=== PATIENT | male | born 1950 | race Caucasian/White ===

== ENCOUNTER → 2017-10-17 16:18 | Outpatient (REF) | payer OTHER, SELFPAY ==
[2017-10-17 20:01] LABS: Abs Immature Grans 0.02 k/cumm (0.0-0.09); Absolute Basophil Count 0.05 k/cumm (0.0-0.2); Absolute Eosinophil Count 0.33 k/cumm (0.0-0.7); Absolute Monocyte Count 0.91 k/cumm (0.11-0.7); Absolute Neutrophil Count 6.62 k/cumm (1.2-6.7); Basophils % 0.5; Eosinophils % 3.4; HCT 42.8 % (40.0-50.0); HGB 14.7 g/dL (13.5-17.5); Immature Grans % 0.2; Lymphocytes % 17.7; Mean Corp. HGB Concentration 34.3 g/dL (32.0-36.0); Mean Corpuscular Hemoglobin 30.1 pg (27.0-33.0); Mean Corpuscular Volume 87.5 fL (80-95); Mean Platelet Volume 10.2 fL (8.0-11.0); Monocytes % 9.4; Neutrophils % 68.8; Platelet Count 248 x1000/uL (130-400); RBC 4.89 m/cumm (4.50-6.00); RBC Distribution Width 12.7 % (11.8-14.1); White Blood Cell Count 9.63 k/cumm (4.4-10.8)
[2017-10-17 20:09] LABS: ALT 18 U/L (12-78); AST 12 U/L (15-37); Alkaline Phosphatase 80 U/L (46-116); Anion Gap 8.5 mmol/L (3-11); BUN 22 mg/dL (7-18); Bilirubin, Total 0.5 mg/dL (0.2-1.0); CO2 28.5 mmol/L (21.0-32.0); Calcium 8.8 mg/dL (8.5-10.1); Chloride 102 mmol/L (98-107); Glucose 87 mg/dL (70-100); Potassium 3.2 mmol/L (3.5-5.1); Sodium 139 mmol/L (136-145); Total Protein 7.1 g/dL (6.4-8.2)
== END ==
LOC: LBN 16:18
PROVIDERS: PCP Family Medicine; Visit Provider Family Medicine
DX: R19.7 Diarrhea, unspecified (principal)
CPT/HCPCS: 80053; 85025; 87324

== ENCOUNTER → 2017-10-21 07:20 | Outpatient (REF) | payer OTHER, SELFPAY | LOC: LBN 07:20 | PROVIDERS: PCP Family Medicine; Visit Provider Family Medicine | DX: R19.7 Diarrhea, unspecified (principal) | CPT/HCPCS: 87324 ==

== ENCOUNTER 2017-11-06 07:12 | Outpatient (REF) | payer OTHER, SELFPAY ==
[2017-11-07 11:37] LABS: Campylobacter PCR SEE COMMENTS; Salmonella PCR SEE COMMENTS; Shiga Toxin PCR SEE COMMENTS; Shigella/Enteroinvasive Ecoli SEE COMMENTS
== END 2017-11-06 07:32 ==
LOC: LBN 07:12
PROVIDERS: PCP Family Medicine; Visit Provider Internal Medicine Gastroenterology
DX: R19.7 Diarrhea, unspecified (principal)
CPT/HCPCS: 87329; 87505; 83630; 87324

== ENCOUNTER 2017-12-11 07:24 | Outpatient (CLI) | payer OTHER, SELFPAY ==
[2017-12-11 09:40] LABS: ALT 19 U/L (12-78); AST 14 U/L (15-37); Albumin 4.3 g/dL (3.4-5.0); Alkaline Phosphatase 58 U/L (46-116); Anion Gap 7.6 mmol/L (3-11); BUN 19 mg/dL (7-18); Bilirubin, Total 0.9 mg/dL (0.2-1.0); CO2 32.4 mmol/L (21.0-32.0); CREATININE 0.97 mg/dL (0.70-1.30); Chloride 101 mmol/L (98-107); Glucose 88 mg/dL (70-100); Potassium 3.8 mmol/L (3.5-5.1); Sodium 141 mmol/L (136-145); Total Protein 7.3 g/dL (6.4-8.2)
[2017-12-11 12:41] LABS: Calcium 9.8 mg/dL (8.5-10.1)
[2017-12-11 13:38] LABS: Cholesterol 140 mg/dL (50-200); HDL Cholesterol 49 mg/dL (40-60); LDL CHOLESTEROL 86 mg/dL (<100); Triglyceride 47 mg/dL (30-150)
[2017-12-12 12:15] LABS: PSA, Diagnostic 1.1 ng/ml (0-4.5)
== END 2017-12-11 07:44 ==
PROVIDERS: PCP Family Medicine; Referring Provider Urology; Visit Provider Family Medicine
DX: E78.5 Hyperlipidemia, unspecified (principal); N41.1 Chronic prostatitis; Z12.5 Encounter for screening for malignant neoplasm of prostate
CPT/HCPCS: 36415; 80053; 80061; 83721; 84153

== ENCOUNTER 2018-06-17 08:54 | Outpatient (REF) | payer OTHER, SELFPAY ==
[2018-06-17 13:44] LABS: Lipase 150 U/L (73-393)
[2018-06-17 13:49] LABS: ALT 18 U/L (12-78); AST 12 U/L (15-37); Albumin 4.4 g/dL (3.4-5.0); Alkaline Phosphatase 64 U/L (46-116); Anion Gap 7.4 mmol/L (3-11); BUN 26 mg/dL (7-18); Bilirubin, Total 0.8 mg/dL (0.2-1.0); CO2 30.6 mmol/L (21.0-32.0); CREATININE 1.28 mg/dL (0.70-1.30); Chloride 99 mmol/L (98-107); Estimated GFR 56.23 (mL/min/1.73m2); Glucose 103 mg/dL (70-100); Potassium 3.7 mmol/L (3.5-5.1); Sodium 137 mmol/L (136-145); Total Protein 7.3 g/dL (6.4-8.2)
[2018-06-17 13:59] LABS: Calcium 9.2 mg/dL (8.5-10.1)
[2018-06-18 09:48] LABS: PSA, Diagnostic 1.3 ng/ml (0-4.5)
== END 2018-06-17 09:14 ==
LOC: LBN 08:54
PROVIDERS: Urology; PCP Family Medicine; Visit Provider Family Medicine
DX: R10.9 Unspecified abdominal pain (principal); N40.1 Benign prostatic hyperplasia with lower urinary tract symptoms; N13.8 Other obstructive and reflux uropathy; N41.1 Chronic prostatitis
CPT/HCPCS: 80053; 83690; 84153

== ENCOUNTER 2018-06-18 01:09 | Outpatient (CLI) | payer OTHER, SELFPAY ==
--- NOTE | 2018-06-18 07:08 | DI.US_ITS ---
SYMPTOM/DIAGNOSIS: SPLENIC CYST PREVIOUSLY, NEW PAIN IN SAME AREA, R10.9 ABDOMEN ULTRASOUND: The aorta and vena cava are normal. The liver is normal. The gallbladder is intact. No gallstones are seen. There is no evidence of ductal dilatation. The pancreas is intact. The spleen is unremarkable. The right kidney measures 11 cm. An 8 mm. lateral cyst is demonstrated. The left kidney measures 10.3 cm. There is no evidence of abdominal free fluid. SUMMARY: The study is unremarkable save for an 8 mm. right renal cyst.
== END 2018-06-18 01:29 ==
PROVIDERS: PCP Family Medicine; Visit Provider Family Medicine
DX: R10.9 Unspecified abdominal pain (principal); N28.1 Cyst of kidney, acquired
CPT/HCPCS: 76700

== ENCOUNTER 2018-12-02 19:56 | Inpatient (IN) | payer OTHER, SELFPAY ==
[2018-12-02] VITALS (34 sets, daily range): BP systolic 113–146; BP diastolic 49–86; PULSE 61–90; RESP 12–27; TEMP 36.5–37; O2SAT 92–98
--- NOTE | 2018-12-02 20:11 | ED.GENADUL_ITS ---
Discharge Plan Disposition Patient Disposition: [facility] INPATIENT Condition: Fair Discharge Details Chief Complaint: Chest Pain Clinical Impression: Chest pain Primary Care Provider: Kelvin Hicks ED Provider: Lucio Pratt [place] Meds and New Rx's Prescriptions: No Action finasteride 5 mg tablet 5 mg PO DAILY Qty: 90 RF: 4 glucosam-chond mk-lrrovf-ai ac 1 EACH capsule 1 ea PO BID RF: 0 aspirin 325 MG tablet 325 mg PO DAILY RF: 0 acetaminophen 500 MG tablet 1,500 mg PO BID RF: 0 nitroglycerin [Nitrostat] 0.4 MG tablet, sublingual 0.4 mg Sublingual PRN Qty: 30 RF: 12 pantoprazole [Protonix] 40 mg tablet,delayed release (DR/EC) 40 mg PO DAILY Qty: 90 RF: 3 metoprolol succinate 100 mg tablet extended release 24 hr 100 mg PO DAILY Qty: 90 RF: 3 rosuvastatin [Crestor] 10 mg tablet 10 mg PO DAILY Qty: 90 RF: 3 moexipril-hydrochlorothiazide 15-25 mg tablet 1 tab PO DAILY Qty: 90 RF: 3 tamsulosin 0.4 mg capsule 0.4 mg PO BID RF: 0 Medical Decision Making Patient presenting with nonexertional chest pain that radiates to left arm. Occurring more frequently and lasting longer since initial symptoms a week to week and a half ago. No associated symptoms. Atypical presentation for coronary disease in the past with normal stress testing but continued symptoms and positive calf. ACS is a strong consideration. Initial EKG does not show acute ST changes. IV in place. He does take 325 of aspirin a day and took it this morning. He is given a half dose chewable aspirin here. Laboratory studies and chest x-ray ordered. Will discuss with hospitalist observation admission for cardiology eval tomorrow. Patient's initial laboratory studies unremarkable other than hypokalemia which is replaced orally. Chest x-ray unremarkable. Case discussed with hospitalist who agrees with observation admission. Patient remained pain-free and stable here. Medical Records Medical records reviewed: Yes I reviewed the patient's medical records. Lab Data Lab results reviewed: Yes I reviewed the patient's lab results. ECG Data Attestation: I personally reviewed and interpreted this ECG (s) as follows: Prior ECG tracings: available for review Interpretation: Normal sinus rhythm at a rate of 83. Frequent PVCs. Normal intervals and axis otherwise. No acute ST changes. No significant change from previous other than the PVCs. HPI General Mode of arrival: ambulatory . Date/Time Provider Initiated Documentation: 12/02/18 20:08 . Limitations to Documentation: no limitations . Information obtained by: patient, family, RN notes reviewed and old records reviewed . HPI Narrative: Patient presents to ED with complaint of intermittent chest pain occurring on and off for the last week to week and a half. Described as a burning sensation in the left chest that radiates to shoulder. The last few times it has been radiating down the arm. It is been random and not exertional. There are no associated symptoms. He does have known coronary disease with previous stenting. He had atypical presentations at that time with some shortness of breath on exertion not so much chest pain. Per his and patient stress testing was always negative but because of continued symptoms he was cathed and found to have greater than 95% occlusion. Today's episodes of pain have been prolonged. Currently no symptoms. He does take 325 of aspirin a day. He is off Plavix. Related Data Home Medications Medication Instructions Recorded Confirmed glucosam-chond mp-giufyc-to ac 1 ea PO BID 05/23/12 12/02/18 aspirin 325 mg PO DAILY tab-cap 05/28/12 12/02/18 acetaminophen 1,500 mg PO BID tab-cap 11/30/16 12/02/18 nitroglycerin [Nitrostat] 0.4 mg SUBLINGUAL PRN #30 tab 11/30/16 12/02/18 pantoprazole 40 mg tablet,delayed 40 mg PO DAILY #90 tab 05/23/18 12/02/18 release finasteride 5 mg tablet 5 mg PO DAILY #90 tab 06/02/18 12/02/18 metoprolol succinate 100 mg 100 mg PO DAILY #90 tab 08/12/18 12/02/18 tablet,extended release 24 hr rosuvastatin 10 mg tablet 10 mg PO DAILY #90 tab 09/01/18 12/02/18 moexipril 15 1 tab PO DAILY #90 tab-cap 10/13/18 12/02/18 mg-hydrochlorothiazide 25 mg tablet tamsulosin 0.4 mg PO BID 12/02/18 12/02/18 Previous Rx's Medication Instructions Recorded nitroglycerin [Nitrostat] 0.4 mg SUBLINGUAL PRN #30 tab 11/30/16 pantoprazole 40 mg tablet,delayed 40 mg PO DAILY #90 tab 05/23/18 release finasteride 5 mg tablet 5 mg PO DAILY #90 tab 06/02/18 metoprolol succinate 100 mg 100 mg PO DAILY #90 tab 08/12/18 tablet,extended release 24 hr rosuvastatin 10 mg tablet 10 mg PO DAILY #90 tab 09/01/18 moexipril 15 1 tab PO DAILY #90 tab-cap 10/13/18 mg-hydrochlorothiazide 25 mg tablet Allergies Allergy/AdvReac Type Severity Reaction Status Date / Time iohexol [From Omnipaque] Allergy Intermediate RASH HEAD Verified 12/02/18 20:04 TO TOE atorvastatin Allergy Unknown Skin Rash Verified 12/02/18 20:04 General Stated Complaint: Chest Pain MORRIS: 2 Review of Systems Review of Systems Narrative: 12/08 Review of Systems completed and is negative except as stated above in HPI (Systems reviewed: Const, Eyes, ENT, Resp, CV, GI, , MSK, Skin, Neuro) PFSH Medical History 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) Cor athrscl-uns vessel (Chronic 06/09/07) 2 CHIQUITA stents RCA 05/2007; and one RCA 03/2010; Heitzman Essential hypertension (Chronic 11/28/12) Gastroesophageal reflux disease (Chronic 02/25/03) EGD Dr Rapp ([facility] [place]) 2003; senior care PPI Other and unspecified hyperlipidemia (Chronic 05/28/12) LDL baseline 167 Surgical History History of heart artery stent (Chronic) Social History Smoking/Tobacco Use Status: Never Alcohol Intake: current Alcohol Intake frequency: a few times a month Alcohol type: beer Drug use: Never Substance use type: does not use Adopted: Yes Household members: spouse Housing: house Number of Children: 2 number of grandchildren: 2 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 Mildly hypertensive. Otherwise normal vital signs and room air pulse symmetry. Const: WDWN male in NAD. HEENT: NC/AT. Normal facial exam. Eyes: Normal conjunctiva and sclera. Neck: Supple. Trachea midline. Lungs: Normal respiratory effort. Lungs are clear. Cor: RRR without murmur/gallop. Good radial pulses. GI: Soft. NT/ND. No guarding or rebound. Neuro: A+O x 3. CN grossly in tact. Good strength and no focal deficit. Ext: No C/C/E. No calf tenderness. Skin: Warm and dry without rash. Course Vital Signs Vital signs: Vital Signs Temperature 98.1 F 12/02/18 19:56 Pulse 75 12/02/18 19:56 Respiratory Rate 20 12/02/18 19:56 Blood Pressure 146/77 H 12/02/18 19:56 Pulse Oximetry 97 12/02/18 19:56 Temperature 98.1 F 12/02/18 19:56 Temperature Source Skin 12/02/18 19:56 Pulse 75 12/02/18 19:56 Respiratory Rate 20 12/02/18 19:56 Respiratory Effort 12/02/18 20:07 Blood Pressure 146/77 H 12/02/18 19:56 Blood Pressure Position Sitting 12/02/18 19:56 Pulse Oximetry 97 12/02/18 19:56 Oxygen Delivery Method Room Air 12/02/18 19:56 Oxygen Flow Rate 0 12/02/18 19:56 Pain Level 2 12/02/18 19:56 Comment points to left side of chest 12/02/18 19:56
--- NOTE | 2018-12-02 20:24 | DI.RAD_ITS ---
EXAM: XR CHEST 2V PA LATERAL INDICATION: chest pain. COMPARISON: CHEST 2 VIEWS PA,LAT from 06/05/2017 TECHNIQUE: 2D digital imaging was performed. FINDINGS: The lungs are well expanded and free of infiltrate. There is no pleural effusion. The cardiovascular structures are intact. IMPRESSION: Normal chest.
[2018-12-02] MEDS: Aspirin 81 MG CHEW 243 MG CH (20:36)
[2018-12-02] MEDS: Normal Saline Flush 10 ML SYR IVP (20:37)
[2018-12-02 20:53] LABS: Abs Immature Grans 0.03 k/cumm (0.0-0.09); Absolute Basophil Count 0.03 k/cumm (0.0-0.2); Absolute Eosinophil Count 0.52 k/cumm (0.0-0.7); Absolute Lymphocyte Count 2.23 k/cumm (1.2-3.4); Absolute Monocyte Count 0.63 k/cumm (0.11-0.7); Basophils % 0.4; Eosinophils % 6.8; HCT 43.1 % (40.0-50.0); HGB 14.6 g/dL (13.5-17.5); Immature Grans % 0.4; Lymphocytes % 29.2; Mean Corp. HGB Concentration 33.9 g/dL (32.0-36.0); Mean Corpuscular Hemoglobin 30.1 pg (27.0-33.0); Mean Corpuscular Volume 88.9 fL (80-95); Mean Platelet Volume 9.9 fL (8.0-11.0); Monocytes % 8.2; Platelet Count 212 x1000/uL (130-400); RBC 4.85 m/cumm (4.50-6.00); RBC Distribution Width 12.3 % (11.8-14.1); White Blood Cell Count 7.64 k/cumm (4.4-10.8)
[2018-12-02 20:57] LABS: ALT 15 U/L (16-63); AST 11 U/L (15-37); Albumin 4.1 g/dL (3.4-5.0); Alkaline Phosphatase 59 U/L (46-116); BUN 27 mg/dL (7-18); Bilirubin, Total 0.4 mg/dL (0.2-1.0); CREATININE 1.22 mg/dL (0.70-1.30); Calcium 8.9 mg/dL (8.5-10.1); Chloride 100 mmol/L (98-107); Estimated GFR 59.43 (mL/min/1.73m2); Glucose 96 mg/dL (70-100); Magnesium 2.1 mg/dL (1.8-2.4); Potassium 3.2 mmol/L (3.5-5.1); Sodium 140 mmol/L (136-145); Total Protein 7.4 g/dL (6.4-8.2); Troponin I < 0.05 ng/mL (0.00-0.06)
[2018-12-02 20:59] LABS: PTT Activated 25.4 sec (21.0-31.4); Prothrombin Time 10.3 sec (9.3-11.0)
--- NOTE | 2018-12-02 21:02 | DI.VRAD_ITS ---
PROCEDURE INFORMATION: Exam: XR Chest, 2 Views Exam date and time: 12/02/2018 8:49 PM Clinical history: 68 years old, male; Other: Chest pain TECHNIQUE: Imaging protocol: XR of the chest Views: 2 views. COMPARISON: CR CHEST 2 VIEWS PA,LAT 06/05/2017 7:52 AM FINDINGS: Lungs: Unremarkable. No consolidation. Pleural space: Unremarkable. No pleural effusion. No pneumothorax. Heart/Mediastinum: Unremarkable. No cardiomegaly. Bones/joints: Unremarkable. IMPRESSION: No acute findings. Dictated and Authenticated by: Meagan Baum MD. Ordering:TEE Valdes MD
[2018-12-02] MEDS: Potassium Chloride 20 MEQ TABCR 40 MEQ PO (21:28)
--- NOTE | 2018-12-02 21:41 | HPE_ITS ---
Date of service: 12/02/18 Time of Service: 21:41 Assessment and Plan Assessment and plan (1) Chest pain: Status: Acute Assessment and plan: Chest pain, possible ACS. Will trend enzymes, further evaluation based thereupon. Note that he reports stress testing has always been negative but would still likely be place to start (assuming negative enzymes), but low threshold for cath given history. Ectopy noted, will replace potassium, could be the operative factor, though could be non-specific sign of cardiac injury. Reviewed Advance directives, requests full code. History of Present Illness History of Present Illness Chief Complaint: Chest pain Narrative: 68 male with remote h/o CAD, s/p stent 2007 and 2010. Usually quite active without CP. For past week has noted accelerating episodes of non-exertional CP: left sided, radiation to left shoulder and arm, without associated SOB, nausea or diaphoresis. Duration initially quite brief, but today lasting up to 30 minutes. Here in ER (pain free) initial w/u of note for negative CXR, EKG showing old q waves leads V1-2, no acute ST-TW changes, and frequent PVCs (he denies history of such). Troponin negative and has been symptom free here in ER. he is admitted for further evaluation. 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 What type of physical activity do you participate in: walking Frequency: 3-4 times per week Do you feel safe at home: Yes Do you feel safe in your relationship?: Yes Meds Home Medications and Allergies Home Medications Medication Instructions Recorded Confirmed Type glucosam-chond tm-pyzaqh-mv ac 1 ea PO BID 05/23/12 12/02/18 History aspirin 325 mg PO DAILY tab-cap 05/28/12 12/02/18 History acetaminophen 1,500 mg PO BID tab-cap 11/30/16 12/02/18 History nitroglycerin [Nitrostat] 0.4 mg SUBLINGUAL PRN #30 tab 11/30/16 12/02/18 Rx pantoprazole 40 mg tablet,delayed 40 mg PO DAILY #90 tab 05/23/18 12/02/18 Rx release finasteride 5 mg tablet 5 mg PO DAILY #90 tab 06/02/18 12/02/18 Rx metoprolol succinate 100 mg 100 mg PO DAILY #90 tab 08/12/18 12/02/18 Rx tablet,extended release 24 hr rosuvastatin 10 mg tablet 10 mg PO DAILY #90 tab 09/01/18 12/02/18 Rx moexipril 15 1 tab PO DAILY #90 tab-cap 10/13/18 12/02/18 Rx mg-hydrochlorothiazide 25 mg tablet tamsulosin 0.4 mg PO BID 12/02/18 12/02/18 History Allergies Allergy/AdvReac Type Severity Reaction Status Date / Time iohexol [From Omnipaque] Allergy Intermediate RASH HEAD Verified 12/02/18 20:04 TO TOE atorvastatin Allergy Unknown Skin Rash Verified 12/02/18 20:04 Exam Narrative Exam Narrative: 122/54, 70, 13-27 (recorded, toni exam RR 18), 36.7. HEENT AT /NC; neck supple w/o JVD; lungs clear; heart frequent ectopic w/o m/r/g; abdomen soft NT; extremities no edema, calves NT, pul 2+/=; neuro non-focal Results Labs Result diagrams: 12/02/18 20:24 12/02/18 20:24 Labs: Laboratory Results - last 24 hr 12/02/18 12/02/18 12/02/18 20:24 20:24 20:24 WBC 7.64 RBC 4.85 Hgb 14.6 Hct 43.1 MCV 88.9 MCH 30.1 MCHC 33.9 RDW 12.3 Plt Count 212 MPV 9.9 Immature Gran % 0.4 Neutrophils % 55.0 Lymphocytes % 29.2 Monocytes % 8.2 Eosinophils % 6.8 Basophils % 0.4 Absolute Neutrophils 4.20 Absolute Lymphocytes 2.23 Absolute Monocytes 0.63 Absolute Eosinophils 0.52 Absolute Basophils 0.03 PT 10.3 INR 1.0 APTT 25.4 Sodium 140 Potassium 3.2 L Chloride 100 Carbon Dioxide 30.0 Anion Gap 10.0 BUN 27 H Creatinine 1.22 Estimated GFR/1.73 m2 59.43 Glucose 96 Calcium 8.9 Magnesium 2.1 Total Bilirubin 0.4 AST 11 L ALT 15 L Alkaline Phosphatase 59 Troponin I < 0.05 Total Protein 7.4 Albumin 4.1 Last Vital Signs Temp 36.7 C 12/02/18 19:56 Pulse 70 12/02/18 21:16 Resp 27 H 12/02/18 21:16 BP 122/54 L 12/02/18 21:16 Pulse Ox 98 12/02/18 21:16
[2018-12-02] MEDS: Potassium Chloride 20 MEQ TABCR PO (22:00)
[2018-12-02] MEDS: Normal Saline 1,000 ML 50 ML IV (22:30)
[2018-12-02] MEDS: POTASSIUM CHLORIDE 10 MEQ/100 ML BAG 100 MEQ IVPB (22:33)
[2018-12-03] VITALS (69 sets, daily range): BP systolic 113–154; BP diastolic 59–98; PULSE 51–70; RESP 10–26; O2SAT 95–97
[2018-12-03 01:08] LABS: Troponin I < 0.05 ng/mL (0.00-0.06)
[2018-12-03 06:50] LABS: Potassium 3.6 mmol/L (3.5-5.1)
[2018-12-03 07:12] LABS: Troponin I < 0.05 ng/mL (0.00-0.06)
[2018-12-03] MEDS: Metoprolol CR 100 MG TABCR PO (07:58)
[2018-12-03] MEDS: hydroCHLOROthiazide 25 MG TAB PO (07:58)
[2018-12-03] MEDS: Aspirin 325 MG TAB PO (07:58)
[2018-12-03] MEDS: Finasteride 5 MG TAB PO (07:58)
[2018-12-03] MEDS: Tamsulosin 0.4 MG CAPCR PO (07:58)
[2018-12-03] MEDS: Rosuvastatin 10 MG TAB PO (07:59)
[2018-12-03] MEDS: Pantoprazole 40 MG TABCR PO (07:59)
--- NOTE | 2018-12-03 08:43 | W.PM.PROGNOT ---
Date of Service Date of service: 12/03/18 Time of Service: 12:11 Assessment and Plan Assessment and plan (1) Chest pain: Status: Acute Assessment and plan: I am most concerned about this morning's episode, which according to the patient started at rest. I am not sure why there is a discrepancy with the nursing story. The patient is a good historian. Await echo results. If echo is normla, the patient should have a nuclear stress test in am. If it is abnormal, will discuss with cardiology - but likely proceed with a transfer for a cardiac cath. For now, continue aspirin, rosuvastatin, toprol XL. (2) Other and unspecified hyperlipidemia: Status: Chronic Assessment and plan: At goal - continue rosuvastatin (3) Gastroesophageal reflux disease: Status: Chronic Assessment and plan: Continue protonix (4) Essential hypertension: Status: Chronic Assessment and plan: Hold Rome-i at this time (may need cardiac cath). (5) DVT prophylaxis: Status: Acute Assessment and plan: lovenox sc (6) Discharge planning issues: Status: Acute Assessment and plan: Full code Dispo dependent on cardiac workup. Subjective Subjective Interval history since last seen: Per nursing, CP happened this morning while urinating, though the patient states it was at rest. Did not have dizziness, radiation to the arm like he did yesterday, shortness of breath or nausea. It lasted for about 10 minutes. Yesterday's episodes - 1st three with exertion, last one after a meal. States last echo was done at [facility] [place], and it sounds like it was a stress echo. EKG - no changes with the chest pain. SBP was in 120's, HR in 60's, SR. Right now chest pain free. Exam Narrative Exam Narrative: General: very pleasant, mildly anxious middle-aged male, looks comfortable in bed, A&Ox3, speaking with a slight speech impediment HEENT: EOMI, MMM Heart: RRR, no m/r/g Lungs: CTAB GI: abdomen is soft, nontender, nondistended Extremities: no e/c/c BLE's Objective Objective Clinical Data: Abnormal lab results 12/02/18 Range/Units 20:24 Potassium 3.2 L (3.5-5.1) mmol/L BUN 27 H (7-18) mg/dL AST 11 L (15-37) U/L ALT 15 L (16-63) U/L Vital Signs Temperature 36.5 C 12/02/18 23:29 Temperature Source Temporal Artery Scan 12/02/18 23:29 Pulse 61 12/03/18 07:46 Pulse Rhythm Regular 12/03/18 08:04 Pulse 56 L 12/03/18 06:32 Respiratory Rate 16 12/03/18 07:46 Respiratory Effort Non-Labored 12/03/18 08:04 Respiratory Depth Normal 12/03/18 08:04 Respiratory Pattern Normal 12/03/18 08:04 Blood Pressure 138/79 12/03/18 07:46 Blood Pressure Mean 81 12/03/18 06:32 Blood Pressure Position Sitting 12/02/18 23:29 Pulse Oximetry 95 12/03/18 06:20 Oxygen Delivery Method Room Air 12/02/18 23:29 Oxygen Flow Rate 0 12/02/18 23:29 Pain Level 2 12/03/18 06:19 Comment points to left side of chest 12/02/18 19:56 Intake & Output 12/02/18 12/02/18 12/03/18 11:59 23:59 11:59 Intake Total 240 / 240 Output Total 700 / 700 Balance -460 / -460 Weight 72.9 kg Intake: Oral 240 / 240 Output: Urine 700 / 700 Other: Urine Color Yellow Urine Appearance Clear Voiding Methods Urinal Laboratory Results WBC 7.64 k/cumm (4.4-10.8) 12/02/18 20:24 RBC 4.85 m/cumm (4.50-6.00) 12/02/18 20:24 Hgb 14.6 g/dL (13.5-17.5) 12/02/18 20:24 Hct 43.1 % (40.0-50.0) 12/02/18 20:24 MCV 88.9 fL (80-95) 12/02/18 20:24 MCH 30.1 pg (27.0-33.0) 12/02/18 20:24 MCHC 33.9 g/dL (32.0-36.0) 12/02/18 20:24 RDW 12.3 % (11.8-14.1) 12/02/18 20:24 Plt Count 212 x1000/uL (130-400) 12/02/18 20:24 MPV 9.9 fL (8.0-11.0) 12/02/18 20:24 Immature Gran % 0.4 12/02/18 20:24 Neutrophils % 55.0 12/02/18 20:24 Lymphocytes % 29.2 12/02/18 20:24 Monocytes % 8.2 12/02/18 20:24 Eosinophils % 6.8 12/02/18 20:24 Basophils % 0.4 12/02/18 20:24 Absolute Neutrophils 4.20 k/cumm (1.2-6.7) 12/02/18 20:24 Absolute Lymphocytes 2.23 k/cumm (1.2-3.4) 12/02/18 20:24 Absolute Monocytes 0.63 k/cumm (0.11-0.7) 12/02/18 20:24 Absolute Eosinophils 0.52 k/cumm (0.0-0.7) 12/02/18 20:24 Absolute Basophils 0.03 k/cumm (0.0-0.2) 12/02/18 20:24 PT 10.3 sec (9.3-11.0) 12/02/18 20:24 INR 1.0 (0.9-1.1) 12/02/18 20:24 APTT 25.4 sec (21.0-31.4) 12/02/18 20:24 Sodium 140 mmol/L (136-145) 12/02/18 20:24 Potassium 3.6 mmol/L (3.5-5.1) 12/03/18 06:15 Chloride 100 mmol/L (98-107) 12/02/18 20:24 Carbon Dioxide 30.0 mmol/L (21.0-32.0) 12/02/18 20:24 Anion Gap 10.0 mmol/L (3-11) 12/02/18 20:24 BUN 27 mg/dL (7-18) H 12/02/18 20:24 Creatinine 1.22 mg/dL (0.70-1.30) 12/02/18 20:24 Estimated GFR/1.73 m2 59.43 (mL/min/1.73m2) 12/02/18 20:24 Glucose 96 mg/dL (70-100) 12/02/18 20:24 Calcium 8.9 mg/dL (8.5-10.1) 12/02/18 20:24 Magnesium 2.1 mg/dL (1.8-2.4) 12/02/18 20:24 Total Bilirubin 0.4 mg/dL (0.2-1.0) 12/02/18 20:24 AST 11 U/L (15-37) L 12/02/18 20:24 ALT 15 U/L (16-63) L 12/02/18 20:24 Alkaline Phosphatase 59 U/L (46-116) 12/02/18 20:24 Troponin I < 0.05 ng/mL (0.00-0.06) 12/03/18 06:15 Total Protein 7.4 g/dL (6.4-8.2) 12/02/18 20:24 Albumin 4.1 g/dL (3.4-5.0) 12/02/18 20:24
[2018-12-03 09:36] LABS: Anion Gap 8.3 mmol/L (3-11); BUN 25 mg/dL (7-18); CO2 30.7 mmol/L (21.0-32.0); CREATININE 1.21 mg/dL (0.70-1.30); Calcium 8.6 mg/dL (8.5-10.1); Calculated LDL 47 mg/dL; Chloride 102 mmol/L (98-107); Cholesterol 123 mg/dL (50-200); Glucose 121 mg/dL (70-100); HDL Cholesterol 35 mg/dL (40-60); Magnesium 2.1 mg/dL (1.8-2.4); Potassium 3.2 mmol/L (3.5-5.1); Sodium 141 mmol/L (136-145); Triglyceride 208 mg/dL (30-150)
--- NOTE | 2018-12-03 10:30 | DI.US_ITS ---
APPROVED REPORT EXAM: Comprehensive 2D, Doppler, and color-flow Echocardiogram Patient Location: In-Patient Inspector Eyeglass: ALEXUS Dia (AE) Indications: chest pain , ? WMA Left Ventricle The left ventricle is normal size. Left ventricular systolic function is mildly decreased. There is n ormal left ventricular wall thickness. The entire anterior wall is hypokinetic The basal and mid ante rolateral kay are hypokinetic The remaining kay are within normal limits The left ventricular rene stolic function is normal. LVEF is 50-55%. Right Ventricle The right ventricle is normal size. The right ventricular systolic function is normal. Atria The left atrium size is normal. The right atrium size is normal. Aortic Valve The aortic valve is normal in structure. There is no aortic valvular stenosis. Mild aortic regurgitat ion is present Mitral Valve The mitral valve is normal in structure. There is trace mitral valve regurgitation Tricuspid Valve The tricuspid valve is normal in structure. There is mild tricuspid regurgitation. TR V-max =2.2 m/s This corresponds to an RVSP 25-30 mmHg Pulmonic Valve The pulmonary valve is normal in structure. Trace pulmonic regurgitation. Great Vessels The aortic root is normal in size. The aortic root is normal in size. The IVC is dilated with normal collapse Pericardium There is no pericardial effusion. 2D Dimensions IVSd 1.0 cm M: 0.6-1.2 LA Volume Index A4C 34.0 mL/m2 PWd 0.8 cm M: 0.6 - 1.2 LA Area A4C 19.0 cm2 LVDd 5.4 cm M: 4.2 - 5.9 LVDs 4.2 cm M: 2.5 - 4.0 Aortic Root 3.3 cm M: 3.1 - 3.7 RA Area A4C 19.0 cm2 LVOT 2.2 cm (M/F) 1.5-2.5 Ascending Aorta 3.3 cm M: 2.6 - 3.4 LVEF (Stafford's) 48.9 % M: 52 - 72 FS 22.4 % LV Diastology E Decel Time 195.0 (160-240 msec) E/A Ratio 0.9 MED E' 0.1 (<0.07 m/s) LV E/e MED 8.7 (>14) LAT E' 0.1 (<0.1 m/s) LV E/e LAT 6.7 (>14) Aortic Valve LVOT Peak Boogie. 0.7 m/s LVOT Peak Gr. 2.0 mmHg LVOT Mean Gr. 1.1 mmHg LVOT VTI 0.2 m EDIL (VTI) 2.5 (2.5-4.5 cm2) EDIL (VTI) Index 1.5 cm/m2 Mitral Valve MV A Velocity 0.7 (0.4-1.3 m/s) E/A Ratio 0.9 MV Decel. Time 195.3 (160-240 msec) MV PHT 56.6 msec MVA PHT 3.9 cm2 Tricuspid Valve TR P. Velocity 2.2 m/s TR P. Gradient 19.8 mmHg Conclusion Left Ventricle : The left ventricle is normal size. There is normal left ventricular wall thickness. Wall motion abnormalities: The entire anterior wall is hypokinetic The basal and mid anterolateral w alls are hypokinetic. The remaining kay are within normal limits. Right Ventricle : The right ventricle is normal size. The right ventricular systolic function is norm al. Atria : The left atrium size is normal. The right atrium size is normal. Mitral Valve : The mitral valve is normal in structure. There is trace mitral valve regurgitation Aortic Valve : The aortic valve is normal in structure. Mild aortic regurgitation is present Tricuspid Valve : The tricuspid valve is normal in structure. There is mild tricuspid regurgitation. TR V-max =2.2 m/s This corresponds to an RVSP 25-30 mmHg Pulmonic Valve : The pulmonary valve is normal in structure. Trace pulmonic regurgitation. Great Vessels : The aortic root is normal in size. The aortic root is normal in size. The IVC is dil ated with normal collapse Pericardium : There is no pericardial effusion. There is no echocardiogram available for comparison
--- NOTE | 2018-12-03 11:07 | PHARADMIT ---
Admission Pharmacy Clinical Review Code Status Full Code Current Weight 72.9 kg Renally Cleared and Narrow Therapeutic Index Meds CrCl ~61 QTc Value / Action Taken QTc 426 BP Control, Fever BP 138/79, afebrile Electrolytes reviewed Na 141, K+ 3.2, Mag 2.1 DVT Prophylaxis Aspirin 325 Opiate Usage / Scheduled Bowel Regimen Ordered None Plt/SCr for Heparin / Enoxaparin Plt 212, Scr 1.22 INR for Warfarin H/H stable, WBC/Bands H/H 14.6/43.1, WBC 7.64 Antibiotic appropriateness Cultures and Sensitivities Surgical ABX d/c within 24 hr DM control / Insulin Dosing Heart Failure (Check EF%) (JATINDER's, B-Block, Diuretics) HCTZ, metoprolol IV to PO Switch Home Meds Reviewed Yes - all ok Home Meds Not Ordered Moexipril -- will need to switch to another ACEi if continuing while here (lisinpril 20mg) Comments Hx of two stents, will have ECHO today/tomorrow
[2018-12-03 11:21] LABS: Hemoglobin A1C 5.6 % (4.5-6.2)
--- NOTE | 2018-12-03 12:46 | INITIAL_ITS ---
- If Service Date Differs Date of service: 12/03/18 Time of Service: 12:46 Care Management Initial Assess REASON FOR HOSPITALIZATION:: chest pain PAST MEDICAL HISTORY/PAST SURGICAL HISTORY:: Medical History: 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). Cor athrscl-uns vessel (Chronic 06/09/07). 2 CHIQUITA stents RCA 05/2007; and one RCA 03/2010; [place]. Essential hypertension (Chronic 11/28/12). Gastroesophageal reflux disease (Chronic 02/25/03). 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 Other and unspecified hyperlipidemia (Chronic 05/28/12). LDL baseline 167. Surgical History: History of heart artery stent (Chronic) PREVIOUS FUNCTIONAL STATUS/SOCIAL/FAMILY SUPPORTS:: Clark lives in a single family home in [facility] with his Kortney. They have 2 children: a son and a daughter. Both children live locally with their families and provide a strong support system to Clark and his . Clark retired about a year ago but continues to work 2-3 days a week at [employer]. He is independent at baseline. CURRENT FUNCTIONAL STATUS:: Clark was sitting up in bed visiting with his daughter when CM met with him. He was pleasant and cooperative and readily engaged in conversation. He denies chest pain, SOB or any other symptoms. It is unclear if he will be transferred to [facility] at this time as the results of testing are not as yet available. He has had cardiac events in the past requiring stenting. ADVANCE DIRECTIVES:: Not completed at this time but requested and was given copies of the [facility] AD forms by CM. Has patient been provided with information about the portal?: No Did the patient sign up for the portal?: No CODE STATUS:: Full Code INSURANCE COVERAGE / FINANCIAL ISSUES:: [employer] CURRENT HOME/COMMUNITY SERVICES/EQUIPMENT:: none PRIMARY CARE PHYSICIAN:: Kelvin Hicks POTENTIAL DISCHARGE NEEDS:: uncertain at this time, pending disposition PATIENT/FAMILY EDUCATION NEEDS:: Discharge plan, limitations, follow up plan, Ask Me Three TRANSPORTATION:: to be determined by disposition - home vs emergent transfer to [facility] PLAN:: Clark is undergoing testion for chest pain. he has had cardiac surgery in the past and may require transfer. CM to continue to support patient, family and discharge planning needs.
--- NOTE | 2018-12-03 13:15 | W.CARDCONSUL ---
Date of service: 12/03/18 Time of Service: 13:15 Assessment and Plan Assessment and plan (1) Chest pain: Status: Acute Assessment and plan: Echo 12/03/2018 Conclusion Left Ventricle : The left ventricle is normal size. There is normal left ventricular wall thickness. Wall motion abnormalities: The entire anterior wall is hypokinetic The basal and mid anterolateral kay are hypokinetic. The remaining kay are within normal limits. Right Ventricle : The right ventricle is normal size. The right ventricular systolic function is normal. Atria : The left atrium size is normal. The right atrium size is normal. Mitral Valve : The mitral valve is normal in structure. There is trace mitral valve regurgitation Aortic Valve : The aortic valve is normal in structure. Mild aortic regurgitation is present Tricuspid Valve : The tricuspid valve is normal in structure. There is mild tricuspid regurgitation. TR V-max =2.2 m/s This corresponds to an RVSP 25-30 mmHg Pulmonic Valve : The pulmonary valve is normal in structure. Trace pulmonic regurgitation. Great Vessels : The aortic root is normal in size. The aortic root is normal in size. The IVC is dilated with normal collapse Pericardium : There is no pericardial effusion. There is no echocardiogram available for comparison 1. Chest pain: The patient has a concerning history with worsening typical chest pain. His EKG is unchanged from baseline and troponins are negative. That said, his echocardiogram is concerning with anterior wall motion abnormalities and drop in EF. We do not have a prior echo to compare but nuclear stress test in 2018 was normal without wall motion abnormalities. According to [facility] records the patient had stenting to his RCA but had additional non-hemodynamic significant lesions as well. 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 History of Present Illness History of Present Illness Chief Complaint: Chest pain Narrative: Mr Mcdonald is a 68-year-old male with a past medical history significant for coronary artery disease status post stenting in both 2007 and 2010 (RCA) who was admitted yesterday for chest pain. The patient states that for the last 3 weeks he has been noting intermittent episodes of chest pain the last about 10 minutes. He says that the pain starts in his chest and moves to his shoulder up his neck and down his left arm. They come mostly with exercise but occasionally with rest and always resolve on their own spontaneously. He denies taking nitroglycerin. Yesterday he had 4 episodes of this chest pain which was more than he normally has in the day. He also had a severe episode while at rest and these 2 things together made him concerned enough to come to the emergency room. He denies diaphoresis or shortness of breath associated with the pain. He denies nausea vomiting or lightheadedness. Patient has a known history of frequent PVCs for which she is treated with metoprolol. He had a nuclear perfusion scan in May 2017 which did not show any perfusion abnormalities. He had an echocardiogram done today which shows anterior wall motion abnormalities. There is no echo available for comparison. 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 Other and unspecified hyperlipidemia (Chronic 05/28/12) LDL baseline 167 Surgical History History of heart artery stent (Chronic) Social History Smoking/Tobacco Use Status: Never Alcohol Intake: current Alcohol Intake frequency: a few times a month Alcohol type: beer Drug use: Never Substance use type: does not use Adopted: Yes Household members: spouse Housing: house Number of Children: 2 number of grandchildren: 2 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 What type of physical activity do you participate in: walking Frequency: 3-4 times per week Do you feel safe at home: Yes Do you feel safe in your relationship?: Yes Exam Const General: comfortable and no acute distress [facility] Head: normocephalic and atraumatic Eyes General: appearance normal, both eyes and all related structures Resp Effort & Inspection: normal respiratory effort Auscultation: clear to auscultation bilaterally Cardio Jugular venous pressure: no JVD Palpation: normal PMI Rate: regular rate Rhythm: regular rhythm Heart Sounds: S1 normal and S2 normal (No Murmurs, Rubs or Gallops) GI Palpation: soft Auscultation: normoactive bowel sounds Skin General skin exam: no rashes or lesions noted Extrem General: normal to inspection and no clubbing, cyanosis or edema Psych Appearance: grossly normal Results Last Vital Signs Temp 36.5 C 12/02/18 23:29 Pulse 61 12/03/18 07:46 Resp 16 12/03/18 07:46 BP 138/79 12/03/18 07:46 Pulse Ox 95 12/03/18 06:20 Labs Result diagrams: 12/02/18 20:24 12/03/18 06:15 Labs: Laboratory Results - last 24 hr 12/02/18 12/02/18 12/02/18 20:24 20:24 20:24 WBC 7.64 RBC 4.85 Hgb 14.6 Hct 43.1 MCV 88.9 MCH 30.1 MCHC 33.9 RDW 12.3 Plt Count 212 MPV 9.9 Immature Gran % 0.4 Neutrophils % 55.0 Lymphocytes % 29.2 Monocytes % 8.2 Eosinophils % 6.8 Basophils % 0.4 Absolute Neutrophils 4.20 Absolute Lymphocytes 2.23 Absolute Monocytes 0.63 Absolute Eosinophils 0.52 Absolute Basophils 0.03 PT 10.3 INR 1.0 APTT 25.4 Sodium 140 Potassium 3.2 L Chloride 100 Carbon Dioxide 30.0 Anion Gap 10.0 BUN 27 H Creatinine 1.22 Estimated GFR/1.73 m2 59.43 Glucose 96 Hemoglobin A1c Calcium 8.9 Magnesium 2.1 Total Bilirubin 0.4 AST 11 L ALT 15 L Alkaline Phosphatase 59 Troponin I < 0.05 Total Protein 7.4 Albumin 4.1 Triglycerides Total Cholesterol LDL Cholesterol, Calc HDL Cholesterol 12/02/18 12/03/18 12/03/18 20:24 00:43 06:15 WBC RBC Hgb Hct MCV MCH MCHC RDW Plt Count MPV Immature Gran % Neutrophils % Lymphocytes % Monocytes % Eosinophils % Basophils % Absolute Neutrophils Absolute Lymphocytes Absolute Monocytes Absolute Eosinophils Absolute Basophils PT INR APTT Sodium 141 Potassium 3.2 L 3.6 Chloride 102 Carbon Dioxide 30.7 Anion Gap 8.3 BUN 25 H Creatinine 1.21 Estimated GFR/1.73 m2 60.00 Glucose 121 H Hemoglobin A1c 5.6 Calcium 8.6 Magnesium 2.1 Total Bilirubin AST ALT Alkaline Phosphatase Troponin I < 0.05 Total Protein Albumin Triglycerides 208 H Total Cholesterol 123 LDL Cholesterol, Calc 47 HDL Cholesterol 35 L 12/03/18 06:15 WBC RBC Hgb Hct MCV MCH MCHC RDW Plt Count MPV Immature Gran % Neutrophils % Lymphocytes % Monocytes % Eosinophils % Basophils % Absolute Neutrophils Absolute Lymphocytes Absolute Monocytes Absolute Eosinophils Absolute Basophils PT INR APTT Sodium Potassium Chloride Carbon Dioxide Anion Gap BUN Creatinine Estimated GFR/1.73 m2 Glucose Hemoglobin A1c Calcium Magnesium Total Bilirubin AST ALT Alkaline Phosphatase Troponin I < 0.05 Total Protein Albumin Triglycerides Total Cholesterol LDL Cholesterol, Calc HDL Cholesterol EKG interpretations EKG EKG results cardiology: interpreted by SHAY, sinus rhythm and normal axis PR, pacemaker, normal Myocardial infarction: anterior PR (old age or indeterminate) (Unchanged from prior in 2018)
[2018-12-03] MEDS: Enoxaparin 40 MG/0.4 ML SYR SC (13:36)
--- NOTE | 2018-12-03 14:12 | DSE_ITS ---
Date of service: 12/03/18 Time of Service: 14:12 DS: Diagnosis Discharge Diagnosis (1) Unstable angina: Status: Acute (2) Systolic dysfunction: Status: Acute (3) BPH w urinary obs/LUTS: Status: Chronic (4) Essential hypertension: Status: Chronic (5) Gastroesophageal reflux disease: Status: Chronic (6) Other and unspecified hyperlipidemia: Status: Chronic Discharge Plan Disposition Patient Disposition: [facility] Condition: Fair Discharge Details Chief Complaint: Chest Pain Clinical Impression: Chest pain Reason For Visit: CHEST PAIN Admit Date/Time: 12/02/18 21:56 Admit Provider: Ronnie Alvarez Attending Provider: Ronnie Alvarez Primary Care Provider: Kelvin Hicks ED Provider: Lucio Pratt [facility] Course Hospital Course: Mr Mcdonald is a 68 year old male with PMHx of CAD s/p 2 stents, as well as hypertension, GERD, and BPH, who was observed on [facility] hospitalist service from 12/02/18 until 12/03/18 for chest pain, which initially occured with exertion. The morning of 12/03/18, he had a L-sided chest pain at rest, which resolved after about 10 minutes. While his troponins were negative and EKGs showed no ischemic changes, his echocardiogram does reveal wall motion abnormalities (hypokinesis of the entire anterior wall, basal and mid anterolateral kay). Unfortunately, we have not been able to locate prior echocardiogram results for the patient, but there is a strong suspicion that his chest pain at rest and wall motion abnormalities may represent unstable angina. The patient was initiated on plavix 75 mg daily. He was continued on aspirin and rosuvastatin. As he had received DVT prophylaxis dose of lovenox, we gave the balance of the 1 mg/kg dose of lovenox (a total of 70 mg of SC lovenox given around 1400). The patient was evaluated by Dr Suarez of cardiology, who feels that the patient would benefit from a cardiac catheterization, which is unavailable at [facility]. He was accepted in transfer by Dr Frias of cardiology at [facility], whose assistance is appreciated. The patient is stable for transfer and concents to transfer. The care for patient as well as preparation of his transfer summary on day of transfer took 1 hour. Home Meds and New Rx's Prescriptions: New clopidogrel [Plavix] 75 mg Tablet 75 mg PO DAILY Qty: 0 RF: 0 enoxaparin 60 mg/0.6 mL Syringe 70 mg subcut Q12H Qty: 0 RF: 0 Continued finasteride 5 mg tablet 5 mg PO DAILY Qty: 90 RF: 4 glucosam-chond lg-aknyam-ux ac 1 EACH capsule 1 ea PO BID RF: 0 aspirin 325 MG tablet 325 mg PO DAILY RF: 0 acetaminophen 500 MG tablet 1,500 mg PO BID RF: 0 nitroglycerin [Nitrostat] 0.4 MG tablet, sublingual 0.4 mg Sublingual PRN Qty: 30 RF: 12 pantoprazole [Protonix] 40 mg tablet,delayed release (DR/EC) 40 mg PO DAILY Qty: 90 RF: 3 metoprolol succinate 100 mg tablet extended release 24 hr 100 mg PO DAILY Qty: 90 RF: 3 rosuvastatin [Crestor] 10 mg tablet 10 mg PO DAILY Qty: 90 RF: 3 tamsulosin 0.4 mg capsule 0.4 mg PO BID RF: 0 Discontinued moexipril-hydrochlorothiazide 15-25 mg tablet 1 tab PO DAILY Qty: 90 RF: 3 Discharge Instructions Instructions: Acute Coronary Syndrome (DC), Heart Catheterization (DC) Activity:: Activity as Tolerated Equipment/Supplies:: No Equipment Needed Diet:: NPO Discharge Orders Discharge Orders: Discharge Order (Routine); Ordered 12/03/18 Ordered By: Angelica Austin DS: Summary Status at Discharge Functional status at discharge: independent ambulation Overall status at discharge: patient is not back to baseline Mental Status: mental status grossly normal Speech and Movement: speech and movement normal Mood: congruent mood Affect: normal affect Exam Narrative Exam Narrative: General: very pleasant, mildly anxious middle-aged male, looks comfortable in bed, A&Ox3, speaking with a slight speech impediment HEENT: EOMI, MMM Heart: RRR, no m/r/g Lungs: CTAB GI: abdomen is soft, nontender, nondistended Extremities: no e/c/c BLE's Psych Mental Status: mental status grossly normal Speech and Movement: speech and movement normal Mood: congruent mood Affect: normal affect DS: Data Vitals/I&O Vitals and I&O: Vital Signs Temperature 36.5 C 12/02/18 23:29 Temperature Source Temporal Artery Scan 12/02/18 23:29 Pulse 61 10/09/19 07:46 Pulse Rhythm Regular 12/03/18 08:04 Pulse 56 L 12/03/18 06:32 Respiratory Rate 16 12/03/18 07:46 Respiratory Effort Non-Labored 12/03/18 08:04 Respiratory Depth Normal 12/03/18 08:04 Respiratory Pattern Normal 12/03/18 08:04 Blood Pressure 138/79 12/03/18 07:46 Blood Pressure Mean 81 12/03/18 06:32 Blood Pressure Position Sitting 12/02/18 23:29 Pulse Oximetry 95 12/03/18 06:20 Oxygen Delivery Method Room Air 12/02/18 23:29 Oxygen Flow Rate 0 12/02/18 23:29 Pain Level 2 12/03/18 06:19 Comment points to left side of chest 12/02/18 19:56 Intake & Output 12/02/18 12/03/18 12/03/18 23:59 11:59 23:59 Intake Total 340 / 440 100 / 440 Output Total 900 / 900 Balance -560 / -460 100 / -460 Weight 72.9 kg Intake: Oral 340 / 440 100 / 440 Output: Urine 900 / 900 Other: Urine Color Yellow Urine Appearance Clear Voiding Methods Urinal Data Completed and Pending Completed studies during hospitalization [Text1]: CXR: Normal chest. Echo: Left Ventricle : The left ventricle is normal size. There is normal left ventricular wall thickness. Wall motion abnormalities: The entire anterior wall is hypokinetic The basal and mid anterolateral kay are hypokinetic. The remaining kay are within normal limits. Right Ventricle : The right ventricle is normal size. The right ventricular systolic function is normal. Atria : The left atrium size is normal. The right atrium size is normal. Mitral Valve : The mitral valve is normal in structure. There is trace mitral valve regurgitation Aortic Valve : The aortic valve is normal in structure. Mild aortic regurgitation is present Tricuspid Valve : The tricuspid valve is normal in structure. There is mild tricuspid regurgitation. TR V-max =2.2 m/s This corresponds to an RVSP 25-30 mmHg Pulmonic Valve : The pulmonary valve is normal in structure. Trace pulmonic regurgitation. Great Vessels : The aortic root is normal in size. The aortic root is normal in size. The IVC is dilated with normal collapse Pericardium : There is no pericardial effusion. There is no echocardiogram available for comparison Labs on day of discharge: Labs from last 24 hours 12/03/18 12/03/18 12/03/18 06:15 06:15 00:43 WBC RBC Hgb Hct MCV MCH MCHC RDW Plt Count MPV Immature Gran % Neutrophils % Lymphocytes % Monocytes % Eosinophils % Basophils % Absolute Neutrophils Absolute Lymphocytes Absolute Monocytes Absolute Eosinophils Absolute Basophils PT INR APTT Sodium 141 Potassium 3.6 3.2 L Chloride 102 Carbon Dioxide 30.7 Anion Gap 8.3 BUN 25 H Creatinine 1.21 Estimated GFR/1.73 m2 60.00 Glucose 121 H Hemoglobin A1c Calcium 8.6 Magnesium 2.1 Total Bilirubin AST ALT Alkaline Phosphatase Troponin I < 0.05 < 0.05 Total Protein Albumin Triglycerides 208 H Total Cholesterol 123 LDL Cholesterol, Calc 47 HDL Cholesterol 35 L 12/02/18 12/02/18 12/02/18 20:24 20:24 20:24 WBC 7.64 RBC 4.85 Hgb 14.6 Hct 43.1 MCV 88.9 MCH 30.1 MCHC 33.9 RDW 12.3 Plt Count 212 MPV 9.9 Immature Gran % 0.4 Neutrophils % 55.0 Lymphocytes % 29.2 Monocytes % 8.2 Eosinophils % 6.8 Basophils % 0.4 Absolute Neutrophils 4.20 Absolute Lymphocytes 2.23 Absolute Monocytes 0.63 Absolute Eosinophils 0.52 Absolute Basophils 0.03 PT 10.3 INR 1.0 APTT 25.4 Sodium Potassium Chloride Carbon Dioxide Anion Gap BUN Creatinine Estimated GFR/1.73 m2 Glucose Hemoglobin A1c 5.6 Calcium Magnesium Total Bilirubin AST ALT Alkaline Phosphatase Troponin I Total Protein Albumin Triglycerides Total Cholesterol LDL Cholesterol, Calc HDL Cholesterol 12/02/18 20:24 WBC RBC Hgb Hct MCV MCH MCHC RDW Plt Count MPV Immature Gran % Neutrophils % Lymphocytes % Monocytes % Eosinophils % Basophils % Absolute Neutrophils Absolute Lymphocytes Absolute Monocytes Absolute Eosinophils Absolute Basophils PT INR APTT Sodium 140 Potassium 3.2 L Chloride 100 Carbon Dioxide 30.0 Anion Gap 10.0 BUN 27 H Creatinine 1.22 Estimated GFR/1.73 m2 59.43 Glucose 96 Hemoglobin A1c Calcium 8.9 Magnesium 2.1 Total Bilirubin 0.4 AST 11 L ALT 15 L Alkaline Phosphatase 59 Troponin I < 0.05 Total Protein 7.4 Albumin 4.1 Triglycerides Total Cholesterol LDL Cholesterol, Calc HDL Cholesterol [facility] Medical History 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) Cor athrscl-uns vessel (Chronic 06/09/07) 2 CHIQUITA stents RCA 05/2007; and one RCA 03/2010; [place] Essential hypertension (Chronic 11/28/12) Gastroesophageal reflux disease (Chronic 02/25/03) EGD Dr Rapp ([facility]) 2003; fpc PPI Other and unspecified hyperlipidemia (Chronic 05/28/12) LDL baseline 167 Surgical History History of heart artery stent (Chronic) Social History Smoking/Tobacco Use Status: Never Alcohol Intake: current Alcohol Intake frequency: a few times a month Alcohol type: beer Drug use: Never Substance use type: does not use Adopted: Yes Household members: spouse Housing: house Number of Children: 2 number of grandchildren: 2 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
[2018-12-03] MEDS: Clopidogrel 75 MG TAB PO (14:19)
[2018-12-03] MEDS: Enoxaparin 30 MG/0.3 ML SYR SC (14:19)
[2018-12-03] MEDS: Acetaminophen 325 MG TAB 650 MG PO (14:20)
== END 2018-12-03 16:30 | disposition short-term general hospital (02) | DRG 303 ==
LOC: ER 22:42 → ICU 23:16
PROVIDERS: Admitting Provider General Practice; Emergency Provider Emergency Medicine; PCP Family Medicine; Visit Provider Internal Medicine
DX: I25.110 Atherosclerotic heart disease of native coronary artery with unstable angina pectoris (principal); N13.8 Other obstructive and reflux uropathy; I08.2 Rheumatic disorders of both aortic and tricuspid valves; I10 Essential (primary) hypertension; Z95.5 Presence of coronary angioplasty implant and graft; K21.9 Gastro-esophageal reflux disease without esophagitis; N40.1 Benign prostatic hyperplasia with lower urinary tract symptoms; E78.5 Hyperlipidemia, unspecified
CPT/HCPCS: 36415; 80048; 80053; 80061; 93005; 99222; 99225; 99239; 99255; 99285; J1650; 71046; 83036; 83735; 84132; 84484; 85025; 85610; 85730; 93010; 93306; 99218; G0378; J3480

== ENCOUNTER 2018-12-12 08:51 | Outpatient (RCR) | payer OTHER, SELFPAY | END 2018-12-25 23:59 | disposition home or self-care (01) | LOC: CR 08:51 | PROVIDERS: PCP Family Medicine; Visit Provider Family Medicine | DX: I25.110 Atherosclerotic heart disease of native coronary artery with unstable angina pectoris (principal) ==

== ENCOUNTER 2018-12-26 05:10 | Outpatient (RCR) | payer OTHER, SELFPAY | END 2019-01-24 23:59 | disposition home or self-care (01) | LOC: CR 05:10 | PROVIDERS: PCP Family Medicine; Visit Provider Family Medicine | DX: Z51.89 Encounter for other specified aftercare (principal) ==

== ENCOUNTER 2019-01-16 08:48 | Outpatient (CLI) | payer OTHER, SELFPAY | END 2019-01-16 09:08 | PROVIDERS: PCP Family Medicine; Visit Provider Internal Medicine Cardiovascular Disease | DX: I25.10 Atherosclerotic heart disease of native coronary artery without angina pectoris (principal); I10 Essential (primary) hypertension; E78.5 Hyperlipidemia, unspecified | CPT/HCPCS: 93005; 93010 ==

== ENCOUNTER 2019-01-25 05:06 | Outpatient (RCR) | payer OTHER, SELFPAY | END 2019-02-24 23:59 | disposition home or self-care (01) | LOC: CR 05:06 | PROVIDERS: PCP Family Medicine; Visit Provider Family Medicine | DX: Z51.89 Encounter for other specified aftercare (principal) ==

== ENCOUNTER 2019-02-02 12:22 | Outpatient (CLI) | payer OTHER, SELFPAY ==
[2019-02-02 14:29] LABS: Anion Gap 9.3 mmol/L (3-11); BUN 21 mg/dL (7-18); CO2 27.7 mmol/L (21.0-32.0); CREATININE 1.08 mg/dL (0.70-1.30); Calcium 9.1 mg/dL (8.5-10.1); Chloride 106 mmol/L (98-107); Glucose 100 mg/dL (74-106); Potassium 4.4 mmol/L (3.5-5.1); Sodium 143 mmol/L (136-145)
== END 2019-02-02 12:42 ==
PROVIDERS: PCP Family Medicine; Visit Provider Internal Medicine Cardiovascular Disease
DX: I10 Essential (primary) hypertension (principal)
CPT/HCPCS: 36415; 80048

== ENCOUNTER 2019-07-10 02:26 | Outpatient (CLI) | payer OTHER, SELFPAY ==
[2019-07-10 10:49] LABS: ALT 21 U/L (16-63); AST 13 U/L (15-37); Albumin 4.3 g/dL (3.4-5.0); Alkaline Phosphatase 63 U/L (46-116); Anion Gap 8.4 mmol/L (3-11); BUN 23 mg/dL (7-18); Bilirubin, Total 0.6 mg/dL (0.2-1.0); CO2 28.6 mmol/L (21.0-32.0); CREATININE 1.26 mg/dL (0.70-1.30); Calculated LDL 74 mg/dL (<100); Chloride 103 mmol/L (98-107); Cholesterol 129 mg/dL (<200); Estimated GFR 57.08 (mL/min/1.73m2); Glucose 95 mg/dL (74-106); HDL Cholesterol 40 mg/dL (40-60); Potassium 4.7 mmol/L (3.5-5.1); Sodium 140 mmol/L (136-145); Total Protein 7.3 g/dL (6.4-8.2); Triglyceride 78 mg/dL (<150)
[2019-07-13 10:53] LABS: PSA, Screening 1.2 ng/mL (0.0-4.5)
== END 2019-07-10 02:46 ==
PROVIDERS: PCP Family Medicine; Visit Provider Urology
DX: E78.5 Hyperlipidemia, unspecified (principal); N13.8 Other obstructive and reflux uropathy; N40.1 Benign prostatic hyperplasia with lower urinary tract symptoms; Z12.5 Encounter for screening for malignant neoplasm of prostate
CPT/HCPCS: 36415; 80053; 80061; 84153

== ENCOUNTER 2019-07-29 02:09 | Outpatient (CLI) | payer OTHER, SELFPAY ==
--- NOTE | 2019-07-29 07:58 | DI.RAD_ITS ---
EXAM: XR CERVICAL SPINE COMP 4-5V CLINICAL HISTORY: Worsening chronic neck pain,m54.2,cervicalgia TECHNIQUE: COMPARISON: No exams were available for comparison FINDINGS: Five views were obtained. There are very prominent hypertrophic changes facet joints throughout the cervical region with endplate hypertrophy also present particularly C6-7. Mild disc space narrowing C6-7 noted. Otherwise intervertebral disc spaces appear fairly well maintained. There appears to be narrowing of the neural foramen on the right at C3-4. Neural foraminal narrowing may also be presen t on the right at C6-7. On the left, there is probable neural foraminal narrowing at C 2 3 and C6-7 and possibly also at C3-4. No erosive or destructive lesion seen. Prevertebral soft tissues appear intact. Incidental posterio r longitudinal ligament ossification noted. IMPRESSION: Degenerative changes of the cervical spine as described above. Possible bilateral neural foraminal n arrowing, please see above discussion.
== END 2019-07-29 02:29 ==
PROVIDERS: PCP Family Medicine; Visit Provider Family Medicine
DX: M54.2 Cervicalgia (principal); M50.223 Other cervical disc displacement at C6-C7 level; M47.812 Spondylosis without myelopathy or radiculopathy, cervical region
CPT/HCPCS: 72050

== ENCOUNTER 2020-06-29 04:44 | Outpatient (CLI) | payer OTHER, SELFPAY ==
[2020-06-29 16:54] LABS: PSA, Diagnostic 1.9 ng/mL (0.0-4.5)
== END 2020-06-29 04:45 | disposition home or self-care (01) ==
LOC: LBO 04:44
PROVIDERS: PCP Family Medicine; Visit Provider Urology
DX: N41.1 Chronic prostatitis (principal)
CPT/HCPCS: 84153

== ENCOUNTER 2020-10-13 15:07 | Outpatient (REF) | payer OTHER, SELFPAY ==
[2020-10-13 16:53] LABS: Bilirubin Negative (Negative); Blood Small (Negative); Clarity Sl Cloudy (Clear); Glucose Negative (Negative); Ketones Negative (Negative); Leukocyte Esterase Small (Negative); Nitrite Negative (Negative); Specific Gravity >= 1.030 (1.005-1.025); Urobilinogen 0.2 EU/dL (Up TO 0.2)
[2020-10-13 16:56] LABS: C & S Indicated? C&S Done As Ordered
[2020-10-13 17:33] LABS: Bacteria Many HPF (Negative); Crystals Negative HPF (Negative); Epithelial Cells Few HPF (Negative); Mucus Negative (Negative); Other Cells Few Transitional (Negative); RBC Negative HPF (0-2); WBC >50 HPF (0-5)
== END 2020-10-13 15:08 | disposition home or self-care (01) ==
LOC: LBN 15:07
PROVIDERS: PCP Family Medicine; Visit Provider Nurse Practitioner Gerontology
DX: R30.0 Dysuria (principal)
CPT/HCPCS: 87077; 81003; 81015; 87086; 87186

== ENCOUNTER 2021-01-30 03:13 | Outpatient (CLI) | payer OTHER, SELFPAY ==
[2021-01-30 08:32] LABS: Anion Gap 8.3 mmol/L (3-11); BUN 25 mg/dL (7-18); CO2 29.7 mmol/L (21.0-32.0); CREATININE 1.3 mg/dL (0.70-1.30); Calcium 9.4 mg/dL (8.5-10.1); Chloride 102 mmol/L (98-107); Glucose 95 mg/dL (74-106); Potassium 4.7 mmol/L (3.5-5.1); Sodium 140 mmol/L (136-145)
== END 2021-01-30 03:14 | disposition home or self-care (01) ==
LOC: LBO 03:14
PROVIDERS: PCP Family Medicine; Visit Provider Family Medicine
DX: I10 Essential (primary) hypertension (principal)
CPT/HCPCS: 36415; 80048

== ENCOUNTER 2021-07-07 20:13 | Outpatient (REF) | payer MEDICARE, SELFPAY ==
[2021-07-07 22:50] LABS: PSA, Diagnostic 2.1 ng/mL (<=4.5)
== END 2021-07-07 20:14 | disposition home or self-care (01) ==
LOC: NCHCN 20:13
PROVIDERS: PCP Family Medicine; Visit Provider Urology
DX: N40.1 Benign prostatic hyperplasia with lower urinary tract symptoms; N41.1 Chronic prostatitis
CPT/HCPCS: 84153

== ENCOUNTER → 2021-09-12 11:39 | Outpatient (BNVA) | payer MEDICARE, OTHER, SELFPAY | PROVIDERS: PCP Family Medicine; Referring Provider Family Medicine; Visit Provider Urology | DX: R39.89 Other symptoms and signs involving the genitourinary system (principal); N40.1 Benign prostatic hyperplasia with lower urinary tract symptoms; N13.8 Other obstructive and reflux uropathy; N41.1 Chronic prostatitis | CPT/HCPCS: 51798; 81003; 99213 ==

== ENCOUNTER → 2021-09-18 14:10 | Outpatient (BNVA) | payer MEDICARE, OTHER, SELFPAY | PROVIDERS: PCP Family Medicine; Referring Provider Family Medicine; Visit Provider Urology | DX: N40.1 Benign prostatic hyperplasia with lower urinary tract symptoms (principal); N41.1 Chronic prostatitis; N13.8 Other obstructive and reflux uropathy | CPT/HCPCS: 51798; 81003; 99214 ==

== ENCOUNTER → 2022-01-01 08:21 | Outpatient (BNVA) | payer MEDICARE, OTHER, SELFPAY | PROVIDERS: PCP Family Medicine; Referring Provider Family Medicine; Visit Provider Urology | DX: R39.89 Other symptoms and signs involving the genitourinary system (principal); N41.1 Chronic prostatitis | CPT/HCPCS: 51798; 99213 ==

== ENCOUNTER 2022-01-24 03:16 | Outpatient (CLI) | payer MEDICARE, OTHER, SELFPAY ==
[2022-01-24 08:50] LABS: Anion Gap 4.7 mmol/L (3-11); BUN 22 mg/dL (7-18); CO2 30.3 mmol/L (21.0-32.0); CREATININE 1.3 mg/dL (0.70-1.30); Calcium 9.2 mg/dL (8.5-10.1); Chloride 103 mmol/L (98-107); Estimated GFR 59.47 (mL/min/1.73m2); Glucose 99 mg/dL (74-106); Potassium 4.1 mmol/L (3.5-5.1); Sodium 138 mmol/L (136-145)
== END 2022-01-24 03:17 | disposition home or self-care (01) ==
LOC: LBO 03:21
PROVIDERS: PCP Family Medicine; Visit Provider Family Medicine
DX: N18.9 Chronic kidney disease, unspecified (principal); I10 Essential (primary) hypertension
CPT/HCPCS: 36415; 80048

== ENCOUNTER 2022-02-22 10:05 | Outpatient (CLI) | payer MEDICARE, OTHER, SELFPAY ==
--- NOTE | 2022-02-22 10:00 | RT.EKG_ITS ---
APPROVED REPORT Exam: Resting ECG Reason for Exam: CAD Patient Location: O HR:77 bpm ECG Measurements Heart Rate 77 AXIS IL 144 P 27 QRSd 86 QRS -9 QT 373 T 60 QTc 423 Conclusion Sinus arrhythmia...V-rate 70- 82, variation>10% Multiple ventricular premature complexes... Poor R wave progression
== END 2022-02-22 10:06 | disposition home or self-care (01) ==
LOC: DI.CARD 10:06
PROVIDERS: PCP Family Medicine; Visit Provider Internal Medicine Cardiovascular Disease
DX: I25.10 Atherosclerotic heart disease of native coronary artery without angina pectoris (principal); I10 Essential (primary) hypertension; I49.8 Other specified cardiac arrhythmias; I49.3 Ventricular premature depolarization
CPT/HCPCS: 93010

== ENCOUNTER → 2022-02-22 10:32 | Outpatient (BNVA) | payer MEDICARE, OTHER, SELFPAY | PROVIDERS: PCP Family Medicine; Referring Provider Family Medicine; Visit Provider Internal Medicine Cardiovascular Disease | DX: I25.10 Atherosclerotic heart disease of native coronary artery without angina pectoris (principal); I10 Essential (primary) hypertension; E78.5 Hyperlipidemia, unspecified | CPT/HCPCS: 93005; 99214; 99213 ==

== ENCOUNTER 2022-03-06 09:20 | Outpatient (REF) | payer MEDICARE, OTHER, SELFPAY | END 2022-03-06 09:21 | disposition home or self-care (01) | LOC: LBN 09:20 | PROVIDERS: PCP Family Medicine; Visit Provider Urology | DX: N40.0 Benign prostatic hyperplasia without lower urinary tract symptoms (principal) | CPT/HCPCS: 87086 ==

== ENCOUNTER → 2022-03-30 08:04 | Outpatient (BNVA) | payer MEDICARE, OTHER, SELFPAY | PROVIDERS: PCP Family Medicine; Referring Provider Family Medicine; Visit Provider Urology | DX: N40.1 Benign prostatic hyperplasia with lower urinary tract symptoms (principal); N13.8 Other obstructive and reflux uropathy; N41.1 Chronic prostatitis; N18.9 Chronic kidney disease, unspecified; N39.0 Urinary tract infection, site not specified; R30.0 Dysuria | CPT/HCPCS: 51798; 76857; 81003; 99214 ==

== ENCOUNTER 2022-03-30 10:24 | Outpatient (REF) | payer MEDICARE, OTHER, SELFPAY | END 2022-03-30 10:25 | disposition home or self-care (01) | LOC: LBN 10:24 | PROVIDERS: PCP Family Medicine; Visit Provider Urology | DX: N39.0 Urinary tract infection, site not specified (principal) | CPT/HCPCS: 87086 ==

== ENCOUNTER 2022-04-10 16:42 | Outpatient (REF) | payer MEDICARE, OTHER, SELFPAY ==
[2022-04-10 15:44] LABS: Abs Immature Grans 0.06 10^3/uL (0.0-0.06); Absolute Basophil Count 0.04 10^3/uL (0.0-0.2); Absolute Monocyte Count 0.74 10^3/uL (0.1-0.8); Absolute Neutrophil Count 9.63 10^3/uL (1.2-6.7); Basophils % 0.3; Eosinophils % 1.5; HCT 44.8 % (40.0-50.0); HGB 15.1 g/dL (13.5-17.5); Immature Grans % 0.5; MCH 30.4 pg (27.0-33.0); MCHC 33.7 % (32.0-36.0); MCV 90 fL (80-95); MPV 9.4 fL (8.0-11.0); Neutrophils % 77.7; Platelet Count 293 10^3/uL (130-400); RBC 4.97 10^6/uL (4.36-5.78); RDW 11.8 % (11.8-14.1); RDW-SD 38.7 fL; WBC 12.39 10^3/uL (4.4-10.8)
[2022-04-10 15:51] LABS: ALT 15 U/L (16-63); AST 14 U/L (15-37); Albumin 3.9 g/dL (3.4-5.0); Alkaline Phosphatase 77 U/L (46-116); Anion Gap 5.9 mmol/L (3-11); BUN 21 mg/dL (7-18); Bilirubin, Total 0.4 mg/dL (0.2-1.0); CO2 30.1 mmol/L (21.0-32.0); CREATININE 1.2 mg/dL (0.70-1.30); Calcium 9.2 mg/dL (8.5-10.1); Chloride 101 mmol/L (98-107); Estimated GFR 65.06 (mL/min/1.73m2); Glucose 102 mg/dL (74-106); Potassium 4.2 mmol/L (3.5-5.1); Sodium 137 mmol/L (136-145); Total Protein 7.7 g/dL (6.4-8.2)
[2022-04-10 15:55] LABS: Absolute Eosinophil Count 0.19 10^3/uL (0.0-0.7); Absolute Lymphocyte Count 1.73 10^3/uL (1.2-3.4)
[2022-04-10 17:33] LABS: Bilirubin Negative (Negative); Blood Large (Negative); Clarity Cloudy (Clear); Glucose Negative (Negative); Ketones Negative (Negative); Leukocyte Esterase Moderate (Negative); Nitrite Negative (Negative); Specific Gravity 1.025 (1.005-1.025); Urobilinogen 0.2 EU/dL (Up TO 0.2); pH 5.5 (5-8)
[2022-04-10 17:44] LABS: Bacteria Moderate HPF (Negative); C & S Indicated? Yes; Casts Negative LPF (Negative); Crystals Negative HPF (Negative); Epithelial Cells Rare HPF (Negative); Mucus Moderate (Negative); RBC >50 HPF (0-2)
== END 2022-04-10 16:43 | disposition home or self-care (01) ==
LOC: LBN 16:42
PROVIDERS: PCP Family Medicine; Visit Provider Urology
DX: N41.1 Chronic prostatitis (principal); N18.9 Chronic kidney disease, unspecified; R82.998 Other abnormal findings in urine
CPT/HCPCS: 80053; 81003; 81015; 85025; 87086

== ENCOUNTER 2022-06-29 01:41 | Outpatient (CLI) | payer MEDICARE, OTHER, SELFPAY ==
[2022-06-29 21:10] LABS: PSA, Diagnostic 0.7 ng/mL (<=6.5)
== END 2022-06-29 01:42 | disposition home or self-care (01) ==
LOC: LBO 01:44
PROVIDERS: PCP Family Medicine; Visit Provider Urology
DX: N40.1 Benign prostatic hyperplasia with lower urinary tract symptoms (principal); R30.0 Dysuria; N41.1 Chronic prostatitis; N13.8 Other obstructive and reflux uropathy
CPT/HCPCS: 36415; 84153

== ENCOUNTER 2023-01-23 03:05 | Outpatient (CLI) | payer MEDICARE, OTHER, SELFPAY ==
[2023-01-23 08:16] LABS: ALT 20 U/L (16-63); AST 13 U/L (15-37); Albumin 4.1 g/dL (3.4-5.0); Alkaline Phosphatase 68 U/L (46-116); Anion Gap 6.2 mmol/L (3-11); BUN 26 mg/dL (7-18); Bilirubin, Total 0.5 mg/dL (0.2-1.0); CO2 30.8 mmol/L (21.0-32.0); CREATININE 1.2 mg/dL (0.70-1.30); Calcium 9.1 mg/dL (8.5-10.1); Chloride 102 mmol/L (98-107); Estimated GFR 65.06 (mL/min/1.73m2); Glucose 92 mg/dL (74-106); Potassium 4.1 mmol/L (3.5-5.1); Sodium 139 mmol/L (136-145); Total Protein 7.7 g/dL (6.4-8.2)
== END 2023-01-23 03:06 | disposition home or self-care (01) ==
LOC: LBO 03:05
PROVIDERS: PCP Family Medicine; Referring Provider Family Medicine; Visit Provider Family Medicine
DX: I10 Essential (primary) hypertension (principal)
CPT/HCPCS: 36415; 80053

== ENCOUNTER → 2023-02-21 10:30 | Outpatient (BNVA) | payer MEDICARE, OTHER, SELFPAY | PROVIDERS: PCP Family Medicine; Visit Provider Internal Medicine Interventional Cardiology | DX: E78.5 Hyperlipidemia, unspecified (principal); I25.10 Atherosclerotic heart disease of native coronary artery without angina pectoris; I10 Essential (primary) hypertension | CPT/HCPCS: 99213 ==

== ENCOUNTER → 2023-08-22 00:15 | Outpatient (CLI) | payer MEDICARE, OTHER, SELFPAY ==
--- NOTE | 2023-08-22 07:00 | DI.NM_ITS ---
APPROVED REPORT Exam: Pharmacologic Patient Location: Out-Patient Room/Bed: Stress Nurse: Elder Fair RN and Flaca Aquino RN Ordering Provider:KULDEEP CHAVEZ, Contact Number: [phone] BMI: 24.10 Baseline Rhythm: Sinus Rhythm. Comment: Frequent PVC's. Indications: Known CAD; Recent chest tightness while exerting; Coronary Atherosclerosis - Unknown ves jeanie. Medical History Medical History: CAD; CKD; Hyperlipidemia; Hypertension; EF 50-55 percent; Anxiety; GERD. Cardiac Medications: Amlodipine; Aspirin; Lisinopril; Metoprolol; Nitroglycerin; Pantoprazole; Rosuva statin. Allergies: Atorvastatin; Iohexol. Cardiac Risk Factors: Hyperlipidemia; Hypertension; CVD. Previous Cardiac Procedures: PCI with Stenting x6. Pretest Chest Pain Characteristics: None. Exercise History: Indeterminate. Physical Disabilities: None. Lung Sounds: Clear bilaterally throughout, anterior and posterior. Heart Sounds: S1 and S2 auscultated. Stress Test Details Test: Pharmacologic stress was paired with low level exercise. Reason for pharmacologic stress test: Pt. took their metoprolol and would be unable to meet their t arget heart rate.. Nuclear Acquisition: Rest Tc-99m/Stress Tc-99m 1 day Rest Isotope: Tc-99m Sestamibi. Dose: 10.0 Date: 08/22/2023 Injection Time: 0900 Stress Isotope: Tc-99m Sestamibi. Dose: 30.0 Date: 08/22/2023 Injection Time: 1020 HR Resting HR Supine: 61 bpm Max Heart Rate (APMHR): 149.517542 bpm Resting HR Standin bpm Target HR (85% APMHR): 126.704598 bpm Max HR Achieved: 110 bpm % of APMHR: 73.83 Recovery HR: 81 bpm HR response to stress: Normal HR response to stress. Comment: Frequent PVC's. BP Resting BP Supine: 128/86 mmHg Resting BP Standin/86 mmHg Max BP: 140/80 mmHg Recovery BP: 112/68 mmHg BP response to stress: Normal blood pressure response to stress. ECG Resting ECG: Sinus Rhythm. Ectopy: Frequent PVC's. Stress ECG: Sinus Tachycardia. ST Change: Nondiagnostic low heart rate. Arrhythmia: Frequent PVC's. Recovery ECG: Sinus Rhythm. Recovery ST Change: Nondiagnostic low heart rate Recovery Arrhythmia: Frequent PVC's. Clinical Stress Symptoms: Pt. states he felt flushed and had a headache. Angina Score: None Rate Pressure Product: [id number] Stress ECG Conclusion 1. Resting EKG showed poor R wave progression, nondiagnostic ST-T abnormalities 2. Testing was performed using low-level exercise along with pharmacologic stress with regadenoson 3. Peak heart rate achieved was 74% of maximal predicted for age 4. The electrocardiographic portion of the test was nondiagnostic 5. PVCs were noted 6. See MPI report Stress Test Summary STAGE HR BP SpO2 Symptoms NOTES Supine 61 128/86 98 Standing 71 124/86 1 min post Lexiscan injection 94 140/80 98 Pt. states that he feels flushed. 3 min post Lexiscan injection 82 134/82 Pt. states that he has a headache. 6 min post Lexiscan injection 81 112/68 95 Pt. states that he no longer feels flushed, but does still have a headache. Pt. encouraged to drink some coffee and have a snack to help relieve his headache. MPI Conclusion Myocardial perfusion is normal. There is no ischemia or evidence of prior infarction Ejection fraction is 37%, moderate global hypokinesis Radiologist Interpretation Radiologist Interpretation by: Lucio Betancourt MD Interpretation Date/Time: 08/22/2023 17:01:00
[2023-08-22] MEDS: Regadenoson 0.4 MG/5 ML SYR IVP (10:19)
== END ==
PROVIDERS: PCP Family Medicine; Visit Provider Family Medicine
DX: I25.10 Atherosclerotic heart disease of native coronary artery without angina pectoris (principal); R07.89 Other chest pain
CPT/HCPCS: 78452; 93016; 93018; 93017; J2785

== ENCOUNTER → 2023-12-31 09:46 | Outpatient (BNVA) | payer MEDICARE, OTHER, SELFPAY | PROVIDERS: PCP Family Medicine; Referring Provider Family Medicine; Visit Provider Urology | DX: N41.1 Chronic prostatitis (principal); R39.14 Feeling of incomplete bladder emptying | CPT/HCPCS: 51798; 99213 ==

== ENCOUNTER 2024-02-03 02:22 | Outpatient (CLI) | payer MEDICARE, OTHER, SELFPAY ==
[2024-02-03 07:30] LABS: ALT 19 U/L (16-63); AST 16 U/L (15-37); Albumin 4.2 g/dL (3.4-5.0); Alkaline Phosphatase 66 U/L (46-116); Anion Gap 7.9 mmol/L (3-11); BUN 22 mg/dL (7-18); Bilirubin, Total 0.51 mg/dL (0.2-1.0); CO2 29.1 mmol/L (21.0-32.0); CREATININE 1.3 mg/dL (0.70-1.30); Calcium 9.2 mg/dL (8.5-10.1); Calculated LDL 84 mg/dL (<100); Chloride 107 mmol/L (98-107); Cholesterol 148 mg/dL (<200); Estimated GFR 58.73 (mL/min/1.73m2); Glucose 99 mg/dL (74-106); HDL Cholesterol 51 mg/dL (40-60); Potassium 4.1 mmol/L (3.5-5.1); Sodium 144 mmol/L (136-145); Total Protein 7.6 g/dL (6.4-8.2); Triglyceride 69 mg/dL (<150)
== END 2024-02-03 02:23 | disposition home or self-care (01) ==
PROVIDERS: PCP Family Medicine; Referring Provider Family Medicine; Visit Provider Family Medicine
DX: N18.9 Chronic kidney disease, unspecified (principal); I25.10 Atherosclerotic heart disease of native coronary artery without angina pectoris
CPT/HCPCS: 36415; 80053; 80061

== ENCOUNTER 2024-02-25 09:43 | Outpatient (CLI) | payer MEDICARE, OTHER, SELFPAY ==
--- NOTE | 2024-02-25 09:30 | RT.EKG_ITS ---
APPROVED REPORT Exam: Resting ECG Reason for Exam: CAD Patient Location: O HR:100 bpm ECG Measurements Heart Rate 100 AXIS MD 181 P 86 QRSd 91 QRS -8 QT 369 T 69 QTc 476 Conclusion Sinus tachycardia...rate> 99 Ventricular bigeminy...bigeminy string>4 w/ V complexes Possible anteroseptal infarct, old...Q >40mS, V1-V2
== END 2024-02-25 09:44 | disposition home or self-care (01) ==
LOC: DI.CARD 09:44
PROVIDERS: PCP Family Medicine; Visit Provider Internal Medicine Cardiovascular Disease
DX: I25.10 Atherosclerotic heart disease of native coronary artery without angina pectoris (principal)
CPT/HCPCS: 93010

== ENCOUNTER → 2024-02-25 09:44 | Outpatient (BNVA) | payer MEDICARE, OTHER, SELFPAY | PROVIDERS: PCP Family Medicine; Visit Provider Internal Medicine Cardiovascular Disease | DX: I47.11 Inappropriate sinus tachycardia, so stated (principal); I25.10 Atherosclerotic heart disease of native coronary artery without angina pectoris | CPT/HCPCS: 93005; 99214 ==

== ENCOUNTER 2024-03-05 03:44 | Outpatient (CLI) | payer MEDICARE, OTHER, SELFPAY ==
--- NOTE | 2024-03-05 12:00 | DI.US_ITS ---
APPROVED REPORT EXAM: Comprehensive 2D, Doppler, and color-flow Echocardiogram Patient Location: Out-Patient Choral Teacher: Laura Rodriguez RDCS (AE) Indications: Check LV function, Atherosclerotic heart disease Other Information Study Quality: Fair. Technically limited study due to body habitus. Conclusion Normal left ventricular wall thickness and chamber size. Ejection fraction is 40%. There is global hypokinesis Right ventricle is normal in size but mildly hypocontractile Both atria are normal in size There are no structural valvular abnormalities There is mild mitral and aortic regurgitation Wall motion Left Ventricle The left ventricle is normal size. Left ventricular systolic function is moderately decreased. There is normal left ventricular wall thickness. There is global hypokinesis of the left ventricle. There i s no ventricular septal defect visualized. LVEF is 40%. Right Ventricle The right ventricle is normal size. Right ventricle is mildly hypokinetic. Atria The left atrium size is normal. The right atrium size is normal. The interatrial septum is intact wit h no evidence for an atrial septal defect. Aortic Valve The aortic valve is normal in structure. Aortic valve is trileaflet. There is no aortic valvular sten osis. Mild aortic regurgitation. Mitral Valve The mitral valve is normal in structure. No evidence of mitral valve stenosis. Mild mitral regurgita tion. Tricuspid Valve The tricuspid valve is normal in structure. There is no tricuspid valve stenosis. Trace tricuspid reg urgitation. Pulmonic Valve The pulmonary valve is normal in structure. There is no pulmonic valvular stenosis. Trace pulmonic re gurgitation. Great Vessels The aortic root is normal in size. The ascending aorta is normal in size. The IVC was not clearly vis ualized. Technically limited subcostal imaging. Pericardium Technically l 2D Dimensions IVSD d PLAX 0.81 cm M: 0.6-1.2 Ao Root d 3.62 cm M: 3.1 - 3.7 LVPW d PLAX 0.81 cm M: 0.6 - 1.2 Ao Asc Diam d 3.35 cm M: 2.6 - 3.4 LVID d PLAX 5.52 cm M: 4.2 - 5.8 LVDs 4.43 cm M: 2.5 - 4.0 LV EF Teichholz 40.1 % FS 19.76 % LV EDV (Teich) 148.5 mL LV ESV (Teich) 89.0 mL M-Mode TAPSE 1.82 cm (M/F) >1.7 Auto EF LV EDV A4C 128.9 mL LV EDV A2C 114.5 mL LV EDV BP 120.6 mL LV ESV A4C 77.9 mL LV ESV A2C 69.2 mL LV ESV BP 74.7 mL LVEF(%) A4C 39.6 % LVEF(%) A2C 39.6 % LVEF(%) BP 38.0 % LV SV A4C 51.0 ml LV SV A2C 45.4 ml LV SV BP 45.9 ml LV CO A4C 3.1 L/min LV CO A2C 2.8 L/min LV CO BP 3.0 L/min HR A4C 61.65 BPM HR A2C 62.83 BPM LV EDV Index (BP) LA Volume LA Length A4C 5.5 cm LA Length A2C 5.2 cm LA Area A4C s 19.79 cm2 LA Area A2C s 17.43 cm2 LA Vol A4C A-L 60.03 mL LA Vol A2C A-L 49.60 mL LA Vol Biplane A-L 56.3 mL LA Vol/BSA A4C A-L LA Vol/BSA A2C A-L LA Vol/BSA BP A-L 29.2 mL/m2 LA Vol A4C MOD 56.5 mL LA Vol A2C MOD 45.4 mL LA Vol BP MOD 52.1 mL RA Volume RA Area A4C 14.6 cm2 RA ESV A4C (A-L) 40.4mL RA Vol/BSA A4C A-L RA Length A4C 4.5 cm RA ESV A4C (MOD) 37.7mL LV Diastology MV E' medial 0.037 (>0.07 m/s) MV E Vmax 0.55 (0.4-1.3 m/s) MV E/E' MED 14.74 (<14) MV A Vmax 0.70 (0.4-1.3 m/s) MV E' lateral 0.054 (>0.1 m/s) E/A Ratio 0.8 MV E/E' LAT 10.21 (<14) MV E' Average 0.046 m/s MV E/E'(average) 12.07 Aortic Valve AoV Vmax 1.06 m/s LVOT Vmax 0.71 m/s AoV Peak Grad 34.4 mmHg LVOT Peak Grad 2.0 mmHg AoV Area (Vmax) 2.14 cm2 LVOT VTI 0.149 m AoV VTI 0.210 m LVOT Mean Grad 1.0 mmHg AoV Mean Boogie. 0.79 m/s LVOT SV 47.53 mL AoV Mean Grad 2.7 mmHg LVOT Diam s 2.00 cm AoV Area (VTI) 2.26 cm2 AV Regurg Peak Gr. 4.47 mmHg Velocity Ratio 0.67 AR Decel [place] 1.5m/sec2 AR DT 2664 msec AR PHT 773 msec AR Vmax 4.01 m/s Mitral Valve MV DT 279 (160-240 msec) MV Vmax TIPS 0.76 m/s MV Mean Grad 1.0 (<2mmHg) MV VTI 0.315 m Pulmonary Valve PV Vmax 0.77 (0.5-1.5 m/s) RVOT Vmax 0.50 m/s PV Peak Grad 2.4 mmHg RVOT Peak Gr. 1.0 mmHg PV Mean Boogie 0.55 m/s RVOT VTI 0.125 m PV Mean Grad 1.3 mmHg RVOT Mean Gr. 0.6 mmHg Tricuspid Valve TV S' 0.10 m/s
== END 2024-03-05 04:04 ==
LOC: DI 03:44
PROVIDERS: PCP Family Medicine; Visit Provider Internal Medicine Cardiovascular Disease
DX: I25.10 Atherosclerotic heart disease of native coronary artery without angina pectoris (principal)
CPT/HCPCS: 93306

== ENCOUNTER → 2024-05-22 10:51 | Outpatient (BNVA) | payer MEDICARE, OTHER, SELFPAY | PROVIDERS: PCP Family Medicine; Referring Provider Family Medicine; Visit Provider Internal Medicine Cardiovascular Disease | DX: I25.10 Atherosclerotic heart disease of native coronary artery without angina pectoris (principal) | CPT/HCPCS: 99213 ==

== ENCOUNTER 2024-10-27 06:13 | Observation (INO) | payer MEDICARE, OTHER, SELFPAY ==
[2024-10-27] VITALS (69 sets, daily range): BP systolic 107–156; BP diastolic 66–104; PULSE 57–82; RESP 0–31; TEMP 36.6–36.8; O2SAT 92–100
--- NOTE | 2024-10-27 06:00 | RT.EKG_ITS ---
APPROVED REPORT Exam: Resting ECG Reason for Exam: chest pain Patient Location: E HR:81 bpm ECG Measurements Heart Rate 81 AXIS [place] 147 P 32 QRSd 96 QRS -9 QT 392 T 44 QTc 456 Conclusion Sinus rhythm...normal P axis, V-rate 60- 99 Ventricular trigeminy...trigeminy string>6 w/ V complexes Anterior infarct, old...Q >40mS, abnormal ST-T, V2-V5 Normal [address] depression in V4 - V6 new compared to 02/25/24. Minimal depression in inferior leads.
--- NOTE | 2024-10-27 06:16 | ED.GENADUL_ITS ---
Discharge Plan Discharge Details Chief Complaint: Chest Pain Primary Care Provider: Kelvin Hicks ED Provider: Lucio Pratt [place] Meds and New Rx's Prescriptions: No Action nitroglycerin [Nitrostat] 0.4 mg tablet, sublingual 0.4 mg Sublingual Q5M PRN (Reason: chest pain) Qty: 30 12RF Rx Instructions: Call EMS if needed, up to 3 doses. amlodipine 5 mg tablet 5 mg PO DAILY Qty: 90 3RF lisinopril 10 mg tablet 10 mg PO DAILY Qty: 90 3RF metoprolol succinate 100 mg tablet extended release 24 hr 100 mg PO DAILY Qty: 90 3RF pantoprazole [Protonix] 40 mg tablet,delayed release (DR/EC) 40 mg PO DAILY Qty: 90 3RF rosuvastatin 10 mg tablet 10 mg PO DAILY Qty: 90 3RF glucosam-chond ts-mbxylj-pb ac 1 EACH capsule 1 ea PO BID Rx Instructions: takes 2 caps qd acetaminophen 500 mg tablet 1,500 mg PO BID PRN (Reason: pain) Qty: 270 3RF Rx Instructions: for musculoskeletal discomfort - TDD ~ 3,900mg aspirin 325 mg tablet 325 mg PO DAILY Qty: 90 3RF HPI General Mode of arrival: ambulatory . Date/Time Provider Initiated Documentation: 10/27/24 06:16 . Limitations to Documentation: no limitations . Information obtained by: patient, RN notes reviewed and old records reviewed . HPI Narrative: Patient presents to ED after waking up with chest pressure in the center of his chest with associated shortness of breath. Patient reports over the last couple of days he has been experiencing chest discomfort and shortness of breath with exertion. Initially was thinking it might just be heartburn but then woke up and had symptoms at rest. He took a nitroglycerin this morning which helped with the pain. Pain is coming back now that he is in the ED. He does feel short of breath. He denies diaphoresis, lightheadedness, nausea/vomiting, radiation of pain. He has a history of multiple catheterizations with stents. Denies any recent fever or cough. Denies any leg pain or swelling. Related Data Home Medications ?Medication ?Instructions ?Recorded ?Confirmed [id number]-[id number]-marcbfur-hyalur 1 ea PO BID 04/2610/13/24 ac 375 mg-300 mg-175 mg-2 mg cap acetaminophen 500 mg tablet 1,500 mg (3 x 500 mg) PO B ID PRN 08/17/21 10/13/24 pain #270 tab-caps aspirin 325 mg tablet 325 mg PO DAILY #90 tabs 10/13/24 amlodipine 5 mg tablet 5 mg PO DAILY #90 tabs 08/1010/13/24 lisinopril 10 mg tablet 10 mg PO DAILY #90 tabs 07/2610/13/24 metoprolol succinate 100 mg 100 mg PO DAILY #90 tabs 0 08/10/24 10/13/24 tablet,extended release 24 hr pantoprazole 40 mg tablet,delayed 40 mg PO DAILY #90 t abs 08/10/24 10/13/24 release (Protonix) rosuvastatin 10 mg tablet 10 mg PO DAILY #90 tabs 07/2610/13/24 nitroglycerin 0.4 mg sublingual 0.4 mg sublingual Q5M PRN chest 10/13/24 tablet (Nitrostat) pain #30 tabs Previous Rx's ?Medication ?Instructions ?Recorded acetaminophen 500 mg tablet 1,500 mg (3 x 500 mg) PO B ID PRN 08/17/21 pain #270 tab-caps aspirin 325 mg tablet 325 mg PO DAILY #90 tabs amlodipine 5 mg tablet 5 mg PO DAILY #90 tabs 08/10 lisinopril 10 mg tablet 10 mg PO DAILY #90 tabs 07/26 08/19 metoprolol succinate 100 mg 100 mg PO DAILY #90 tabs 0 08/10/24 tablet,extended release 24 hr pantoprazole 40 mg tablet,delayed 40 mg PO DAILY #90 t abs 08/10/24 release (Protonix) rosuvastatin 10 mg tablet 10 mg PO DAILY #90 tabs 07/26 08/19 nitroglycerin 0.4 mg sublingual 0.4 mg sublingual Q5M PRN chest 10/13/24 tablet (Nitrostat) pain #30 tabs Allergies Allergy/AdvReac Type Severity Reaction Status Date / Time iohexol (From [email or web address]) Allergy Intermediate RASH HEAD Verified 10/27/24 06:23 TO TOE atorvastatin Allergy Unknown Skin Rash Verified 10/27/24 06:23 avocado AdvReac Severe Anaphylaxis Verified 10/27/24 06:23 melatonin AdvReac Intermediate Hives Verified 10/27/24 06:23 General MORRIS: 2 Exam Narrative Exam Narrative: Const: WDWN elderly male in NAD. VS per triage. HEENT: NC/AT. Normal facial exam. Neck: Supple. Trachea midline. Lungs: Mildly tachypneic with a very few crackles at the bases. Cor: Irregular rhythm without murmur. Good radial pulses. GI: Soft/ND/NT. Neuro: A+O x 3. Normal speech, mentation, gait. Cranial nerves II - XII grossly intact. No gross motor or sensory deficit. Ext: No C/C/E. Medical Decision Making 74-year-old male patient presenting with chest pain and shortness of breath. Initially started 2 days ago and was exertional. Now occurred after he woke up. Improved with nitroglycerin he took at home but worsening again here. His EKG is a little concerning for ST depression in his lateral leads V4 through V6. Has very subtle depression in his inferior limb leads. Symptoms seem very consistent with ACS and unstable angina. Will give full dose aspirin and apply Nitropaste. IV established and laboratory studies obtained. Portable chest x- ray ordered. Patient's pain has essentially resolved and his shortness of breath is gone after nitroglycerin paste applied. His portable chest x-ray per my review shows no infiltrate or edema. His CBC is normal. His other laboratory studies are pending. He will be signed out to oncoming ED physician, Dr. Hall, will follow-up on the rest of his labs and plan discussion with [facility] cardiology. Medical Records Medical records reviewed: Yes I reviewed the patient's medical records. Medical records narrative: Cardiology note Imaging Data Radiologic Study: Attestation: I personally reviewed and interpreted this imaging study as follows: Imaging: X-Ray My impression: See [facility] ECG Data Attestation: I personally reviewed and interpreted this ECG (s) as follows: Prior ECG tracings: available for review Interpretation: See EKG/MDM PFSH All Active Problems BPPV (benign paroxysmal positional vertigo) (Acute) 10/15/24. [facility]. 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 Tinajero imiquimod cream, excessive reaction Irritant dermatitis (Acute 01/28/14) Dr. Tinajero rgt anterior tovar Chronic rhinitis (Acute 05/04/11) Benign prostatic hyperplasia (Acute 03/12/13) Medical History Anxiety CAD (coronary artery disease) Surgical History History of heart artery [place] [place] cont lesion; ,mid 1 RCA lesion Social History Smoking/Tobacco Use Status: Never Smoking risk assessment performed?: Yes Alcohol Intake: current Alcohol Intake frequency: a few times a month Alcohol type: beer Drug use: Never Substance use type: does not use Adopted: Yes Caregiver/Support person: No Household members: spouse Housing: house Number of Children: 2 number of grandchildren: 2 Communication Needs: None Do you need help understanding health information?: Rarely 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 Pets and animals: Yes Pets and animals: cat(s) and horse(s) What is your relationship status?: Panel score (0-1 are the most socially isolated patients): 1 What type of physical activity do you participate in: walking Frequency: 3-4 times per week Seatbelt use: always Helmet use: Yes Drive intox or ride w/intox 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
--- NOTE | 2024-10-27 06:30 | DI.RAD_ITS ---
Exam(s) XR PORTABLE CHEST AP EXAM: XR PORTABLE CHEST AP CLINICAL HISTORY: CP TECHNIQUE: 2D digital imaging was performed. COMPARISON: CR XR CHEST 2V PA LATERAL from 12/02/2018 FINDINGS: LUNGS: Clear. No pleural abnormality seen. HEART: Normal size. AORTA: Normal diameter. BONES: Unremarkable for age. Soft tissues: Unremarkable. IMPRESSION: No acute findings. The preliminary [facility] report was reviewed. DATA REPOSITORY: RADIATION DOSE DELIVERED:
[2024-10-27] MEDS: Aspirin 81 MG CHEW 324 MG CH (06:32)
[2024-10-27] MEDS: nitroGLYcerin 2% 1 INCH/1 GM PKT TP (06:32)
[2024-10-27 06:35] LABS: Abs Immature Grans 0.06 10^3/uL (0.0-0.06); HCT 47.7 % (40.0-50.0); HGB 16.1 g/dL (13.5-17.5); Immature Grans % 0.7 %; MCH 30.4 pg (27.0-33.0); MCHC 33.8 % (32.0-36.0); MCV 90 fL (80-95); MPV 9.3 fL (8.0-11.0); Platelet Count 227 10^3/uL (130-400); RBC 5.29 10^6/uL (4.36-5.78); RDW 11.9 % (11.8-14.1); RDW-SD 38.8 fL; WBC 9.18 10^3/uL (4.4-10.8)
[2024-10-27 06:52] LABS: ALT 25 U/L (16-63); AST 17 U/L (15-37); Albumin 4.3 g/dL (3.4-5.0); Alkaline Phosphatase 74 U/L (46-116); Anion Gap 7.7 mmol/L (3-11); BUN 31 mg/dL (7-18); Bilirubin, Total 0.5 mg/dL (0.2-1.0); CO2 30.3 mmol/L (21.0-32.0); Calcium 9.4 mg/dL (8.5-10.1); Chloride 103 mmol/L (98-107); Estimated GFR 64.25 (mL/min/1.73m2); Glucose 99 mg/dL (74-106); Magnesium 2.1 mg/dL (1.8-2.4); Potassium 3.9 mmol/L (3.5-5.1); Sodium 141 mmol/L (136-145); Total Protein 7.9 g/dL (6.4-8.2); Troponin I 9 ng/L (<or=76)
--- NOTE | 2024-10-27 06:52 | DI.[facility]_ITS ---
PROCEDURE INFORMATION: Exam: XR Chest Exam date and time: 10/27/2024 6:46 AM Age: 74 years old Clinical indication: Other: Cp; Chest pain TECHNIQUE: Imaging protocol: Radiologic exam of the chest. Views: 1 view. COMPARISON: CR XR CHEST 2V PA LATERAL 12/02/2018 8:47 PM FINDINGS: Lungs: No focal consolidation seen. Pleural spaces: No large pleural effusion seen. Heart/Mediastinum: Cardiac silhouette magnified by AP technique. Bones/joints: No acute abnormality. IMPRESSION: No acute findings to explain reported symptoms. Dictated and Authenticated by: Denice Gordon MD. Orderin Terence Valdes MD
[2024-10-27 07:01] LABS: D-Dimer 618 ng/mlFEU (<500)
--- NOTE | 2024-10-27 07:07 | NUR.NOTE ---
Nursing Note: PT denied all CP at this time, LS clear in all long
--- NOTE | 2024-10-27 07:18 | ED.PROG_ITS ---
Date of service: 10/27/24 Time of Service: 07:31 Medical Decision Making In brief, this is a 74-year-old male patient with a significant past cardiac history including 6-7 stents, history of CKD, GERD, hypertension, and frequent PVCs, presenting for chest pain and shortness of breath. Please see the prior provider's note for full details, in brief the patient has had several days of chest discomfort and shortness of breath with exertion, and woke up this morning with similar symptoms at rest. His symptoms have resolved with nitroglycerin, concerning for unstable angina versus NSTEMI. At the time that I took over this patient's care, he was awaiting completion of the laboratory workup. He had an EKG that showed a sinus rhythm with a rate of 81, with ventricular trigeminy which is stable and typical for him, but with new subtle depressions in V4 through V6. He had a chest x-ray without focal find ings to explain his symptoms. He received aspirin and nitroglycerin and his symptoms have completely resolved with those interventions. I independently interpreted the laboratory studies, which show no significant leukocytosis, anemia, or thrombocytopenia. The chemistry panel is without evidence of electrolyte abnormality, kidney dysfunction, or liver injury. Initial troponin is negative, and the patient has a negative D-dimer using age- adjusted criteria. I do not see an indication at this time to proceed with CT pulmonary embolism study. 1 hour delta troponin is 10, 3-hour delta is 15, which is quite reassuring. The patient remains chest pain-free after the Nitropaste. Given his significant cardiac history I did reach out to cardiology at [facility], who recommended echo which was performed. This appears largely stable compared to priors, with an LVEF of 34 to 37%, and global hypokinesis of the left ventricle. Cardiology note from 3 months ago references an echo performed in January with similar findings. They recommended initiation of Imdur 30 mg, which I provided in the ED. The internet webmaster and I discussed this patient's history and case, and I feel that he is quite high risk and would benefit from transfer to a cath-capable facility. Dr. Rogers with cardiology is excepting for this patient, bed availability will not be likely until tomorrow. For this reason I reach out to the hospitalist who has graciously accepted this patient for admission while awaiting bed placement at [facility]. The patient remained hemodynamically appropriate and chest pain free throughout his time under my care, and was transferred from this department without incident. Dania Hall MD Medical Records Medical records reviewed: Yes I reviewed the patient's medical records. Lab Data Lab results reviewed: Yes I reviewed the patient's lab results. Critical Care Time Critical Care Time Critical Care Time: Yes Total Critical Care Time: 45 Attestation: Upon my evaluation, this patient had a high probability of imminent or life- threatening deterioration due to unstable angina/ACS with active chest pain, which required my direct attention, intervention, and personal management. I have personally provided 45 minutes of critical care time exclusive of time spent on separately billable procedures. Time includes review of laboratory data, radiology results, discussion with consultants, and monitoring for potential decompensation. Interventions were performed as documented above. Dania Hall MD Discharge Plan Disposition Patient Disposition: Admit to [facility] Condition: Fair Discharge Details Clinical Impression: Unstable angina, Cor athrscl-uns vessel, Chronic kidney disease (CKD), Hyperlipidemia, Essential hypertension, Gastroesophageal reflux disease Admit Date/Time: 10/27/24 11:32 Admit Provider: Lucio Odell Attending Provider: Lucio Odell Primary Care Provider: Kelvin Hicks ED Provider: Dania Hall
[2024-10-27 08:05] LABS: Troponin I 10 ng/L (<or=76)
--- NOTE | 2024-10-27 10:30 | DI.US_ITS ---
APPROVED REPORT EXAM: Comprehensive 2D, Doppler, and color-flow Echocardiogram Patient Location: ER Room/Bed: 1 Integration Manager: Rubin Machado RDCS (AE) Indications: Chest pain Other Information Study Quality: Fair. Technically limited study due to poor subcostal windows. Conclusion Mildly dilated left ventricle. Ejection fraction is 35 to 40%. There is global hypokinesis Normal right ventricular size and function Both atria are normal in size There are no structural or hemodynamically significant valvular abnormalities Wall motion Left Ventricle Left ventricle is mildly dilated. Left ventricular systolic function is mildly decreased. There is normal left ventricular wall thickness. There is global hypokinesis of the left ventricle. LVEF is 35-40%. Right Ventricle The right ventricle is normal size. The right ventricular systolic function is normal. Atria The left atrium size is normal. The right atrium size is normal. Aortic Valve The aortic valve is normal in structure. There is no aortic valvular stenosis. Trace aortic regurgitation. Mitral Valve The mitral valve is normal in structure. No evidence of mitral valve stenosis. Trace mitral regurgitation. Tricuspid Valve The tricuspid valve is normal in structure. There is no tricuspid valve stenosis. Mild tricuspid regurgitation. Pulmonic Valve The pulmonary valve is normal in structure. There is no pulmonic valvular stenosis. Mild pulmonic regurgitation. Great Vessels The aortic root is normal in size. The ascending aorta is normal in size. Aortic arch is not well visualized. The IVC was not visualized. Pericardium There is no pericardial effusion. 2D Dimensions IVSD d PLAX 0.80 cm M: 0.6-1.2 Ao Root d 2.88 cm M: 3.1 - 3.7 LVPW d PLAX 0.79 cm M: 0.6 - 1.2 Ao Asc Diam d 3.46 cm M: 2.6 - 3.4 LVID d PLAX 4.83 cm M: 4.2 - 5.8 LVDs 3.98 cm M: 2.5 - 4.0 LV EF Teichholz 36.7 % FS 17.64 % LV EDV (Teich) 109.2 mL LV ESV (Teich) 69.2 mL Stroke Vol Index (Teich) 20.64 M-Mode TAPSE 2.45 cm (M/F) >1.7 Auto EF LV EDV A4C 116.5 mL LV EDV A2C 91.0 mL LV EDV BP 105.7 mL LV ESV A4C 76.4 mL LV ESV A2C 57.7 mL LV ESV BP 67.0 mL LVEF(%) A4C 34.4 % LVEF(%) A2C 36.6 % LVEF(%) BP 36.7 % LV SV A4C 40.1 ml LV SV A2C 33.3 ml LV SV BP 38.8 ml LV CO A4C 2.5 L/min LV CO A2C 2.2 L/min LV CO BP 2.3 L/min HR A4C 62.94 BPM HR A2C 65.22 BPM LV EDV Index (BP) LA Volume LA Length A4C 4.6 cm LA Length A2C 4.6 cm LA Area A4C s 12.87 cm2 LA Area A2C s 11.81 cm2 LA Vol A4C A-L 30.64 mL LA Vol A2C A-L 26.01 mL LA Vol Biplane A-L 28.3 mL LA Vol/BSA A4C A-L LA Vol/BSA A2C A-L LA Vol/BSA BP A-L 14.6 mL/m2 LA Vol A4C MOD 28.8 mL LA Vol A2C MOD 24.3 mL LA Vol BP MOD 26.6 mL RA Volume RA Area A4C 13.7 cm2 RA ESV A4C (A-L) 29.9mL RA Vol/BSA A4C A-L RA Length A4C 5.3 cm RA ESV A4C (MOD) 29.9mL LV Diastology MV E' medial 0.056 (>0.07 m/s) MV E Vmax 0.54 (0.4-1.3 m/s) MV E/E' MED 9.65 (<14) MV A Vmax 0.85 (0.4-1.3 m/s) MV E' lateral 0.069 (>0.1 m/s) E/A Ratio 0.6 MV E/E' LAT 7.85 (<14) MV E' Average 0.063 m/s MV E/E'(average) 8.66 Aortic Valve AoV Vmax 1.03 m/s LVOT Vmax 0.73 m/s AoV Peak Grad 4.3 mmHg LVOT Peak Grad 2.1 mmHg AoV Area (Vmax) 2.42 cm2 LVOT VTI 0.165 m AoV VTI 0.214 m LVOT Mean Grad 1.2 mmHg AoV Mean Boogie. 0.82 m/s LVOT SV 56.57 mL AoV Mean Grad 2.8 mmHg LVOT Diam s 2.05 cm AoV Area (VTI) 2.65 cm2 AV Regurg Peak Gr. 4.26 mmHg Velocity Ratio 0.71 Mitral Valve MV DT 245 (160-240 msec) Pulmonary Valve PV Vmax 0.59 (0.5-1.5 m/s) RVOT Vmax 0.49 m/s PV Peak Grad 1.4 mmHg RVOT Peak Gr. 1.0 mmHg PV Mean Boogie 0.41 m/s RVOT VTI 0.104 m PV Mean Grad 0.8 mmHg RVOT Mean Gr. 0.5 mmHg
[2024-10-27 10:57] LABS: Troponin I 15 ng/L (<or=76)
--- NOTE | 2024-10-27 11:33 | HPE_ITS ---
Date of service: 10/27/24 Time of Service: 11:33 Assessment and Plan Assessment and plan (1) Chest pain: Status: Acute Assessment and plan: working diagnosis is unstable angina, consult with [facility] [place] and plan to transfer when bed available for cardiac catheterization. No recommendations for heparin, patient is now pain free after nitro started on Imdur 30 mg daily echo completed in ED, results pending. accepting is Dr Ken ESPOSITO after midnight routine cardiac monitoring serial troponin remain negative, EKG with no ischemic changes. (2) Other and unspecified hyperlipidemia: Status: Chronic Assessment and plan: continue rosuvastatin (3) Gastroesophageal reflux disease: Status: Chronic Assessment and plan: Continue protonix (4) Essential hypertension: Status: Chronic Assessment and plan: Hold Rome-i at this time pending cardiac cath). Did not take a.m. metoprolol succinate will give half dose tartrate this evening (5) DVT prophylaxis: Status: Acute Assessment and plan: lovenox sc (6) Discharge planning issues: Status: Acute Assessment and plan: Full code transfer to [facility] [place] pending discussed with DR Odell History of Present Illness Narrative: This is a 74-year-old male patient past medical history significant for coronary artery disease status post 6-7 stents, kidney disease, GERD, hypertension who presented to the emergency department for complaints of pain with shortness of breath on exertion. Reportedly having several days of exertional chest pain and shortness of breath relieved with rest. On the morning of presentation he woke up and noted that he had chest pain and shortness of breath while at rest. He was brought to the emergency department for evaluation. His symptoms resolved with nitroglycerin. His workup in the emergency department did show EKG with normal sinus rhythm no acute ST segment changes. Negative troponin. No significant lab abnormalities. He remained chest pain-free after receiving the nitroglycerin. His case was discussed with cardiology at [facility] with recommendations to start on Imdur 30 mg daily which was started in the emergency department. He also had an echocardiogram completed while down there which showed a EF of 34 to 37% with global hypokinesis of the left ventricle. When compared to echocardiogram 3 months ago these were similar findings. As there was no beds available at [facility] he will stay on the MedSurg unit for further monitoring while a bed becomes available. He is accepted by Dr. Rogers. Review of Systems All systems reviewed & are unremarkable except as noted in HPI and below PFSH All Active Problems (Updated 10/27/24 @ 11:38 by Fidelia Aparicio NP) Unstable angina (Acute) Discharge planning issues (Acute) DVT prophylaxis (Acute) Chest pain (Acute) 12/04/18- cardiac catheterization. [facility] [place] Mamadou Gordon MD BPPV (benign paroxysmal positional vertigo) (Acute) 10/15/24. [facility]. 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 Tinajero imiquimod cream, excessive reaction Irritant dermatitis (Acute 01/28/14) Dr. Tinajero rgt anterior tovar Chronic rhinitis (Acute 05/04/11) Benign prostatic hyperplasia (Acute 03/12/13) Medical History (Updated 10/27/24 @ 11:38 by Fidelia Aparicio NP) Anxiety CAD (coronary artery disease) Surgical History History of heart artery stent 12/04/18-[facility] [place]; mid TEODORA cont lesion; ,mid 1 RCA lesion Social History Smoking/Tobacco Use Status: Never Smoking risk assessment performed?: Yes Alcohol Intake: current Alcohol Intake frequency: a few times a month Alcohol type: beer Drug use: Never Substance use type: does not use Adopted: Yes Caregiver/Support person: No Household members: spouse Housing: house Number of Children: 2 number of grandchildren: 2 Communication Needs: None Do you need help understanding health information?: Rarely 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: No Water heater temp set <120 deg: Yes Working smoke detector in home: Yes Fire extinguisher in home: Yes Carbon monox detector in home: Yes Do you feel safe at home: Yes Do you feel safe in your relationship?: Yes Victim of physical abuse: No Victim of emotional abuse: No Victim of sexual abuse: No Meds Allergies and Home Medications Allergies Allergy/AdvReac Type Severity Reaction Status Date / Time iohexol (From Omnipaque) Allergy Intermediate RASH HEAD Verified 10/27/24 06:23 TO TOE atorvastatin Allergy Unknown Skin Rash Verified 10/27/24 06:23 avocado AdvReac Severe Anaphylaxis Verified 10/27/24 06:23 melatonin AdvReac Intermediate Hives Verified 10/27/24 06:23 Home Medications ?Medication ?Instructions ?Recorded ?Confirmed ?Type iuwmxmudfw-sqrwfyjonj-xwgcozdx-hyalur 1 ea PO BID 04/2610/27/24 History ac 375 mg-300 mg-175 mg-2 mg cap acetaminophen 500 mg tablet 1,500 mg (3 x 500 mg) PO B ID PRN 08/17/21 10/27/24 Rx pain #270 tab-caps aspirin 325 mg tablet 325 mg PO DAILY #90 tabs 10/27/24 Rx amlodipine 5 mg tablet 5 mg PO DAILY #90 tabs 08/1010/27/24 Rx lisinopril 10 mg tablet 10 mg PO DAILY #90 tabs 07/2610/27/24 Rx metoprolol succinate 100 mg 100 mg PO DAILY #90 tabs 0 08/10/24 10/27/24 Rx tablet,extended release 24 hr pantoprazole 40 mg tablet,delayed 40 mg PO DAILY #90 t abs 08/10/24 10/27/24 Rx release (Protonix) rosuvastatin 10 mg tablet 10 mg PO DAILY #90 tabs 07/2610/27/24 Rx nitroglycerin 0.4 mg sublingual 0.4 mg sublingual Q5M PRN chest 10/13/24 10/27/24 Rx tablet (Nitrostat) pain #30 tabs Exam Narrative Exam Narrative: Obese white male of stated age no acute distress head is atraumatic eyes nonicteric noninjected oral mucosas moist neck full range of motion no JVD cardiovascular regular rate and rhythm no murmurs respirations even and unlabored breath sounds are clear bilaterally abdomen is soft nontender moves all extremities equally no peripheral edema neurologic he is awake alert oriented no focal deficits psychiatric appropriate mood and affect Results Labs 10/27/24 06:24 10/27/24 06:24 Labs: Laboratory Results - last 24 hr 10/27/24 10/27/24 10/27/24 06:24 07:35 10:02 WBC 9.18 RBC 5.29 Hgb 16.1 Hct 47.7 MCV 90 MCH 30.4 MCHC 33.8 RDW 11.9 Plt Count 227 MPV 9.3 Immature Gran % 0.7 Neutrophils % 62.5 Lymphocytes % 21.9 Monocytes % 8.6 Eosinophils % 5.8 Basophils % 0.5 Nucleated RBC % 0.0 Absolute Neutrophils 5.74 Absolute Lymphocytes 2.01 Absolute Monocytes 0.79 Absolute Eosinophils 0.53 Absolute Basophils 0.05 D-Dimer 618 H Sodium 141 Potassium 3.9 Chloride 103 Carbon Dioxide 30.3 Anion Gap 7.7 BUN 31 H Creatinine 1.2 Est GFR (CKD-EPI 2020) 64.25 Glucose 99 Calcium 9.4 Magnesium 2.1 Total Bilirubin 0.5 AST 17 ALT 25 Alkaline Phosphatase 74 Troponin I 9 10 15 Total Protein 7.9 Albumin 4.3 Last Vital Signs Pulse 59 L 10/27/24 10:01 Resp 13 10/27/24 10:01 BP 114/70 10/27/24 10:01 Pulse Ox 96 10/27/24 10:01 Time Spent Time spent with Patient: 55-74 minutes Time was spent: preparing to see the patient(eg.review tests), obtaining and/or reviewing separately otained hiistory, ordering medications,tests, procedures, referring, communicating with other health childcare aide, indepentently interpreting results and counseling the patient
[2024-10-27] MEDS: Normal Saline Flush 10 ML SYR IVP ×2 (11:44→21:04)
[2024-10-27] MEDS: Isosorbide Mononitrate 30 MG TABCR PO (11:44)
--- NOTE | 2024-10-27 12:44 | W.PC.ACHO ---
Registration Status: ADM EREN Primary Language: Preferred Language: Yoruba ED Information & Data Chief Complaint Chest Pain 10/27/24 06:19 Chief Complaint Chest Pain 10/27/24 06:16 Triage Note arrives via \POV from home, 10/27/24 06:16 c/o chest pain and SOB that he has had for the last 3-4 days, woke up with worsening pain around 430 this morning. took a nitro and had some relief but worse now since he got here. Hx 6- 7 stents. Denies N/V. Medical / Surgical History (Last Reviewed 10/27/24 @ 06:38 by Lucio Pratt MD) Anxiety CAD (coronary artery disease) (Last Reviewed 10/27/24 @ 06:38 by Lucio Pratt MD) History of heart artery stent Most Recent Vital Signs Pulse 65 10/27/24 12:21 Pulse 65 10/27/24 12:21 Respiratory Rate 14 10/27/24 12:21 Respiratory Effort Normal, Non-Labored 10/27/24 06:21 Respiratory Depth Normal 10/27/24 06:21 Respiratory Pattern Normal 10/27/24 06:21 Blood Pressure 129/75 10/27/24 12:21 Blood Pressure Mean 91 10/27/24 12:21 Blood Pressure Position Supine 10/27/24 06:16 Pulse Oximetry 96 10/27/24 12:21 Oxygen Delivery Method Room Air 10/27/24 06:16 Oxygen Flow Rate 0 10/27/24 06:16 Pain Level 6 10/27/24 06:21 Allergies iohexol (From Omnipaque) Allergy (Intermediate, Verified 10/27/24 06:23) RASH HEAD TO TOE CARDIAC CATH REACTION atorvastatin Allergy (Unknown, Verified 10/27/24 06:23) Skin Rash avocado Adverse Reaction (Severe, Verified 10/27/24 06:23) Anaphylaxis melatonin Adverse Reaction (Intermediate, Verified 10/27/24 06:23) Hives Developed rash & hives; went away when he stopped taking Precautions Isolation Standard precaution 10/27/24 06:19 Active Medications Generic Name Dose Route Start Last Admin Trade Name Freq PRN Reason Stop Dose Admin Sodium Chloride 0 ml 10/27/24 08:30 10/27/24 11:44 Normal Saline Flush 10 Ml Syr IVP 10 ml BID PRIMO Administration IV IV Catheter Type [Right Diffusics Forearm] Diet Orders Category Date Time Status Regular/Normal [DIET] Nutrition 10/27/24 Lunch Active Diagnostics 10/27/24 10/27/24 10/27/24 Range/Units 10:02 07:35 06:24 WBC 9.18 (4.4-10.8) 10^3/uL RBC 5.29 (4.36-5.78) 10^6/uL Hgb 16.1 (13.5-17.5) g/dL Hct 47.7 (40.0-50.0) % MCV 90 (80-95) fL MCH 30.4 (27.0-33.0) pg MCHC 33.8 (32.0-36.0) % RDW 11.9 (11.8-14.1) % Plt Count 227 (130-400) 10^3/uL MPV 9.3 (8.0-11.0) fL Immature Gran % 0.7 % Neutrophils % 62.5 % Lymphocytes % 21.9 % Monocytes % 8.6 % Eosinophils % 5.8 % Basophils % 0.5 % Nucleated RBC % 0.0 (0.0-0.3) % Absolute Neutrophils 5.74 (1.2-6.7) 10^3/uL Absolute Lymphocytes 2.01 (1.2-3.4) 10^3/uL Absolute Monocytes 0.79 (0.1-0.8) 10^3/uL Absolute Eosinophils 0.53 (0.0-0.7) 10^3/uL Absolute Basophils 0.05 (0.0-0.2) 10^3/uL D-Dimer 618 H (<500) ng/mlFEU Sodium 141 (136-145) mmol/L Potassium 3.9 (3.5-5.1) mmol/L Chloride 103 (98-107) mmol/L Carbon Dioxide 30.3 (21.0-32.0) mmol/L Anion Gap 7.7 (3-11) mmol/L BUN 31 H (7-18) mg/dL Creatinine 1.2 (0.70-1.30) mg/dL Est GFR (CKD-EPI 2020) 64.25 (mL/min/1.73m2) Glucose 99 (74-106) mg/dL Calcium 9.4 (8.5-10.1) mg/dL Magnesium 2.1 (1.8-2.4) mg/dL Total Bilirubin 0.5 (0.2-1.0) mg/dL AST 17 (15-37) U/L ALT 25 (16-63) U/L Alkaline Phosphatase 74 (46-116) U/L Troponin I 15 10 9 (<or=76) ng/L Total Protein 7.9 (6.4-8.2) g/dL Albumin 4.3 (3.4-5.0) g/dL Intake and Output - 24 Hour Total 10/27/24 06:13 thru 10/27/24 06:16 Weight 76.204 kg Falls Risk Assessment History of Falls No History 10/27/24 06:19 Contributing Factors No Factors 10/27/24 06:19 Ambulatory Aids Independent 10/27/24 06:19 Tubes/Lines None 10/27/24 06:19 Gait Evaluation No gait disturbance 10/27/24 06:19 Cognition No cognitive impairment 10/27/24 06:19 Fall Total Score 0 10/27/24 06:19 Level of Risk Standard/Low Risk 10/27/24 06:19 Problems (Last Reviewed 10/27/24 @ 06:38 by Lucio Pratt MD) Discharge planning issues (Acute) DVT prophylaxis (Acute) Chest pain (Acute) Other and unspecified hyperlipidemia (Chronic 05/28/12) Gastroesophageal reflux disease (Chronic 02/25/03) Essential hypertension (Chronic 11/28/12) Notes 10/27/24 07:07 Nursing Notes by Taylor Borjas Nursing Note: PT denied all CP at this time, LS clear in all long Initialized on 10/27/24 07:07 - END OF NOTE v v v v v v v v v Sending and/or Receiving Nurses: Please use comment section below to note any information pertinent to the patient hand-off not included above. Information / Comments: Pt arrived to floor via stretcher from ED. REceived report from Destiney ED RN that pt is stable with VS and is independent with ambulation at baseline. Report received from: Destiney
[2024-10-27] MEDS: Acetaminophen 325 MG TAB 650 MG PO (18:17)
[2024-10-27] MEDS: Metoprolol 50 MG TAB PO (18:32)
[2024-10-27] MEDS: Metoprolol 25 MG TAB PO (21:04)
[2024-10-28] MEDS: Acetaminophen 500 MG TAB 1000 MG PO ×2 (01:28→18:28)
[2024-10-28 06:17] VITALS: BP 158/81; PULSE 64; RESP 28; TEMP 36.5; O2SAT 98
[2024-10-28] MEDS: Isosorbide Mononitrate 30 MG TABCR PO (06:38)
[2024-10-28] MEDS: Pantoprazole 40 MG TABCR PO (06:38)
[2024-10-28 06:53] LABS: Abs Immature Grans 0.06 10^3/uL (0.0-0.06); HCT 43.2 % (40.0-50.0); HGB 14.5 g/dL (13.5-17.5); Immature Grans % 0.6 %; MCH 30.5 pg (27.0-33.0); MCHC 33.6 % (32.0-36.0); MCV 91 fL (80-95); MPV 9.5 fL (8.0-11.0); Platelet Count 197 10^3/uL (130-400); RBC 4.75 10^6/uL (4.36-5.78); RDW 11.6 % (11.8-14.1); RDW-SD 38.7 fL; WBC 9.96 10^3/uL (4.4-10.8)
[2024-10-28 07:04] LABS: Anion Gap 8.4 mmol/L (3-11); BUN 33 mg/dL (7-18); CO2 27.6 mmol/L (21.0-32.0); Calcium 8.9 mg/dL (8.5-10.1); Chloride 103 mmol/L (98-107); Estimated GFR 71.32 (mL/min/1.73m2); Glucose 93 mg/dL (74-106); Potassium 4.2 mmol/L (3.5-5.1); Sodium 139 mmol/L (136-145)
[2024-10-28 07:59] VITALS: BP 106/83; PULSE 75; RESP 19; TEMP 36.5; O2SAT 94
--- NOTE | 2024-10-28 08:08 | PDOC.CMIN ---
Date of service: 10/28/24 Time of Service: 15:59 Care Management Initial Assmt Initial Assessment Reason for Hospitalization: unstable angina Functional Status/Living Situation Patient Presentation: Clark was laying down in bed visiting with his Kortney when CM met with him. Clark presented to the ED yesterday morning with chest pressure in the center of his chest with associated shortness of breath. Per report, he has been accepted [place] [facility] [place]. Today, Clark appears eager to go to [facility] and states that he just wants to get there and get it over with. Clark shares that he lives in [place] with Kortney. He has local family who are good supports. Clark states he is independent at baseline, including drive. He denies being affiliated with any community organizations, and denies the need at this time. Clark does have advanced directives, see document. CM will continue to follow. Town of Residence: [place] Resides with: Spouse (Kortney ) Significant Other/Family: Local Natural Supports: Family Instrumental Activities of Daily Living (ADLs): Independent Activities/Hobbies/SocialSupport: Spending time with family, working outside Medications Medication Management: No Issues/Barriers identified Physical Functioning/Mobility Assistive Device: None Advance Directives Advance Directives: Do you have an Advance Directive: Y 10/27/24, 06:49 AD On File at [facility]: Y 10/27/24, 06:49 Date Asked 01/23/24 10/27/24, 07:12 AD Date Reviewed 10/27/24 10/27/24, 06:49 COLST On File at [facility] COLST Date Scanned Code Status Resuscitation Status Full Code Portal Pt does not currently have a portal and education provided: Yes Insurance Coverage/Financial Issues Insurance: Medicare Part A & B - [id number] [employer] Medicare Supplement Ins - [id number] Care Team Visit Care Team Role Provider Type Fidelia Aparicio NP NURSE PRACTITIONER Kelvin Hicks DO Primary Care Provider OSTEOPATHIC DOCTOR Dania Hall MD Emergency Provider [facility] STAFF PHYSICIAN Lucio Odell MD Admit Provider [facility] STAFF PHYSICIAN Attending Provider Discharge Potential Discharge Needs: PCP F/U Appt Anticipated Barriers to Discharge: Medical Status Patient/Family Education Needs: Review discharge instructions, discuss Ask Me Three Transportation: EMS Plan: Anticipate Clark will be transferred to [facility] [place] cardiac cauterization placement once there is an available bed, he will be transported by EMS. CM will continue to follow. Social Determinants of Health Screening Social Determinants of health last assessed in clinic: 10/28/24 Will the Patient Participate in the Screening?: Yes Do you worry about having a steady place to live?: no Problems where you live: no known problems In the past 12 months, have you had to go without electric, gas, oil or water in your home?: no 1. Within the past 12 months, we worried whether our food would run out before we got money to buy more.: Never true 2. Within the past 12 months, the food we bought just didn't last and we didn't have money to get more.: Never true Has lack of transportation kept you from medical appointments or from doing things needed for daily living?: no Has anyone in your life made you feel unsafe or unsupported?: no How hard is it for you to pay for the very basics like food, housing, medical care, and heating? Would you say it is:: Not hard at all Do you want help finding or keeping work or a job?: I do not need or want help If for any reason you need help with day-to-day activities such as bathing, preparing meals, shopping, managing finances, etc., do you get the help you need?: I don?t need any help How often do you feel lonely or isolated from those around you?: Never Do you speak a language other than Kinyarwanda at home?: No Does the patient want assistance with any of the above?: No PFSH All Active Problems (Updated 10/28/24 @ 09:40 by Lorelei Perkins APRN) HFrEF (heart failure with reduced ejection fraction) (Acute) Unstable angina (Acute) Discharge planning issues (Acute) DVT prophylaxis (Acute) Chest pain (Acute) 12/04/18- cardiac catheterization. [facility] Mamadou Gordon MD BPPV (benign paroxysmal positional vertigo) (Acute) 10/15/24. [facility]. Combined forms of age-related cataract, left eye (Acute) Positive self-administered antigen test for COVID-19 (Acute) Chronic kidney disease (CKD) (Chronic) Nocturnal leg cramps (Acute) Cervicalgia (Acute) Hyperlipidemia (Acute) Systolic dysfunction (Acute) EF 50-55% Other and unspecified hyperlipidemia (Chronic 05/28/12) LDL baseline 167 Gastroesophageal reflux disease (Chronic 02/25/03) EGD Dr Rapp 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 Tinajero imiquimod cream, excessive reaction Irritant dermatitis (Acute 01/28/14) Dr. Tinajero rgt anterior tovar Chronic rhinitis (Acute 05/04/11) Benign prostatic hyperplasia (Acute 03/12/13) Medical History (Updated 10/28/24 @ 09:40 by Lorelei Perkins APRN) Anxiety CAD (coronary artery disease) Surgical History [place] [place] lesion; ,mid 1 RCA lesion Social History Smoking/Tobacco Use Status: Never Smoking risk assessment performed?: Yes Alcohol Intake: current Alcohol Intake frequency: a few times a month Alcohol type: beer Drug use: Never Substance use type: does not use Adopted: Yes Caregiver/Support person: No Household members: spouse Housing: house Number of Children: 2 number of grandchildren: 2 Communication Needs: None Do you need help understanding health information?: Rarely 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 Pets and animals: Yes Pets and animals: cat(s) and horse(s) What is your relationship status?: Panel score (0-1 are the most socially isolated patients): 1 What type of physical activity do you participate in: walking Frequency: 3-4 times per week Seatbelt use: always Helmet use: Yes Drive intox or ride w/intox 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
[2024-10-28] MEDS: Aspirin E.C. 81 MG TABEC PO (08:59)
[2024-10-28] MEDS: Metoprolol CR 100 MG TABCR PO (08:59)
[2024-10-28] MEDS: amLODIPine 5 MG TAB PO (08:59)
[2024-10-28] MEDS: Normal Saline Flush 10 ML SYR IVP ×2 (09:00→21:39)
--- NOTE | 2024-10-28 09:09 | W.PM.PROGNOT ---
Date of Service Date of service: 10/28/24 Time of Service: 09:09 Assessment and Plan Assessment and plan (1) Chest pain: Status: Acute Assessment and plan: working diagnosis is unstable angina, consult with [facility] and plan to transfer when bed available for cardiac catheterization. No recommendations for heparin, patient is now pain free after nitro Ongoing Imdur 30 mg daily echocardiogram completed on 10/27/24 with the following findings: Conclusion Mildly dilated left ventricle. Ejection fraction is 35 to 40%. There is global hypokinesis Normal right ventricular size and function Both atria are normal in size There are no structural or hemodynamically significant valvular abnormalities Accepted by Dr Rogers at [facility] - not bed as off 17:05 today Resume diet then NPO after midnight Ongoing cardiac monitoring PRN troponin for ACS symptoms. Serial troponin remain negative, EKG with no ischemic changes. Labs in AM (2) HFrEF (heart failure with reduced ejection fraction): Status: Acute Assessment and plan: As per LVEF 35-40%- previously around 40% GDMT: Initiating Jardiance - ACEI's on hold- should not be restarted - transition to Entresto s/p cath - On metorprolol CR -Consider adding mineralocorticoid receptor antagonist as per CV TECH f/u or cardiology (3) Other and unspecified hyperlipidemia: Status: Chronic Assessment and plan: continue rosuvastatin (4) Gastroesophageal reflux disease: Status: Chronic Assessment and plan: On protonix (5) Essential hypertension: Status: Chronic Assessment and plan: Hold Rome-i at this time (pending cardiac cath), then transition to Entresto On daily metoprolol CR 100 mg (6) DVT prophylaxis: Status: Acute Assessment and plan: LMWH ordered (7) Discharge planning issues: Status: Acute Assessment and plan: Full code transfer to [facility] pending but not bed today , most likely tomorrow discussed with DR Odell Subjective Subjective Patient reports: tolerating liquids well, tolerating a regular diet, voiding w/o difficulty and flatus; denies still having pain, diarrhea, nausea, vomiting, shortness of breath or fever Exam Narrative Exam Narrative: &4 years old male looking younger than stated age no acute distress , neurologic alert oriented w/o focal deficit, nonicteric noninjected , no JVD cardiovascular regular rate and rhythm, tele SR with PVC's, no murmurs, respirations even and unlabored w clear bilateral breath sounds , abdomen is soft nontender moves all extremities equally no peripheral edema psychiatric appropriate mood and affect Objective Last Vital Signs Temp 36.5 C 10/28/24 07:59 Pulse 75 10/28/24 07:59 Resp 19 10/28/24 07:59 BP 106/83 10/28/24 07:59 Pulse Ox 94 10/28/24 07:59 Laboratory Results - last 24 hr 10/27/24 10/28/24 10:02 06:00 WBC 9.96 RBC 4.75 Hgb 14.5 Hct 43.2 MCV 91 MCH 30.5 MCHC 33.6 RDW 11.6 L Plt Count 197 MPV 9.5 Immature Gran % 0.6 Neutrophils % 69.6 Lymphocytes % 17.7 Monocytes % 7.8 Eosinophils % 3.8 Basophils % 0.5 Nucleated RBC % 0.0 Absolute Neutrophils 6.93 H Absolute Lymphocytes 1.76 Absolute Monocytes 0.78 Absolute Eosinophils 0.38 Absolute Basophils 0.05 Sodium 139 Potassium 4.2 Chloride 103 Carbon Dioxide 27.6 Anion Gap 8.4 BUN 33 H Creatinine 1.1 Est GFR (CKD-EPI 2020) 71.32 Glucose 93 Calcium 8.9 Troponin I 15 Time Spent with Patient Time Spent with Patient: >50 minutes Time was spent: preparing to see the patient(eg.review tests), obtaining and/or reviewing separately otained hiistory, ordering medications,tests, procedures, referring, communicating with other health director long term care, indepentently interpreting results, counseling the patient and care coordination
[2024-10-28 10:01] LABS: Lab Add On Test DONE
[2024-10-28] MEDS: Empaglifozin 10 MG TAB PO (10:14)
[2024-10-28] MEDS: Enoxaparin 40 MG/0.4 ML SYR SC (10:14)
[2024-10-28 10:33] LABS: NT-proBNP 76 pg/mL (<300)
--- NOTE | 2024-10-28 11:18 | PHACLINREV_ITS ---
Pharmacy Admission Review Admission Clinical Review Admission Pharmacy Review: HFrEF (heart failure with reduced ejection fraction) (Acute) Discharge planning issues (Acute) DVT prophylaxis (Acute) Chest pain (Acute) iohexol (From Omnipaque) Allergy (Intermediate, Verified 10/27/24 06:23) RASH HEAD TO TOE atorvastatin Allergy (Unknown, Verified 10/27/24 06:23) Skin Rash avocado Adverse Reaction (Severe, Verified 10/27/24 06:23) Anaphylaxis melatonin Adverse Reaction (Intermediate, Verified 10/27/24 06:23) Hives Resuscitation Status Full Code Height 5 ft 10 in Weight 77.111 kg Comments Comments/Follow Ups: [facility] transfer pending bed Pharmacy Admission Review Renal Dosing Renal Dosing: BUN 33 mg/dL (7-18) H 10/28/24 06:00 Creatinine 1.1 mg/dL (0.70-1.30) 10/28/24 06:00 Medications needing adjustments: Reviewed (CrCl 66.21 mL/min, BUN increased from 31) List of meds needing interventions: Current medications are okay Anticoagulation Anticoagulation: Hgb 14.5 g/dL (13.5-17.5) 10/28/24 06:00 Hct 43.2 % (40.0-50.0) 10/28/24 06:00 Plt Count 197 10^3/uL (130-400) 10/28/24 06:00 Creatinine 1.1 mg/dL (0.70-1.30) 10/28/24 06:00 DVT Prophylaxis: Intervened (Reached out to provider as H+P mentioned Lovenox but was not ordered. Provider put in order) Medications: Enoxaparin (40mg daily) Relevant Labs Relevant Labs: Sodium 139 mmol/L (136-145) 10/28/24 06:00 Potassium 4.2 mmol/L (3.5-5.1) 10/28/24 06:00 Chloride 103 mmol/L (98-107) 10/28/24 06:00 Magnesium 2.1 mg/dL (1.8-2.4) 10/27/24 06:24 Electrolytes, C-Reactive P, ESR: Reviewed Cardiac Review Cardiac Review: Troponin I 15 ng/L (<or=76) 10/27/24 10:02 NT-Pro-B Natriuret Pep 76 pg/mL (<300) 10/28/24 06:00 BP, HR, EF%: Reviewed (HR and BP WNL) List meds needing interventions: Has orders for amlodipine 5mg daily, Jardiance 10mg daily, isosorbide mononitrate CR 30mg daily and metoprolol XL 100mg daily QTc Review QTc: Reviewed (456 from 10/27/24) IV to PO Switch IV Medications: Reviewed Home Meds Home Med List reviewed: Reviewed Relevent Home Meds Not ordered & why?: glucosamine, lisinopril (on hold per H+P) and nitroglycerin (PRN) Current Meds Current Medication Order Review: Intervened Comments: Patient had 2 orders for PRN APAP - reached out to provider who discontinued one of the orders Changed IV ED access Isosorbide order had been put in for a first dose at 0630 this morning and next dose same day at 0830. Dose was given at 0630, changed order to start tomorrow morning at 0830 - provider aware Comments Comments/Follow Ups: [facility] transfer pending bed
[2024-10-28 12:27] VITALS: BP 115/62; PULSE 60; RESP 16; TEMP 37; O2SAT 97
--- NOTE | 2024-10-28 15:22 | CHAPLAIN ---
Clark was resting in bed when I visited. He is waiting to be transferred to [facility], waiting for a bed to open up and then find out if he'll be assigned to a room or having a procedure done. His Ashlee is with him. She retired recently from being a [facility] [facility] ED nurse for many years. Clark is anxious to learn about when he'll be transferred and what will happen at [facility]. I explained my role and offered support.
--- NOTE | 2024-10-28 15:54 | NUR.NOTE ---
Access chart to determine what unit pt was on for a call from [facility] transfer ctr. Nursing Note:
[2024-10-28 19:29] VITALS: BP 123/62; PULSE 80; RESP 16; TEMP 36.4; O2SAT 95
[2024-10-28] MEDS: Rosuvastatin 10 MG TAB PO (21:39)
[2024-10-29] MEDS: nitroGLYcerin 0.4 MG TAB SL ×3 (01:59→03:51)
[2024-10-29 02:00] VITALS: BP 149/72; PULSE 78; RESP 16; TEMP 36.4; O2SAT 98
[2024-10-29] MEDS: Acetaminophen 500 MG TAB 1000 MG PO ×2 (02:06→14:24)
[2024-10-29 03:50] VITALS: BP 114/88; PULSE 65; RESP 16; TEMP 36.4; O2SAT 97
--- NOTE | 2024-10-29 04:00 | RT.EKG_ITS ---
APPROVED REPORT Exam: Resting ECG Reason for Exam: chest pain Patient Location: I HR:68 bpm ECG Measurements Heart Rate 68 AXIS DE 133 P 30 QRSd 93 QRS -16 QT 402 T 64 QTc 428 Conclusion Sinus rhythm...normal P axis, V-rate 50- 99 Anterior infarct, old...Q >40mS, abnormal ST-T, V2-V5
[2024-10-29 04:23] LABS: Abs Immature Grans 0.04 10^3/uL (0.0-0.06); HCT 44.4 % (40.0-50.0); HGB 15.0 g/dL (13.5-17.5); Immature Grans % 0.4 %; MCH 30.2 pg (27.0-33.0); MCHC 33.8 % (32.0-36.0); MCV 90 fL (80-95); MPV 9.2 fL (8.0-11.0); Platelet Count 228 10^3/uL (130-400); RBC 4.96 10^6/uL (4.36-5.78); RDW 11.7 % (11.8-14.1); RDW-SD 37.5 fL; WBC 10.19 10^3/uL (4.4-10.8)
[2024-10-29] MEDS: nitroGLYcerin 2% 1 INCH/1 GM PKT TP ×2 (04:28→11:21)
[2024-10-29 04:35] LABS: Anion Gap 12.2 mmol/L (3-11); BUN 35 mg/dL (7-18); CO2 24.8 mmol/L (21.0-32.0); Calcium 9.2 mg/dL (8.5-10.1); Chloride 103 mmol/L (98-107); Estimated GFR 58.37 (mL/min/1.73m2); Glucose 92 mg/dL (74-106); Potassium 4.2 mmol/L (3.5-5.1); Sodium 140 mmol/L (136-145)
--- NOTE | 2024-10-29 04:36 | W.EVENT ---
Date of service: 10/29/24 Time of Service: 04:36 Event Note: Message from RN, Clark having recurrent chest pain. Same pain, mid chest, a/w tingling in hands. Not SOB. Had one episode earlier overnight and we away with SL NTG, but this one is not going away. I ordered EKG, troponins now and with AM labs (should be 1-2 hours later) and went to evaluate Mr. Mcdonald. VS at the time of onset of chest pain stable, BP 114/88, HR 65, 97% RA. He appeared in no acute distress, sitting up in bed, breathing comfortably, heart RRR no m/G/R, no JVP, mildly anxious compared to his baseline, which is quite calm. EKG NSR, less prominent ST depressions V2-V6 than what were seen on admission EKG. Repeat troponin 11, remains reassuring. Will try NTG per patient request, but if chest pain not resolving will move to ICU for NTG drip. On re-evaluation, chest pain had resolved. transfer center called to update. Talked to Dr. Dennis from cardiology to update. He agreed with NTG drip if chest pain recurs again. He is priorty for today, will call when bed ready. Time Spent with Patient Time spent in critical care(minutes): 60 Time Spent Included: Coordination of care, Chart review, Documenting critically ill care, Time at immediate bedside and Discussing critically ill care with other medical staff
[2024-10-29 04:43] LABS: Troponin I 11 ng/L (<or=76)
[2024-10-29 06:45] LABS: Troponin I 9 ng/L (<or=76)
[2024-10-29 07:49] VITALS: BP 132/86; PULSE 60; RESP 16; TEMP 36; O2SAT 94
[2024-10-29] MEDS: Pantoprazole 40 MG TABCR PO (07:52)
[2024-10-29] MEDS: Enoxaparin 40 MG/0.4 ML SYR SC (07:53)
[2024-10-29] MEDS: Aspirin E.C. 81 MG TABEC PO (07:53)
[2024-10-29] MEDS: Metoprolol CR 100 MG TABCR PO (07:53)
[2024-10-29] MEDS: Empaglifozin 10 MG TAB PO (07:53)
[2024-10-29] MEDS: Isosorbide Mononitrate 30 MG TABCR PO (07:53)
[2024-10-29] MEDS: amLODIPine 5 MG TAB PO (07:53)
[2024-10-29] MEDS: Normal Saline Flush 10 ML SYR IVP (07:54)
--- NOTE | 2024-10-29 09:28 | PDOC.CMPRO ---
Date of service: 10/29/24 Time of Service: 13:11 Care Management Progress Note Progress Note Text Progress Note Text: Clark was lying in bed, and visiting with his in the room when CM arrived. 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 Clark has been accpeted at [facility] and is still awaiting a bed. He has been NPO since overnight. Clark states he has a headache today, he was observed holding an ice pack ontop of his head. CM will continue to follow. Discharge Potential Discharge Needs: PCP F/U Appt Anticipated Barriers to Discharge: Medical Status Patient/Family Education Needs: Review discharge instructions, discuss Ask Me Three Transportation: EMS Plan: Anticipate Clark will be transferred to [facility] for cardiac cauterization placement once there is an available bed, he will be transported by EMS. CM will continue to follow. Social Determinants of Health Screening Social Determinants of health last assessed in clinic: 10/29/24 Will the Patient Participate in the Screening?: Yes Do you worry about having a steady place to live?: no Problems where you live: no known problems In the past 12 months, have you had to go without electric, gas, oil or water in your home?: no 1. Within the past 12 months, we worried whether our food would run out before we got money to buy more.: Don't know/refused 2. Within the past 12 months, the food we bought just didn't last and we didn't have money to get more.: Don't know/refused Has lack of transportation kept you from medical appointments or from doing things needed for daily living?: no Has anyone in your life made you feel unsafe or unsupported?: no How hard is it for you to pay for the very basics like food, housing, medical care, and heating? Would you say it is:: Not hard at all Do you want help finding or keeping work or a job?: I do not need or want help If for any reason you need help with day-to-day activities such as bathing, preparing meals, shopping, managing finances, etc., do you get the help you need?: I don?t need any help How often do you feel lonely or isolated from those around you?: Never Do you speak a language other than Latvian at home?: No Does the patient want assistance with any of the above?: No
[2024-10-29 12:01] LABS: Troponin I 9 ng/L (<or=76)
--- NOTE | 2024-10-29 13:23 | DSE_ITS ---
Date of service: 10/29/24 Time of Service: 15:18 DS: Diagnosis Discharge Diagnosis (1) Chest pain: Status: Acute (2) HFrEF (heart failure with reduced ejection fraction): Status: Acute (3) Other and unspecified hyperlipidemia: Status: Chronic (4) Gastroesophageal reflux disease: Status: Chronic (5) Essential hypertension: Status: Chronic (6) DVT prophylaxis: Status: Acute (7) Discharge planning issues: Status: Acute Discharge Plan Disposition Patient Disposition: Transfer-Acute Inpatient Care Specific Acute Inpt Facility: [facility] Condition: Serious Discharge Details Reason For Visit: unstable angina Admit Date/Time: 10/27/24 11:32 Admit Provider: Lucio Odell Attending Provider: Lucio Odell Primary Care Provider: Kelvin Hicks Hospital Course Hospital Course: This 74-year-old male patient past medical history significant for coronary artery disease status post 6-7 stents, kidney disease, HFrEF, GERD, hypertension presented to the emergency department on 10/27/24 for evaluation of for complaints of chest pain with shortness of breath on exertion with resolution at rest starting several days prior to presentation. Chest pain and shortness of breath noted to progress as starting at rest and relieved with nitroglycerin in the ED. His workup in the emergency department showed EKG with normal sinus rhythm without acute ST segment elevation with positive ST depression in his lateral leads V4 through V6 and very subtle depression in his inferior limb leads. Serial troponins remained negative without significant lab abnormalities. Cardiology at [facility] with recommendations to start on Imdur 30 mg daily, hold lisinopril and transfer. Patient accepted by Dr. Rogers with recommendation for echocardiagram pending bed availability. The patient was admitted by the hospitalist to the medical surgical floor with telemetry for unstable angina. Multiple episode of chest pain occurring at night at rest with escalation in care with Nitroglycerin SL and later onging nitropaste on the second night; this was discussed with Dr. Dennis by Dr. Juarez with recommendation for ICU transfer and nitroglycerin drip for reoccuring chest pain. Patient mention escalation in symptomatology with nausea, left jaw and neck tightness, tingling to extremities; all resolving with resolution of chest pain; lingering distal sternum/ epigastric pain ultimately resoling. EKG's remained negative for coronary occlusion with improving ST depressions; increased PVC's / bigeminy during chest pain episodes w/o tachycardia, troponins remained negative. Echocardiogram completed: Mildly dilated left ventricle. Ejection fraction is 35 to 40%. There is global hypokinesis Normal right ventricular size and function Both atria are normal in size There are no structural or hemodynamically significant valvular abnormalities Now on Jardiance. The patient is hemodynamically stable and chest pain free and will be transferred to [facility] cardiology service as per bed assignment. Discussed with Dr. Odell Lyman Meds and New Rx's Prescriptions: New aspirin 81 mg Tablet,Delayed Release (Dr/Ec) 81 mg PO DAILY Qty: 30 0RF Jardiance 10 mg Tablet 10 mg PO QAM Qty: 30 0RF enoxaparin 40 mg/0.4 mL Syringe 40 mg SC DAILY Qty: 4 0RF isosorbide mononitrate 30 mg Tablet Extended Release 24 Hr 30 mg PO DAILY Qty: 30 0RF nitroglycerin [Nitro-Bid] 2 % Ointment 1,000 mg topical Q6H Qty: 30 0RF polyethylene glycol 3350 17 gram Powder In Packet 17 g PO DAILY PRN PRN (Reason: Constipation) Qty: 14 0RF sodium chloride 0.9 % (flush) [BD PosiFlush Normal Saline 0.9] Syringe 2 ml IVP BID Qty: 5 0RF Continued nitroglycerin [Nitrostat] 0.4 mg tablet, sublingual 0.4 mg Sublingual Q5M PRN (Reason: chest pain) Qty: 30 12RF Rx Instructions: Call EMS if needed, up to 3 doses. amlodipine 5 mg tablet 5 mg PO DAILY Qty: 90 3RF metoprolol succinate 100 mg tablet extended release 24 hr 100 mg PO DAILY Qty: 90 3RF pantoprazole [Protonix] 40 mg tablet,delayed release (DR/EC) 40 mg PO DAILY Qty: 90 3RF rosuvastatin 10 mg tablet 10 mg PO DAILY Qty: 90 3RF glucosam-chond [id number] ac 1 EACH capsule 1 ea PO BID Rx Instructions: takes 2 caps qd acetaminophen 500 mg tablet 1,500 mg PO BID PRN (Reason: pain) Qty: 270 3RF Rx Instructions: for musculoskeletal discomfort - TDD ~ 3,900mg Held lisinopril 10 mg tablet 10 mg PO DAILY Qty: 90 3RF Hold Instructions: Resume on 09/25/25. Held on 10/27/24 as per [facility] cardiology on admit ---HFrEF 35-40% on 10/27/24 - Consider GDMT with Entresto aspirin 325 mg tablet 325 mg PO DAILY Qty: 90 3RF Hold Instructions: Resume on 11/20/24. Discharge Instructions Referrals: Kelvin Hicks DO [Primary Care Provider, Medicine] Referral Note: follow-up with PCP within7 to 10 days please Activity:: bed rest BRP Equipment/Supplies:: No Equipment Needed Diet:: NPO Discharge Orders Discharge Orders: Discharge Order (Routine); Ordered 10/29/24 Ordered By: Lorelei Perkins DS: Summary Time Spent with Patient providing and/or coordinating discharge services: Greater than 30 minutes Status at Discharge Functional status at discharge: independent ambulation Overall status at discharge: patient is not back to baseline Mental Status: mental status grossly normal Speech and Movement: speech and movement normal Mood: congruent mood and anxious mood Affect: normal affect and anxious affect Exam Narrative Exam Narrative: 74 years old male looking younger than stated age no acute distress , neurologic alert oriented w/o focal deficit, nonicteric noninjected sclera , no JVD cardiovascular regular rate and rhythm, tele SR with PVC's, no murmurs, respirations even and unlabored w clear bilateral breath sounds , abdomen is soft nontender moves all extremities equally no peripheral edema psychiatric appropriate mood and affect Psych Mental Status: mental status grossly normal Speech and Movement: speech and movement normal Mood: congruent mood and anxious mood Affect: normal affect and anxious affect DS: Data Vitals/I&O Vitals and I&O: Vital Signs Temperature 36.0 C L 10/29/24 07:49 Temperature Source Temporal Artery Scan 10/29/24 07:49 Pulse 60 10/29/24 07:49 Pulse 65 10/27/24 12:21 Respiratory Rate 16 10/29/24 07:49 Respiratory Effort Normal 10/27/24 12:54 Respiratory Depth Normal 10/27/24 12:54 Respiratory Pattern Normal 10/27/24 12:54 Blood Pressure 132/86 10/29/24 07:49 Blood Pressure Mean 101 10/29/24 07:49 Blood Pressure Position Supine 10/27/24 06:16 Pulse Oximetry 94 10/29/24 07:49 Oxygen Delivery Method Room Air 10/29/24 07:49 Oxygen Flow Rate 0 10/29/24 07:49 Pain Level 2 10/29/24 11:21 Intake & Output 10/28/24 10/29/24 10/29/24 23:59 11:59 23:59 Intake Total 250 / 1170 Output Total Balance 250 / 970 -1 Intake: IV Oral 240 / 1160 Output: Stool Other: Comment Pt reports voiding to toilet independently, not measured. Data Completed and Pending Labs on day of discharge: Labs from last 24 hours 10/29/24 10/29/24 10/29/24 11:30 06:08 04:15 WBC 10.19 RBC 4.96 Hgb 15.0 Hct 44.4 MCV 90 MCH 30.2 MCHC 33.8 RDW 11.7 L Plt Count 228 MPV 9.2 Immature Gran % 0.4 Neutrophils % 68.2 Lymphocytes % 19.5 Monocytes % 8.7 Eosinophils % 2.7 Basophils % 0.5 Nucleated RBC % 0.0 Absolute Neutrophils 6.94 H Absolute Lymphocytes 1.99 Absolute Monocytes 0.89 H Absolute Eosinophils 0.28 Absolute Basophils 0.05 Sodium 140 Potassium 4.2 Chloride 103 Carbon Dioxide 24.8 Anion Gap 12.2 H BUN 35 H Creatinine 1.3 Est GFR (CKD-EPI 2020) 58.37 Glucose 92 Calcium 9.2 Troponin I 9 9 11 PFSH All Active Problems (Updated 10/28/24 @ 09:40 by Lorelei Perkins APRN) HFrEF (heart failure with reduced ejection fraction) (Acute) Unstable angina (Acute) Discharge planning issues (Acute) DVT prophylaxis (Acute) Chest pain (Acute) 12/04/18- cardiac catheterization. [facility] Mamadou Gordon MD BPPV (benign paroxysmal positional vertigo) (Acute) 10/15/24. [facility] Physical Therapy. Combined forms of age-related cataract, left eye (Acute) Positive self-administered antigen test for COVID-19 (Acute) Chronic kidney disease (CKD) (Chronic) Nocturnal leg cramps (Acute) Cervicalgia (Acute) Hyperlipidemia (Acute) Systolic dysfunction (Acute) EF 50-55% Other and unspecified hyperlipidemia (Chronic 05/28/12) LDL baseline 167 Gastroesophageal reflux disease (Chronic 02/25/03) EGD Dr Rapp ([facility]) 2003; senior care PPI Essential hypertension (Chronic 11/28/12) Cor athrscl-uns vessel (Chronic 06/09/07) 2 CHIQUITA stents RCA 05/2007; and one RCA 03/2010; Heitzman 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 Tinajero imiquimod cream, excessive reaction Irritant dermatitis (Acute 01/28/14) Dr. Tinajero rgt anterior tovar Chronic rhinitis (Acute 05/04/11) Benign prostatic hyperplasia (Acute 03/12/13) Medical History (Updated 10/28/24 @ 09:40 by Lorelei Perkins APRN) Anxiety CAD (coronary artery disease) Surgical History [place] heart [place] [place] cont lesion; ,mid 1 RCA lesion Social History Smoking/Tobacco Use Status: Never Smoking risk assessment performed?: Yes Alcohol Intake: current Alcohol Intake frequency: a few times a month Alcohol type: beer Drug use: Never Substance use type: does not use Adopted: Yes Caregiver/Support person: No Household members: spouse Housing: house Number of Children: 2 number of grandchildren: 2 Communication Needs: None Do you need help understanding health information?: Rarely 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 Pets and animals: Yes Pets and animals: cat(s) and horse(s) What is your relationship status?: Panel score (0-1 are the most socially isolated patients): 1 What type of physical activity do you participate in: walking Frequency: 3-4 times per week Seatbelt use: always Helmet use: Yes Drive intox or ride w/intox driver license technician: No Water heater temp set <120 deg: Yes Working smoke detector in home: Yes Fire extinguisher in home: Yes Carbon monox detector in home: Yes Do you feel safe at home: Yes Do you feel safe in your relationship?: Yes Victim of physical abuse: No Victim of emotional abuse: No Victim of sexual abuse: No Time Spent with Patient Time Spent with Patient: 70-84 minutes4 Time was spent: preparing to see the patient(eg.review tests), obtaining and/or reviewing separately otained hiistory, ordering medications,tests, procedures, referring, communicating with other health pet care assistant, indepentently interpreting results, counseling the patient, care coordination and other
--- NOTE | 2024-10-29 15:10 | NUR.NOTE ---
Nursing Note: Patient has been assigned a bed at [id number]; Report called to Nurse Jocelyn RN at 1453. Patient and family updated.
--- NOTE | 2024-10-29 15:42 | PDOC.CMDIS ---
Date of service: 10/29/24 Time of Service: 15:45 LACE Index Scoring Tool Questions: Length of Stay (in days): 2 Was the patient admitted via the E.D.?: Yes Comorbidities: Congestive Heart Failure and Liver or Renal Disease E.D. Visits: 1 Answers: Total Score: 11 Risk of Readmission: High Risk Care Management Discharge Plan Reason for Hospitalization: unstable angina Discharge Plan: Clark will be transferred to [facility] [place] cardiac cauterization placement once there is an available bed, he will be transported by EMS. Patient/Family Education Needs: review of discharge instructions, activitly, limitations, and plan of care. Discuss Ask me three
== END 2024-10-29 16:46 | disposition short-term general hospital (02) ==
LOC: ER 11:27 → MS 12:40
PROVIDERS: Emergency Medicine; Family Medicine; Nurse Practitioner Acute Care; Admitting Provider Hospitalist; Emergency Provider Emergency Medicine; PCP Family Medicine; Responsible Provider Nurse Practitioner Acute Care; Visit Provider Hospitalist
DX: I25.110 Atherosclerotic heart disease of native coronary artery with unstable angina pectoris (principal); E78.5 Hyperlipidemia, unspecified; I50.20 Unspecified systolic (congestive) heart failure; K21.9 Gastro-esophageal reflux disease without esophagitis; I13.0 Hypertensive heart and chronic kidney disease with heart failure and stage 1 through stage 4 chronic kidney disease, or unspecified chronic kidney disease; N18.9 Chronic kidney disease, unspecified; Z95.5 Presence of coronary angioplasty implant and graft; N40.1 Benign prostatic hyperplasia with lower urinary tract symptoms; N13.8 Other obstructive and reflux uropathy; M54.42 Lumbago with sciatica, left side; F41.9 Anxiety disorder, unspecified
CPT/HCPCS: 00123; 36415; 80048; 80053; 93005; 93306; 96372; 99291; J1650; 71045; 83735; 83880; 84484; 85025; 85379; 93010; 99222; 99233; 99239; G0378

== ENCOUNTER 2024-11-16 11:00 | Outpatient (RCR) | payer MEDICARE, OTHER, SELFPAY ==
--- NOTE | 2024-11-16 10:30 | RT.EKG_ITS ---
APPROVED REPORT Exam: Resting ECG Reason for Exam: Cardiac Rehab Baseline Patient Location: O HR:70 bpm ECG Measurements Heart Rate 70 AXIS NV 136 P 36 QRSd 94 QRS 0 QT 384 T 61 QTc 415 Conclusion Sinus rhythm...normal P axis, V-rate 50- 99 Ventricular bigeminy...bigeminy string>4 w/ V complexes Anterior infarct, old...Q >40mS, abnormal ST-T, V2-V5
== END 2024-11-24 23:59 | disposition home or self-care (01) ==
LOC: CR 11:00
PROVIDERS: PCP Family Medicine; Visit Provider Internal Medicine Cardiovascular Disease
DX: I21.4 Non-ST elevation (NSTEMI) myocardial infarction (principal); Z51.89 Encounter for other specified aftercare
CPT/HCPCS: S9472

== ENCOUNTER → 2024-11-20 09:26 | Outpatient (BNVA) | payer MEDICARE, OTHER, SELFPAY | PROVIDERS: PCP Family Medicine; Visit Provider Internal Medicine Cardiovascular Disease | DX: I25.10 Atherosclerotic heart disease of native coronary artery without angina pectoris (principal); I42.9 Cardiomyopathy, unspecified; Z79.02 Long term (current) use of antithrombotics/antiplatelets; I50.9 Heart failure, unspecified | CPT/HCPCS: 99214 ==

== ENCOUNTER 2024-11-23 08:00 | Outpatient (RCR) | payer MEDICARE, OTHER, SELFPAY | END 2024-11-24 23:59 | disposition home or self-care (01) | LOC: CR 08:00 | PROVIDERS: PCP Family Medicine; Visit Provider Internal Medicine Cardiovascular Disease | DX: I25.110 Atherosclerotic heart disease of native coronary artery with unstable angina pectoris (principal); Z51.89 Encounter for other specified aftercare | CPT/HCPCS: S9472 ==

== ENCOUNTER 2024-12-25 08:00 | Outpatient (RCR) | payer MEDICARE, OTHER, SELFPAY | END 2024-12-25 23:59 | disposition home or self-care (01) | LOC: CR 08:00 | PROVIDERS: PCP Family Medicine; Visit Provider Internal Medicine Cardiovascular Disease | DX: I21.4 Non-ST elevation (NSTEMI) myocardial infarction (principal); Z98.61 Coronary angioplasty status; Z51.89 Encounter for other specified aftercare | CPT/HCPCS: S9472 ==

== ENCOUNTER 2025-01-09 05:51 | Inpatient (IN) | payer MEDICARE, OTHER, SELFPAY ==
[2025-01-09] VITALS (11 sets, daily range): BP systolic 105–154; BP diastolic 66–94; PULSE 51–90; RESP 15–29; TEMP 36.1–36.5; O2SAT 95–99
--- NOTE | 2025-01-09 05:45 | RT.EKG_ITS ---
APPROVED REPORT Exam: Resting ECG Reason for Exam: Patient Location: E HR:84 bpm ECG Measurements Heart Rate 84 AXIS MO 153 P 26 QRSd 94 QRS -8 QT 382 T 77 QTc 451 Conclusion Sinus rhythm...normal P axis, V-rate 60- 99 Ventricular bigeminy...bigeminy string>4 w/ V complexes Anterior infarct, old...Q >40mS, abnormal ST-T, V2-V5 Physician: PVC's, no stemi, unchanged from prior
--- NOTE | 2025-01-09 06:00 | DI.RAD_ITS ---
Exam(s) XR PORTABLE CHEST AP EXAM: XR PORTABLE CHEST AP CLINICAL HISTORY: chest pain. TECHNIQUE: 2D digital imaging was performed. COMPARISON: CR,XR XR PORTABLE CHEST AP from 10/27/2024 FINDINGS: Single AP portable view. Heart size is upper normal. The mediastinum is not widened. Lungs are clear. No infiltrates nor obvious pleural effusions. IMPRESSION: No acute pulmonary findings on this single AP portable view of the chest. DATA REPOSITORY: RADIATION DOSE DELIVERED:
--- NOTE | 2025-01-09 06:05 | ED.GENADUL_ITS ---
Discharge Plan Discharge Details Chief Complaint: Chest Pain Clinical Impression: Unstable angina Primary Care Provider: Kelvin Hicks ED Provider: John Robins Home Meds and New Rx's Prescriptions: No Action nitroglycerin [Nitrostat] 0.4 mg tablet, sublingual 0.4 mg Sublingual Q5M PRN (Reason: chest pain) Qty: 30 12RF Rx Instructions: Call EMS if needed, up to 3 doses. amlodipine 5 mg tablet 5 mg PO DAILY Qty: 90 3RF metoprolol succinate 100 mg tablet extended release 24 hr 100 mg PO DAILY Qty: 90 3RF pantoprazole [Protonix] 40 mg tablet,delayed release (DR/EC) 40 mg PO DAILY Qty: 90 3RF clopidogrel 75 mg tablet 75 mg PO DAILY glucosam-chond uq-tkvehx-nz ac 1 EACH capsule 1 ea PO BID Rx Instructions: takes 2 caps qd acetaminophen 500 mg tablet 1,500 mg PO BID PRN (Reason: pain) Qty: 270 3RF Rx Instructions: for musculoskeletal discomfort - TDD ~ 3,900mg aspirin 325 mg tablet 325 mg PO DAILY Qty: 90 3RF sacubitril-valsartan 24-26 mg tablet 1 tab PO BID Qty: 180 3RF HPI General Date/Time Provider Initiated Documentation: 01/09/25 05:54 . HPI Narrative: This is a very pleasant 74-year-old male with a past medical history of coronary artery disease with multiple stents (>5), reduced ejection fraction of 35 to 40%, BPH status post laser treatment, hypertension, CKD, high cholesterol, who presents today for evaluation of chest pain. Historically the patient has had multiple stents, and more recently on 10/31/2024 the patient had chest pain, cardiac catheterization showed 98% proximal D2 occlusion, 2 attempts were made for stenting which failed secondary to vessel tortuosity, and so angioplasty was performed. He has been on dual antiplatelet therapy since then. He has had no recurrence of chest pain or shortness of breath since then until today, when he began having symptoms at around 8 PM. The symptoms felt similar to a elephant sitting on his chest. He took nitroglycerin and they went away immediately. He had a few more episodes throughout the night, all of which resolved with nitroglycerin. Of note he performed exercise testing at cardiac rehab 24 hours ago and had no exertional chest pain or heaviness at that time. Currently he is chest pain-free and denies any heavy sensation, stating that the last nitroglycerin he took a few hours ago resulted. He denies any other complaints at this time. He states he has been taking his medications as directed. No other modifying factors. Related Data Home Medications Medication Instructions Recorded Confirmed plibxqmyno-vfnrunxuwb-uvnidfnl-hyalur 1 ea PO BID 04/2601/09/25 ac 375 mg-300 mg-175 mg-2 mg cap acetaminophen 500 mg tablet 1,500 mg (3 x 500 mg) PO B ID PRN 08/17/21 01/09/25 pain #270 tab-caps aspirin 325 mg tablet 325 mg PO DAILY #90 tabs 01/09/25 amlodipine 5 mg tablet 5 mg PO DAILY #90 tabs 08/1001/09/25 metoprolol succinate 100 mg 100 mg PO DAILY #90 tabs 0 08/10/24 01/09/25 tablet,extended release 24 hr pantoprazole 40 mg tablet,delayed 40 mg PO DAILY #90 t abs 08/10/24 01/09/25 release (Protonix) nitroglycerin 0.4 mg sublingual 0.4 mg sublingual Q5M PRN chest 10/13/24 01/09/25 tablet (Nitrostat) pain #30 tabs clopidogrel 75 mg tablet 75 mg PO DAILY 11/02/2412/26 sacubitril 24 mg-valsartan 26 mg 1 tab PO BID #180 tab s 12/04/24 01/09/25 tablet Previous Rx's Medication Instructions Recorded acetaminophen 500 mg tablet 1,500 mg (3 x 500 mg) PO B ID PRN 08/17/21 pain #270 tab-caps aspirin 325 mg tablet 325 mg PO DAILY #90 tabs amlodipine 5 mg tablet 5 mg PO DAILY #90 tabs 08/10 metoprolol succinate 100 mg 100 mg PO DAILY #90 tabs 0 08/10/24 tablet,extended release 24 hr pantoprazole 40 mg tablet,delayed 40 mg PO DAILY #90 t abs 08/10/24 release (Protonix) nitroglycerin 0.4 mg sublingual 0.4 mg sublingual Q5M PRN chest 08/19/25 tablet (Nitrostat) pain #30 tabs sacubitril 24 mg-valsartan 26 mg 1 tab PO BID #180 tab s 12/04/24 tablet Allergies Allergy/AdvReac Type Severity Reaction Status Date / Time iohexol (From Omnipaque) Allergy Intermediate RASH HEAD Verified 01/09/25 06:01 TO TOE atorvastatin Allergy Unknown Skin Rash Verified 01/09/25 06:01 avocado AdvReac Severe Anaphylaxis Verified 01/09/25 06:01 melatonin AdvReac Intermediate Hives Verified 01/09/25 06:01 General Stated Complaint: Chest Pain MORRIS: 3 Exam Narrative Exam Narrative: 1.Const: Well-nourished, Well-developed, appearing stated age 2.Eyes: PERRL, no conjunctival injection, and symmetrical lids. 3.ENT: Atraumatic external nose and ears. Moist MM. Neck: Symmetric, trachea midline, No thyromegaly. 4.CVS: +S1/S2, Peripheral pulses 2+ and equal in all extremities. Brisk capillary refill in all extremities. 5.RESP: Unlabored respiratory effort. Clear to auscultation bilaterally. No wheezes rales or rhonchi 6.GI: Soft, Nontender/Nondistended, No hepatosplenomegaly. No guarding or rebound. 7.MSK: Normocephalic/Atraumatic, Extremities w/o deformity or ttp No cyanosis or clubbing, Normal movement of all extremities 8.Skin: Warm, Dry. No rashes or lesions. 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 Sensation grossly intact, no focal neurologic deficits. 10.Psych: (AAO) x3. Appropriate mood and affect Course Vital Signs Vital signs: Vital Signs Temperature 36.2 C L 01/09/25 05:54 Pulse 73 01/09/25 05:54 Respiratory Rate 18 01/09/25 05:54 Blood Pressure 154/78 H 01/09/25 05:54 Pulse Oximetry 98 01/09/25 05:54 Temperature 36.2 C L 01/09/25 05:54 Temperature Source Temporal Artery Scan 01/09/25 05:54 Pulse 73 01/09/25 05:54 Respiratory Rate 18 01/09/25 05:54 Respiratory Effort Non-Labored 01/09/25 05:55 Blood Pressure 154/78 H 01/09/25 05:54 Pulse Oximetry 98 01/09/25 05:54 Oxygen Delivery Method Room Air 01/09/25 05:54 Oxygen Flow Rate 0 01/09/25 05:54 Pain Level 6 01/09/25 05:54 Medical Decision Making This is a very pleasant 74-year-old male with a past medical history of coronary artery disease with multiple stents (>5), reduced ejection fraction of 35 to 40%, BPH status post laser treatment, hypertension, CKD, high cholesterol, who presents today for evaluation of chest pain. Historically the patient has had multiple stents, and more recently on 10/31/2024 the patient had chest pain, cardiac catheterization showed 98% proximal D2 occlusion, 2 attempts were made for stenting which failed secondary to vessel tortuosity, and so angioplasty was performed. He has been on dual antiplatelet therapy since then. He has had no recurrence of chest pain or shortness of breath since then until today, when he began having symptoms at around 8 PM. The symptoms felt similar to a elephant sitting on his chest. He took nitroglycerin and they went away immediately. He had a few more episodes throughout the night, all of which resolved with nitroglycerin. Of note he performed exercise testing at cardiac rehab 24 hours ago and had no exertional chest pain or heaviness at that time. Currently he is chest pain-free and denies any heavy sensation, stating that the last nitroglycerin he took a few hours ago resulted. He denies any other complaints at this time. He states he has been taking his medications as directed. No other modifying factors. The patient's physical exam demonstrates well-appearing male, vital signs stab le, pulses equal. No chest pain or discomfort at this time. EKG shows no evidence of STEMI, multiple PVCs, but this appears quite unchanged compared to prior EKG from a few months ago. Differential is high for unstable angina, especially with his known history. On review of prior ED visits it appears that even though he has significant disease he has never had a troponin bump or significant EKG changes despite having the severe disease requiring stenting. We will evaluate for concerning etiologies, will get chest x-ray labs, he has received aspirin already. Will monitor closely and reassess. 7:24 AM Patient remains chest pain-free. Initial troponin is normal at 4. Electrolytes normal, CBC normal. Pending chest x-ray results. EKG stable. Pending callback from [facility], however they did state that they are full and listing. Patient will likely be candidate for admission/observation here until transfer is available. Diagnosis at this time is unstable angina. PFSH All Active Problems (Updated 01/09/25 @ 07:27 by John Robins DO) Unstable angina (Acute) Cardiomyopathy (Acute) S/P angioplasty (Acute) POBA at [facility] on 10/30/2024 by Len Warren MD HFrEF (heart failure with reduced ejection fraction) (Acute) Unstable angina (Acute) BPPV (benign paroxysmal positional vertigo) (Acute) 10/15/24. [facility]. 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 Tinajero imiquimod cream, excessive reaction Irritant dermatitis (Acute 01/28/14) Dr. Tinajero rgt anterior tovar Chronic rhinitis (Acute 05/04/11) Benign prostatic hyperplasia (Acute 03/12/13) Medical History (Updated 01/09/25 @ 07:27 by John Robins DO) Anxiety CAD (coronary artery disease) Surgical History History of heart artery stent 12/04/18-[facility]; mid TEODORA cont lesion; ,mid 1 RCA lesion Social History Smoking/Tobacco Use Status: Never Smoking risk assessment performed?: Yes Alcohol Intake: current Alcohol Intake frequency: a few times a month Alcohol type: beer Drug use: Never Substance use type: does not use Adopted: Yes Caregiver/Support person: No Household members: spouse Housing: house Number of Children: 2 number of grandchildren: 2 Communication Needs: None Do you need help understanding health information?: Rarely 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 Pets and animals: Yes Pets and animals: cat(s) and horse(s) What is your relationship status?: Panel score (0-1 are the most socially isolated patients): 1 What type of physical activity do you participate in: walking Frequency: 3-4 times per week Seatbelt use: always Helmet use: Yes Drive intox or ride w/intox stock driver: No Water heater temp set <120 deg: Yes Working smoke detector in home: Yes Fire extinguisher in home: Yes Carbon monox detector in home: Yes Do you feel safe at home: Yes Do you feel safe in your relationship?: Yes Victim of physical abuse: No Victim of emotional abuse: No Victim of sexual abuse: No
[2025-01-09 06:14] LABS: Abs Immature Grans 0.03 10^3/uL (0.0-0.06); HCT 48.4 % (40.0-50.0); HGB 16.1 g/dL (13.5-17.5); Immature Grans % 0.4 %; MCH 30.3 pg (27.0-33.0); MCHC 33.3 % (32.0-36.0); MCV 91 fL (80-95); MPV 9.5 fL (8.0-11.0); Platelet Count 186 10^3/uL (130-400); RBC 5.32 10^6/uL (4.36-5.78); RDW 12.4 % (11.8-14.1); RDW-SD 40.8 fL; WBC 7.45 10^3/uL (4.4-10.8)
[2025-01-09 06:29] LABS: INR 1.0 (0.9-1.1); PTT Activated 27.0 sec (20.6-30.2); Prothrombin Time 9.8 sec (9.1-11.1)
[2025-01-09 06:36] LABS: Troponin I 4 ng/L (<54)
[2025-01-09 06:37] LABS: ALT 21 U/L (10-49); AST 21 U/L (<34); Albumin 4.7 g/dL (3.4-5.0); Alkaline Phosphatase 72 U/L (46-116); Anion Gap 6.6 mmol/L (3-11); BUN 19 mg/dL (9-23); Bilirubin, Total 0.70 mg/dL (0.2-1.2); CO2 28.4 mmol/L (20.0-31.0); Calcium 9.6 mg/dL (8.3-10.6); Chloride 105 mmol/L (98-107); Glucose 100 mg/dL (74-106); Potassium 4.2 mmol/L (3.5-5.1); Sodium 140 mmol/L (136-145); Total Protein 7.5 g/dL (5.7-8.2)
[2025-01-09] MEDS: nitroGLYcerin 0.4 MG TAB (07:40)
[2025-01-09 07:55] LABS: Troponin I 4 ng/L (<54)
[2025-01-09] MEDS: Heparin in 0.45% NaCl 25,000 UNIT/250 ML BAG 9.5 UNIT IVINF (08:13)
--- NOTE | 2025-01-09 08:49 | DI.VRAD_ITS ---
PROCEDURE INFORMATION: Exam: XR Chest Exam date and time: 01/09/2025 7:17 AM Age: 74 years old Clinical indication: Other: Chest pain TECHNIQUE: Imaging protocol: Radiologic exam of the chest. Views: 1 view. COMPARISON: CR XR PORTABLE CHEST AP 10/27/2024 6:46 AM FINDINGS: Lungs: Unremarkable. No consolidation. Pleural spaces: Unremarkable. No pleural effusion. No pneumothorax. Heart/Mediastinum: Unremarkable. No cardiomegaly. Bones/joints: Unremarkable. IMPRESSION: No acute findings. Dictated and Authenticated by: Sanjuana Salas MD. Orderin Julienne Lopez MD
[2025-01-09 09:53] LABS: Troponin I 3 ng/L (<54)
[2025-01-09] MEDS: nitroGLYcerin 0.4 MG TAB SL (11:52)
--- NOTE | 2025-01-09 12:49 | W.PC.ACHO ---
Registration Status: ADM IN Primary Language: Preferred Language: Korean ED Information & Data Chief Complaint Chest Pain 01/09/25 06:08 Triage Note PT states that he has CP 01/09/25 05:54 that started at 2030. PT took a total of 5 nitro since last night. Medical / Surgical History (Last Updated 11/20/24 @ 09:56 by Rosalind Nguyen MD) Anxiety CAD (coronary artery disease) (Last Reviewed 11/20/24 @ 09:34 by Rosalind Nguyen MD) History of heart artery stent Most Recent Vital Signs Temperature 36.1 C L 01/09/25 11:26 Temperature Source Temporal Artery Scan 01/09/25 11:26 Pulse 67 01/09/25 11:26 Pulse Rhythm Regular 01/09/25 09:36 Pulse 81 01/09/25 07:46 Respiratory Rate 18 01/09/25 11:26 Respiratory Effort Normal 01/09/25 09:36 Respiratory Depth Normal 01/09/25 09:36 Respiratory Pattern Normal 01/09/25 09:36 Blood Pressure 116/86 01/09/25 11:26 Blood Pressure Mean 96 01/09/25 11:26 Pulse Oximetry 96 01/09/25 11:26 Oxygen Delivery Method Room Air 01/09/25 11:26 Oxygen Flow Rate 0 01/09/25 11:26 Pain Level 3 01/09/25 07:40 Allergies iohexol (From Omnipaque) Allergy (Intermediate, Verified 01/09/25 06:01) RASH HEAD TO TOE CARDIAC CATH REACTION atorvastatin Allergy (Unknown, Verified 01/09/25 06:01) Skin Rash avocado Adverse Reaction (Severe, Verified 01/09/25 06:01) Anaphylaxis melatonin Adverse Reaction (Intermediate, Verified 01/09/25 06:01) Hives Developed rash & hives; went away when he stopped taking Active Medications Generic Name Dose Route Start Last Admin Trade Name Freq PRN Reason Stop Dose Admin Amlodipine Besylate 5 mg 01/09/25 08:30 01/09/25 10:25 Amlodipine 5 Mg Tab PO Not Given DAILY [facility] Aspirin 325 mg 01/09/25 08:30 01/09/25 10:25 Aspirin 325 Mg Tab PO Not Given DAILY [facility] Clopidogrel Bisulfate 75 mg 01/09/25 08:30 01/09/25 10:25 Clopidogrel 75 Mg Tab PO Not Given DAILY [facility] Glucosamine/Chondroitin 1 cap 01/09/25 08:30 01/09/25 10:25 Glucosamine/Chondroitin Cap PO Not Given BID [facility] Heparin Sodium/Sodium Chloride 25,000 unit in 250 mls @ 0 mls/hr 01/09/25 08:00 01/09/25 09:30 IVINF 9.5 mls/hr INFUSION PRIMO 9.5 mls/hr Protocol Titration Per Protocol Metoprolol Succinate 100 mg 01/09/25 08:30 01/09/25 10:25 Metoprolol Cr 100 Mg Tabcr PO Not Given DAILY [facility] Nitroglycerin 0.4 mg 01/09/25 08:03 01/09/25 11:52 Nitroglycerin 0.4 Mg Tab SL 0.4 mg Q5 MIN PRN X3 PRN Administration Chest Pain Pantoprazole Sodium 40 mg 01/09/25 07:30 01/09/25 10:24 Pantoprazole 40 Mg Tabcr PO Not Given DAILY@0730 [facility] Sacubitril/Valsartan 1 each 01/09/25 08:30 01/09/25 10:25 Sacubitril/Valsartan 24 Mg/26 Mg Tab PO Not Given BID [facility] IV IV Catheter Type [Left Saline Lock Antecubital] IV Catheter Gauge [Left 18 Antecubital] Diet Orders Category Date Time Status Heart Healthy Eating [DIET] Nutrition 01/09/25 Lunch Active Diagnostics 01/09/25 01/09/25 01/09/25 Range/Units 09:30 07:25 06:07 WBC 7.45 (4.4-10.8) 10^3/uL RBC 5.32 (4.36-5.78) 10^6/uL Hgb 16.1 (13.5-17.5) g/dL Hct 48.4 (40.0-50.0) % MCV 91 (80-95) fL MCH 30.3 (27.0-33.0) pg MCHC 33.3 (32.0-36.0) % RDW 12.4 (11.8-14.1) % Plt Count 186 (130-400) 10^3/uL MPV 9.5 (8.0-11.0) fL Immature Gran % 0.4 % Neutrophils % 62.4 % Lymphocytes % 17.3 % Monocytes % 12.8 % Eosinophils % 6.6 % Basophils % 0.5 % Nucleated RBC % 0.0 (0.0-0.3) % Absolute Neutrophils 4.65 (1.2-6.7) 10^3/uL Absolute Lymphocytes 1.29 (1.2-3.4) 10^3/uL Absolute Monocytes 0.95 H (0.1-0.8) 10^3/uL Absolute Eosinophils 0.49 (0.0-0.7) 10^3/uL Absolute Basophils 0.04 (0.0-0.2) 10^3/uL PT 9.8 (9.1-11.1) sec INR 1.0 (0.9-1.1) APTT 27.0 (20.6-30.2) sec Sodium 140 (136-145) mmol/L Potassium 4.2 (3.5-5.1) mmol/L Chloride 105 (98-107) mmol/L Carbon Dioxide 28.4 (20.0-31.0) mmol/L Anion Gap 6.6 (3-11) mmol/L BUN 19 (9-23) mg/dL Creatinine 1.1 (0.73-1.18) mg/dL Est GFR (CKD-EPI 2020) 66.33 (mL/min/1.73m2) Glucose 100 (74-106) mg/dL Calcium 9.6 (8.3-10.6) mg/dL Total Bilirubin 0.70 (0.2-1.2) mg/dL AST 21 (<34) U/L ALT 21 (10-49) U/L Alkaline Phosphatase 72 (46-116) U/L Troponin I 3 4 4 (<54) ng/L NT-Pro-B Natriuret Pep 162 (<300) pg/mL Total Protein 7.5 (5.7-8.2) g/dL Albumin 4.7 (3.4-5.0) g/dL Intake and Output - 24 Hour Total 01/09/25 05:51 thru 01/09/25 10:16 Intake Total 252.192 Balance 252.192 Weight 78.925 kg Intake: IV 12.192 Oral 240 Other: Urine Appearance Clear Falls Risk Assessment History of Falls No History 01/09/25 09:36 Contributing Factors Medications 01/09/25 09:36 Ambulatory Aids Independent 01/09/25 09:36 Tubes/Lines W/no contributing factors 01/09/25 09:36 Gait Evaluation No gait disturbance 01/09/25 09:36 Cognition No cognitive impairment 01/09/25 09:36 Fall Total Score 13 01/09/25 09:36 Level of Risk Standard/Low Risk 01/09/25 09:36 Problems (Last Updated 11/20/24 @ 09:56 by Rosalind Nguyen MD) Unstable angina (Acute) Attestation Statement: By documenting the first initial, last name, and credentials of the reporting nurse below, both parties acknowledge that all relevant information regarding the patient handoff has been communicated, and that all questions have been addressed to ensure continuity and safety of care. Additional Patient Information/Comments: Pt complex cardiac hx, ambulates independently, continent of B&B. Heparin drip. Report Received From: Taylor Sexton ED RN @ [phone]. Melissa Phillips RN, settled patient on arrival.
--- NOTE | 2025-01-09 15:19 | INITIAL_ITS ---
Date of service: 01/09/25 Time of Service: 15:19 Care Management Initial Assmt Initial Assessment Reason for Hospitalization: chest pain Functional Status/Living Situation Patient Presentation: Clark was lying in bed visiting with his , Kortney, when CM met with him. They were both pleasant and engaged well in conversation. Per report, Clark has been accepted by [facility] in transfer, awaiting bed availability. Clark stated that he was recently hospitalized in October, and was transferred to [facility] at that time. He stated that he recently has been connected with the [place], and he is considered 100% disabled due to agent orange exposure, which he reported is the cause of his cardiac problems. CM notified [facility] of his [facility] affiliation. Clark stated that he was at cardiac rehab at [facility] yesterday and felt fine, but had chest pain again this morning, which is why he presented to the ED. Clark reported that he is independent at baseline, and retired from [employer]. He expressed understanding of his plan of care. CM will continue to follow. Town of Residence: [facility] Resides with: Spouse (, Kortney) Significant Other/Family: Local Natural Supports: , Kortney Employment Status: Retired Instrumental Activities of Daily Living (ADLs): Independent Medications Medication Management: No Issues/Barriers identified Advance Directives Advance Directives: Do you have an Advance Directive: Y Today, 05:51 AD On File at [facility]: Y Today, 05:51 Date Asked 01/23/24 10/27/24, 07:12 AD Date Reviewed 10/27/24 11/20/24, 09:26 COLST On File at [facility] COLST Date Scanned Code Status Resuscitation Status Full Code Insurance Coverage/Financial Issues Insurance: VALERY Landis [facility] supplement [place]- recent affiliation Care Team Visit Care Team Role Provider Type Kelvin Hicks, Primary Care Provider OSTEOPATHIC DOCTOR John Robins, DO Emergency Provider [facility] STAFF PHYSICIAN Mike Juarez Admit Provider [facility] STAFF PHYSICIAN Attending Provider Discharge Potential Discharge Needs: Other (coordinated transfer to tertiary facility) Anticipated Barriers to Discharge: Bed availability Patient/Family Education Needs: Review discharge instructions, discuss Ask Me Three Transportation: EMS Plan: Clark has been accepted in transfer by [facility], and is currently awaiting a bed to become available. Once a bed is secured, he will transport to [facility] by EMS. He will follow up with his PCP and discharge plan of care. CM will continue to follow. Social Determinants of Health Screening Social Determinants of health last assessed in clinic: 01/09/25 Will the Patient Participate in the Screening?: Yes Do you worry about having a steady place to live?: no Problems where you live: no known problems In the past 12 months, have you had to go without electric, gas, oil or water in your home?: no 1. Within the past 12 months, we worried whether our food would run out before we got money to buy more.: Don't know/refused 2. Within the past 12 months, the food we bought just didn't last and we didn't have money to get more.: Don't know/refused Has lack of transportation kept you from medical appointments or from doing things needed for daily living?: no Has anyone in your life made you feel unsafe or unsupported?: no How hard is it for you to pay for the very basics like food, housing, medical care, and heating? Would you say it is:: Not hard at all Do you want help finding or keeping work or a job?: I do not need or want help If for any reason you need help with day-to-day activities such as bathing, preparing meals, shopping, managing finances, etc., do you get the help you need?: I don’t need any help How often do you feel lonely or isolated from those around you?: Never Do you speak a language other than Palestinian at home?: No Does the patient want assistance with any of the above?: No PFSH All Active Problems (Updated 01/09/25 @ 07:27 by John Robins DO) Unstable angina (Acute) Cardiomyopathy (Acute) S/P angioplasty (Acute) POBA at [facility] on 10/30/2024 by Len Warren MD HFrEF (heart failure with reduced ejection fraction) (Acute) Unstable angina (Acute) BPPV (benign paroxysmal positional vertigo) (Acute) 10/15/24. [facility] Physical Therapy. 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 Tinajero imiquimod cream, excessive reaction Irritant dermatitis (Acute 01/28/14) Dr. Tinajero rgt anterior tovar Chronic rhinitis (Acute 05/04/11) Benign prostatic hyperplasia (Acute 03/12/13) Medical History (Updated 01/09/25 @ 07:27 by John Robins DO) Anxiety CAD (coronary artery disease) Surgical History History of heart artery stent 12/04/18-[facility] [place]; mid TEODORA cont lesion; ,mid 1 RCA lesion Social History Smoking/Tobacco Use Status: Never Smoking risk assessment performed?: Yes Alcohol Intake: current Alcohol Intake frequency: a few times a month Alcohol type: beer Drug use: Never Substance use type: does not use Adopted: Yes Caregiver/Support person: No Household members: spouse Housing: house Number of Children: 2 number of grandchildren: 2 Communication Needs: None Do you need help understanding health information?: Rarely 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 Pets and animals: Yes Pets and animals: cat(s) and horse(s) What is your relationship status?: Panel score (0-1 are the most socially isolated patients): 1 What type of physical activity do you participate in: walking Frequency: 3-4 times per week Seatbelt use: always Helmet use: Yes Drive intox or ride w/intox livery car driver: No Water heater temp set <120 deg: Yes Working smoke detector in home: Yes Fire extinguisher in home: Yes Carbon monox detector in home: Yes Do you feel safe at home: Yes Do you feel safe in your relationship?: Yes Victim of physical abuse: No Victim of emotional abuse: No Victim of sexual abuse: No
--- NOTE | 2025-01-09 15:59 | W.PM.HP.N ---
Date of service: 01/09/25 Time of Service: 14:35 Assessment and Plan Assessment and plan (1) Unstable angina: Status: Acute Assessment and plan: Known CAD with pattern of chest pain c/w unstable angina. EKG/troponins reassuring but he has had similar presentation of CAD with normal troponin and non-diagnostic EKGs in the past. Responds to NTG, currently no pain on ASA/clopidogrel and heparin drip. Has bed tomorrow. (2) HFrEF (heart failure with reduced ejection fraction): Status: Acute Assessment and plan: Continue outpatient GDMT (3) CAD (coronary artery disease): Assessment and plan: History reviewed. On DAPT and high intensity statin since October. (4) Gastroesophageal reflux disease: Status: Chronic Assessment and plan: continue pantoprazole (5) Chronic kidney disease (CKD): Status: Chronic Assessment and plan: Borderline CKD3a, at baseline GFR around 60 (6) Benign prostatic hyperplasia: Status: Acute Assessment and plan: Minimal symptoms since laser ablation without meds. History of Present Illness History of Present Illness Chief Complaint: chest pain Narrative: 74-year-old male patient past medical history significant for coronary artery disease status post multiple stents with known 98% stenosis of D2 branch of LAD s/p angioplasty 10/30/24, HFrEF LVEF 35-40%, borderline CKD3a, GERD, hypertension presented to the emergency department early in the morning 01/09 with recurrent chest pain. He had felt well 01/08 including working out for an hour with cardiac rehabilitation. Pain onset was at rest, lying in bed reading about 9pm. Pain substernal, sharp moderate/severe pain with pressure. It was associated with SOB, lightheadness. No nausea, palpitations, or diaphoresis. This is a little different from previous chest pain. It lasted about 10-15 minutes and went away after two NTG. Since then it has recurred several times last 1-5 minutes and resolving with NTG and/or rest. Just going to the bathroom and back to bed here triggered an episode that radiated to his neck and out his ears but again resolved with a SL NTG and rest. He has not missed medication doses. He recently increased his rosuvastatin from 10mg to 20mg and transitioned from lisinpril to Entresto. In ED he was started on heparin drip for unstable angina. Review of Systems All systems reviewed & are unremarkable except as noted in HPI and below Gastrointestinal Comments: has some chronic heartburn and constipation, but had BM x 2 this am after taking miralax last night. PFSH All Active Problems Unstable angina (Acute) Cardiomyopathy (Acute) S/P angioplasty (Acute) POBA at [facility] [place] on 10/30/2024 by Len Warren MD HFrEF (heart failure with reduced ejection fraction) (Acute) Unstable angina (Acute) BPPV (benign paroxysmal positional vertigo) (Acute) 10/15/24. [facility] Therapy. 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 Tinajero imiquimod cream, excessive reaction Irritant dermatitis (Acute 01/28/14) Dr. Tinajero rgt anterior tovar Gastroesophageal reflux disease (Chronic 02/25/03) EGD Dr Rapp ([facility] [place]) 2003; assisted PPI Essential hypertension (Chronic 11/28/12) Cor athrscl-uns vessel (Chronic 06/09/07) 2 CHIQUITA stents RCA 05/2007; and one RCA 03/2010; [place] Chronic rhinitis (Acute 05/04/11) Benign prostatic hyperplasia (Acute 03/12/13) 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) Medical History Anxiety CAD (coronary artery disease) Surgical History [place] [place] cont lesion; ,mid 1 RCA lesion Social History Smoking/Tobacco Use Status: Never Smoking risk assessment performed?: Yes Alcohol Intake: current Alcohol Intake frequency: a few times a month Alcohol type: beer Drug use: Never Substance use type: does not use Adopted: Yes Caregiver/Support person: No Household members: spouse Housing: house Number of Children: 2 number of grandchildren: 2 Communication Needs: None Do you need help understanding health information?: Rarely 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 Pets and animals: Yes Pets and animals: cat(s) and horse(s) What is your relationship status?: Panel score (0-1 are the most socially isolated patients): 1 What type of physical activity do you participate in: walking Frequency: 3-4 times per week Seatbelt use: always Helmet use: Yes Drive intox or ride w/intox pizza 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 driver: No Water heater temp set <120 deg: Yes Working smoke detector in home: Yes Fire extinguisher in home: Yes Carbon monox detector in home: Yes Do you feel safe at home: Yes Do you feel safe in your relationship?: Yes Victim of physical abuse: No Victim of emotional abuse: No Victim of sexual abuse: No Meds Allergies and Home Medications Allergies Allergy/AdvReac Type Severity Reaction Status Date / Time iohexol (From Omnipaque) Allergy Intermediate RASH HEAD Verified 01/09/25 06:01 TO TOE atorvastatin Allergy Unknown Skin Rash Verified 01/09/25 06:01 avocado AdvReac Severe Anaphylaxis Verified 01/09/25 06:01 melatonin AdvReac Intermediate Hives Verified 01/09/25 06:01 Home Medications Medication Instructions Recorded Confirmed Type gwglaukgeu-ysggntymvy-abiyylji-hyalur 1 ea PO BID 05/23/12 01/09/25 History ac 375 mg-300 mg-175 mg-2 mg cap acetaminophen 500 mg tablet 1,500 mg (3 x 500 mg) PO BID PRN 08/17/21 01/09/25 Rx pain #270 tab-caps aspirin 325 mg tablet 325 mg PO DAILY #90 tabs 08/17/21 01/09/25 Rx amlodipine 5 mg tablet 5 mg PO DAILY #90 tabs 08/10/24 01/09/25 Rx metoprolol succinate 100 mg 100 mg PO DAILY #90 tabs 08/10/24 01/09/25 Rx tablet,extended release 24 hr pantoprazole 40 mg tablet,delayed 40 mg PO DAILY #90 tabs 08/10/24 01/09/25 Rx release (Protonix) nitroglycerin 0.4 mg sublingual 0.4 mg sublingual Q5M PRN chest 10/13/24 01/09/25 Rx tablet (Nitrostat) pain #30 tabs clopidogrel 75 mg tablet 75 mg PO DAILY 11/02/24 01/09/25 History sacubitril 24 mg-valsartan 26 mg 1 tab PO BID #180 tabs 12/04/24 01/09/25 Rx tablet Exam Narrative Exam Narrative: GEN: Alert and oriented x 4, pleasant and cooperative, gives linear history. No acute distress at rest. HEENT: Head atraumatic. Conjunctiva clear, no icterus. PEERL, EOMI. no rhinorrhea. MMM, OP benign. Neck is supple with no masses or lymphadenopathy, trachea midline LUNGS: CTAB with normal effort CV: Regular bigeminy, with no murmurs, gallops, or rubs. Carotid pulse 2+ charley ABD: active bowel sounds, soft, nontender and nondistended. No masses. EXT: no cyanosis, clubbing, or edema MSK: No joint redness or swelling NEURO: CN 2-12 grossly intact. Normal movement of 4 extremities. Normal speech and coordination. No tremor SKIN: No rashes or open wounds. PSYCH: normal mood and affect, normal thought process Results Imaging Chest x-ray: report reviewed (No acute pulmonary findings on this single AP portable view of the chest.) and image reviewed EKG: report reviewed and image reviewed (ventricular bigeminy, HR 84, no ST-T abnormality) Labs 01/09/25 06:07 01/09/25 06:07 Labs: Laboratory Results - last 24 hr 01/09/25 01/09/25 01/09/25 06:07 07:25 09:30 WBC 7.45 RBC 5.32 Hgb 16.1 Hct 48.4 MCV 91 MCH 30.3 MCHC 33.3 RDW 12.4 Plt Count 186 MPV 9.5 Immature Gran % 0.4 Neutrophils % 62.4 Lymphocytes % 17.3 Monocytes % 12.8 Eosinophils % 6.6 Basophils % 0.5 Nucleated RBC % 0.0 Absolute Neutrophils 4.65 Absolute Lymphocytes 1.29 Absolute Monocytes 0.95 H Absolute Eosinophils 0.49 Absolute Basophils 0.04 PT 9.8 INR 1.0 APTT 27.0 Sodium 140 Potassium 4.2 Chloride 105 Carbon Dioxide 28.4 Anion Gap 6.6 BUN 19 Creatinine 1.1 Est GFR (CKD-EPI 2020) 66.33 Glucose 100 Calcium 9.6 Total Bilirubin 0.70 AST 21 ALT 21 Alkaline Phosphatase 72 Troponin I 4 4 3 NT-Pro-B Natriuret Pep 162 Total Protein 7.5 Albumin 4.7 Last Vital Signs Temp 36.3 C L 01/09/25 15:25 Pulse 51 L 01/09/25 15:25 Resp 18 01/09/25 15:25 BP 126/94 H 01/09/25 15:25 Pulse Ox 96 01/09/25 15:25 Time Spent Time spent with Patient: 55-74 minutes Time was spent: preparing to see the patient(eg.review tests), obtaining and/or reviewing separately otained hiistory, ordering medications,tests, procedures, referring, communicating with other health patient care secretary, indepentently interpreting results, counseling the patient and care coordination
[2025-01-09 16:03] LABS: PTT Activated 75.7 sec (20.6-30.2)
--- NOTE | 2025-01-09 16:31 | DSE_ITS ---
Date of service: 01/09/25 Time of Service: 16:31 DS: Diagnosis Discharge Diagnosis (1) Unstable angina: Status: Acute (2) HFrEF (heart failure with reduced ejection fraction): Status: Acute (3) CAD (coronary artery disease): (4) Gastroesophageal reflux disease: Status: Chronic (5) Chronic kidney disease (CKD): Status: Chronic (6) Benign prostatic hyperplasia: Status: Acute Discharge Plan Disposition Patient Disposition: Transfer-Acute Inpatient Care Specific Acute Inpt Facility: [facility] Condition: Fair Discharge Details Reason For Visit: Unstable angina Admit Date/Time: 01/09/25 08:04 Admit Provider: Mike Juarez Attending Provider: Mike Juarez [facility] Hospital Course: 74-year-old male patient past medical history significant for coronary artery disease status post multiple stents with known 98% stenosis of D2 branch of LAD s/p angioplasty 10/30/24, HFrEF LVEF 35-40%, borderline CKD3a, GERD, hypertension presented to the emergency department early in the morning 01/09 with recurrent chest pain that started the night before. Pain relieved by rest and NTG. Pain recurrent with exertion since then. Patient started on heparin drip and the rest of his medications continued. [facility] consulted and he was accepted by cardiology under Dr. Hui pending bed, which became available 01/09. He had no chest pain and the time of transfer Home Meds and New Rx's Prescriptions: No Action nitroglycerin [Nitrostat] 0.4 mg tablet, sublingual 0.4 mg Sublingual Q5M PRN (Reason: chest pain) Qty: 30 12RF Rx Instructions: Call EMS if needed, up to 3 doses. amlodipine 5 mg tablet 5 mg PO DAILY Qty: 90 3RF metoprolol succinate 100 mg tablet extended release 24 hr 100 mg PO DAILY Qty: 90 3RF pantoprazole [Protonix] 40 mg tablet,delayed release (DR/EC) 40 mg PO DAILY Qty: 90 3RF clopidogrel 75 mg tablet 75 mg PO DAILY glucosam-chond zj-foqvml-an ac 1 EACH capsule 1 ea PO BID Rx Instructions: takes 2 caps qd acetaminophen 500 mg tablet 1,500 mg PO BID PRN (Reason: pain) Qty: 270 3RF Rx Instructions: for musculoskeletal discomfort - TDD ~ 3,900mg aspirin 325 mg tablet 325 mg PO DAILY Qty: 90 3RF sacubitril-valsartan 24-26 mg tablet 1 tab PO BID Qty: 180 3RF Discharge Instructions Activity:: Activity as Tolerated Equipment/Supplies:: No Equipment Needed Diet:: Low Sodium Discharge Orders Discharge Orders: Discharge Order (Routine); Ordered 01/09/25 Ordered By: Mike Juarez DS: Summary Time Spent with Patient providing and/or coordinating discharge services: Greater than 30 minutes Status at Discharge Functional status at discharge: independent ambulation Overall status at discharge: patient is not back to baseline Mental Status: mental status grossly normal Speech and Movement: speech and movement normal Mood: congruent mood Affect: normal affect Exam Narrative Exam Narrative: GEN: Alert and oriented x 4, pleasant and cooperative, gives linear history. No acute distress at rest. HEENT: Head atraumatic. Conjunctiva clear, no icterus. PEERL, EOMI. no rhinorrhea. MMM, OP benign. Neck is supple with no masses or lymphadenopathy, trachea midline LUNGS: CTAB with normal effort CV: Regular bigeminy, with no murmurs, gallops, or rubs. Carotid pulse 2+ charley ABD: active bowel sounds, soft, nontender and nondistended. No masses. EXT: no cyanosis, clubbing, or edema MSK: No joint redness or swelling NEURO: CN 2-12 grossly intact. Normal movement of 4 extremities. Normal speech and coordination. No tremor SKIN: No rashes or open wounds. PSYCH: normal mood and affect, normal thought process Psych Mental Status: mental status grossly normal Speech and Movement: speech and movement normal Mood: congruent mood Affect: normal affect DS: Data Vitals/I&O Vitals and I&O: Vital Signs Temperature 36.3 C L 01/09/25 15:25 Temperature Source Temporal Artery Scan 01/09/25 15:25 Pulse 51 L 01/09/25 15:25 Pulse Rhythm Regular 01/09/25 09:36 Pulse 81 01/09/25 07:46 Respiratory Rate 18 01/09/25 15:25 Respiratory Effort Normal 01/09/25 09:36 Respiratory Depth Normal 01/09/25 09:36 Respiratory Pattern Normal 01/09/25 09:36 Blood Pressure 126/94 H 01/09/25 15:25 Blood Pressure Mean 104 01/09/25 15:25 Pulse Oximetry 96 01/09/25 15:25 Oxygen Delivery Method Room Air 01/09/25 15:25 Oxygen Flow Rate 0 01/09/25 15:25 Pain Level 3 01/09/25 07:40 Intake & Output 01/08/25 01/09/25 01/09/25 23:59 11:59 23:59 Intake Total 252.192 / 732.192 480 / 732.192 Balance 252.192 / 732.192 480 / 732.192 Weight 78.925 kg Intake: IV 12.192 / 12.192 Oral 240 / 720 480 / 720 Other: Urine Appearance Clear Data Completed and Pending Pending Labs at Discharge: 01/09/25 01/09/25 01/09/25 06:07 07:25 09:30 WBC 7.45 RBC 5.32 Hgb 16.1 Hct 48.4 MCV 91 MCH 30.3 MCHC 33.3 RDW 12.4 Plt Count 186 MPV 9.5 Immature Gran % 0.4 Neutrophils % 62.4 Lymphocytes % 17.3 Monocytes % 12.8 Eosinophils % 6.6 Basophils % 0.5 Nucleated RBC % 0.0 Absolute Neutrophils 4.65 Absolute Lymphocytes 1.29 Absolute Monocytes 0.95 H Absolute Eosinophils 0.49 Absolute Basophils 0.04 PT 9.8 INR 1.0 APTT 27.0 Sodium 140 Potassium 4.2 Chloride 105 Carbon Dioxide 28.4 Anion Gap 6.6 BUN 19 Creatinine 1.1 Est GFR (CKD-EPI 2020) 66.33 Glucose 100 Calcium 9.6 Total Bilirubin 0.70 AST 21 ALT 21 Alkaline Phosphatase 72 Troponin I 4 4 3 NT-Pro-B Natriuret Pep 162 Total Protein 7.5 Albumin 4.7 01/09/25 15:43 WBC RBC Hgb Hct MCV MCH MCHC RDW Plt Count MPV Immature Gran % Neutrophils % Lymphocytes % Monocytes % Eosinophils % Basophils % Nucleated RBC % Absolute Neutrophils Absolute Lymphocytes Absolute Monocytes Absolute Eosinophils Absolute Basophils PT INR APTT 75.7 H Sodium Potassium Chloride Carbon Dioxide Anion Gap BUN Creatinine Est GFR (CKD-EPI 2020) Glucose Calcium Total Bilirubin AST ALT Alkaline Phosphatase Troponin I NT-Pro-B Natriuret Pep Total Protein Albumin PFSH All Active Problems Unstable angina (Acute) Cardiomyopathy (Acute) S/P angioplasty (Acute) [place] [facility] [place] Len Warren MD HFrEF (heart failure with reduced ejection fraction) (Acute) Unstable angina (Acute) BPPV (benign paroxysmal positional vertigo) (Acute) 10/15/24. [facility]. 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 Tinajero imiquimod cream, excessive reaction Irritant dermatitis (Acute 01/28/14) Dr. Tinajero rgt anterior tovar Gastroesophageal reflux disease (Chronic 02/25/03) E[place] Dr Rapp [place] [place]; residential PPI Essential hypertension (Chronic 11/28/12) Cor athrscl-uns vessel (Chronic 06/09/07) 2 CHIQUITA stents RCA 05/2007; and one RCA 03/2010; [place] Chronic rhinitis (Acute 05/04/11) Benign prostatic hyperplasia (Acute 03/12/13) 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) Medical History Anxiety CAD (coronary artery disease) Surgical History [place] of heart artery stent [place] [place]A cont lesion; ,mid 1 RCA lesion Social History Smoking/Tobacco Use Status: Never Smoking risk assessment performed?: Yes Alcohol Intake: current Alcohol Intake frequency: a few times a month Alcohol type: beer Drug use: Never Substance use type: does not use Adopted: Yes Caregiver/Support person: No Household members: spouse Housing: house Number of Children: 2 number of grandchildren: 2 Communication Needs: None Do you need help understanding health information?: Rarely 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: No Water heater temp set <120 deg: Yes Working smoke detector in home: Yes Fire extinguisher in home: Yes Carbon monox detector in home: Yes Do you feel safe at home: Yes Do you feel safe in your relationship?: Yes Victim of physical abuse: No Victim of emotional abuse: No Victim of sexual abuse: No Time Spent with Patient Time Spent with Patient: 45-69 minutes Time was spent: preparing to see the patient(eg.review tests), obtaining and/or reviewing separately otained hiistory, ordering medications,tests, procedures, referring, communicating with other health critical care nurse, indepentently interpreting results, counseling the patient and care coordination
--- NOTE | 2025-01-09 18:10 | NUR.NOTE ---
Nursing Note: Report called to DYLON Ken at [facility] [place] cardiology- [phone]. Head to toe, tele rhythm, nitro admin, vitals, pain, heparin drip and ptt/w time drawn.
== END 2025-01-09 19:27 | disposition short-term general hospital (02) | DRG 303 ==
LOC: ER 06:00 → MS 09:20
PROVIDERS: Admitting Provider Family Medicine; Emergency Provider Student in an Organized Health Care Education/Training Program; PCP Family Medicine; Responsible Provider Family Medicine; Visit Provider Family Medicine
DX: I25.110 Atherosclerotic heart disease of native coronary artery with unstable angina pectoris (principal); I50.20 Unspecified systolic (congestive) heart failure; K21.9 Gastro-esophageal reflux disease without esophagitis; N13.8 Other obstructive and reflux uropathy; I13.0 Hypertensive heart and chronic kidney disease with heart failure and stage 1 through stage 4 chronic kidney disease, or unspecified chronic kidney disease; N18.31 Chronic kidney disease, stage 3a; Z95.5 Presence of coronary angioplasty implant and graft; I42.9 Cardiomyopathy, unspecified; M54.2 Cervicalgia; E78.5 Hyperlipidemia, unspecified; M54.42 Lumbago with sciatica, left side; N40.1 Benign prostatic hyperplasia with lower urinary tract symptoms
CPT/HCPCS: 00123; 36415; 80053; 93005; 96365; 99285; 71045; 83880; 84484; 85025; 85610; 85730; 93010; 99236; J1644

== ENCOUNTER 2025-01-18 08:00 | Outpatient (RCR) | payer MEDICARE, OTHER, SELFPAY | END 2025-01-24 23:59 | disposition home or self-care (01) | LOC: CR 08:00 | PROVIDERS: PCP Family Medicine; Visit Provider Internal Medicine Cardiovascular Disease | DX: I21.4 Non-ST elevation (NSTEMI) myocardial infarction (principal); Z98.61 Coronary angioplasty status; Z51.89 Encounter for other specified aftercare | CPT/HCPCS: S9472 ==

== ENCOUNTER 2025-02-10 08:00 | Outpatient (RCR) | payer MEDICARE, OTHER, SELFPAY | END 2025-02-24 23:59 | disposition home or self-care (01) | LOC: CR 08:00 | PROVIDERS: PCP Family Medicine; Visit Provider Internal Medicine Cardiovascular Disease | DX: I21.4 Non-ST elevation (NSTEMI) myocardial infarction (principal); Z95.2 Presence of prosthetic heart valve; Z98.61 Coronary angioplasty status; Z51.89 Encounter for other specified aftercare | CPT/HCPCS: S9472 ==

== ENCOUNTER 2025-02-24 08:00 | Outpatient (RCR) | payer MEDICARE, OTHER, SELFPAY | END 2025-02-24 23:59 | disposition home or self-care (01) | LOC: CR 08:00 | PROVIDERS: PCP Family Medicine; Visit Provider Internal Medicine Cardiovascular Disease | DX: I21.4 Non-ST elevation (NSTEMI) myocardial infarction (principal); Z95.2 Presence of prosthetic heart valve; Z51.89 Encounter for other specified aftercare | CPT/HCPCS: S9472 ==